=== PATIENT | male | born 1960 | race Caucasian/White ===

== ENCOUNTER 2021-08-07 10:29 | Inpatient (IN) | payer MEDICARE, MEDICAID ==
--- NOTE | 2021-08-07 10:39 | EDM.PDOC ---
ED HPI GENERAL MEDICAL PROBLEM - General Stated Complaint: [facility] Time Seen by Provider: 08/07/21 10:30 Source of Information: Reports: Patient, EMS History Limitations: Reports: Physical Impairment, Respiratory Distress - History of Present Illness INITIAL COMMENTS - FREE TEXT/NARRATIVE: 61-year-old unvaccinated for Covid male presents with shortness of breath. He was seen in the clinic 2 weeks ago and diagnosed with bronchitis, put on tapering prednisone and Zithromax. He seemed to get better but over the last couple of days he has been worse. No fevers or chills. One of his children c alled him today and he sounded so poorly that they sent the ambulance to his home. They found him hypoxic, very low oxygen saturations and struggling. He is not febrile. He is oxygenating into the upper 80s to low 90s with 15 L of nonrebreather. 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) Musculoskeletal History: Reports: Back Pain, Chronic Endocrine/Metabolic History: Reports: Multinodular Thyroid - Infectious Disease History Infectious Disease History: Reports: Chicken Pox, Measles, Mumps - Past Surgical History Head Surgeries/Procedures: Reports: None HEENT Surgical History: Reports: Adenoidectomy, Tonsillectomy Musculoskeletal Surgical History: Reports: Other (See Below) Other Musculoskeletal Surgeries/Procedures:: left ankle break x2 Dermatological Surgical History: Reports: None Social & Family History - Caffeine Use Caffeine Use: Reports: Coffee ED ROS GENERAL - Review of Systems Review Of Systems: See Below Constitutional: Reports: Fever, Chills, Malaise HEENT: Denies: Throat Pain Respiratory: Reports: Shortness of Breath, Wheezing, Cough Cardiovascular: Denies: Chest Pain GI/Abdominal: Reports: No Symptoms. Denies: Nausea, Vomiting : Reports: No Symptoms Musculoskeletal: Reports: Muscle Pain (Some generalized muscle aches) Skin: Reports: Other (Patient was "cyanotic" per EMS on arrival to his apart ment) Neurological: Reports: Dizziness. Denies: Headache Psychiatric: Reports: No Symptoms ED EXAM, GENERAL - Physical Exam Exam: See Below Exam Limited By: No Limitations General Appearance: Alert, Mild Distress (On arrival to the emergency room he had improved, mild respiratory distress with increased respiratory effort) Eye Exam: Bilateral Eye: Normal Inspection Head: Atraumatic Respiratory/Chest: Rales (Bilateral diffuse rales and rhonchi), Rhonchi, Wheezing (Diffuse expiratory wheezing) Cardiovascular: Regular Rate, Rhythm, Tachycardia GI/Abdominal: Soft, Non-Tender Extremities: Other (Patient has a trace of symmetric lower extremity edema bilaterally) Neurological: Alert, Oriented, No Motor/Sensory Deficits Psychiatric: Anxious Skin Exam: Warm, Dry, Other (Skin color is now good, capillary refill is normal) Course - Vital Signs Last Recorded V/S: Last Vital Signs Temp 99.7 F 08/07/21 14:17 Pulse 86 08/07/21 14:17 Resp 20 08/07/21 14:17 BP 118/56 L 08/07/21 14:17 Pulse Ox 91 L 08/07/21 14:17 - Orders/Labs/Meds Orders: Active Orders 24 hr Category Date Time Status CULTURE BLOOD [BC] Urgent Lab 08/07/21 11:00 Received CULTURE BLOOD [BC] Urgent Lab 08/07/21 11:10 Received Baricitinib [Olumiant] Med 08/07/21 13:00 Active 2 mg PO DAILY Blood Culture x2 Reflex Set [OM.PC] Urgent Oth 08/07/21 10:38 Ordered Medication Orders Acetaminophen (Acetaminophen 325 Mg Tab) 650 mg PO Q4H PRN PRN Reason: Pain (Mild 1-3)/fever Albuterol (Albuterol 8 Gm Inhaler) 0 gm INH ASDIRECTED PRN PRN Reason: Shortness of Breath Baricitinib (Baricitinib 2 Mg Tab) 2 mg PO DAILY LUIS ALBERTO Stop: 08/20/21 09:01 Last Admin: 08/07/21 13:12 Dose: 2 mg Documented by: DANDRE Dexamethasone (Dexamethasone 4 Mg/Ml Sdv) 6 mg IVPUSH Q24H [facility] Enoxaparin Sodium (Enoxaparin 40 Mg/0.4 Ml Syringe) 40 mg SUBCUT Q24H [facility] Remdesivir 100 mg/ Sodium (Chloride) 100 mls @ 100 mls/hr IV Q24H [facility] Stop: 08/11/21 13:59 Mometasone Furoate/Formoterol Fumar (Formoterol/Mometasone 200-5 Mcg 8.8 Gm Inhaler) 2 puff IH BIDRT [facility] Ondansetron HCl (Ondansetron 4 Mg/2 Ml Sdv) 4 mg IV Q4H PRN PRN Reason: Nausea/Vomiting Polyethylene Glycol (Polyethylene Glycol 3350 Powder 17 Gm Packet) 17 gm PO DAILY PRN PRN Reason: Constipation Sodium Chloride (Sodium Chloride 0.9% 10 Ml Syringe) 10 ml FLUSH ASDIRECTED PRN PRN Reason: Keep Vein Open Labs: Laboratory Tests 08/07/21 08/07/21 08/07/21 Range/Units 10:37 10:55 11:00 WBC 17.9 H (4.5-11.0) K/uL RBC 5.05 (4.30-5.90) M/uL Hgb 14.2 (12.0-15.0) g/dL Hct 42.8 (40.0-54.0) % MCV 85 (80-98) fL MCH 28 (27-31) pg MCHC 33 (32-36) % Plt Count 477 H (150-400) K/uL Add Manual Diff Yes Neutrophils % (Manual) 89 H (36-66) % Band Neutrophils % 2 L (5-11) % Lymphocytes % (Manual) 7 L (24-44) % Monocytes % (Manual) 2 (2-6) % Atypical Lymphocytes Rare Puncture Site Rt radial ABG pH 7.476 H (7.350-7.450) ABG pCO2 34.5 L (35.0-42.0) mmHg ABG pO2 111.0 H (75.0-100.0) mmHg ABG HCO3 25.2 (22.0-26.0) mmol/L ABG Total CO2 21.6 L (23.0-27.0) mmol/L ABG O2 Saturation 98.3 H (95.0-98.0) % ABG O2 Content 19.8 (15.0-23.0) %vol ABG Base Excess 2.4 mm/L ABG Hemoglobin 14.7 (13.5-18.0) g/dL ABG Oxyhemoglobin 95.4 % ABG Carboxyhemoglobin 2.3 H (0.0-1.6) % ABG Methemoglobin 0.7 % Daquan Test Pass O2 Delivery Device Non rebr mask Oxygen Flow Rate 15.0 L Sodium (140-148) mmol/L Potassium (3.6-5.2) mmol/L Chloride (100-108) mmol/L Carbon Dioxide (21-32) mmol/L Anion Gap (5.0-14.0) mmol/L BUN (7-18) mg/dL Creatinine (0.8-1.3) mg/dL Est Cr Clr Drug Dosing mL/min Estimated GFR (MDRD) (>60) Glucose (74-106) mg/dL Lactic Acid (0.4-2.0) mmol/L Calcium (8.5-10.1) mg/dL Total Bilirubin (0.2-1.0) mg/dL AST (15-37) U/L ALT (12-78) U/L Alkaline Phosphatase (46-116) U/L Total Protein (6.4-8.2) g/dL Albumin (3.4-5.0) g/dL Globulin (2.3-3.5) g/dL Albumin/Globulin Ratio (1.2-2.2) Influenza Type A RNA Negative (NEGATIVE) RSV RNA (INAAT) Negative (NEGATIVE) Influenza Type B RNA Negative (NEGATIVE) SARS-CoV-2 RNA (TOM) Positive H (NEGATIVE) 08/07/21 08/07/21 Range/Units 11:00 11:00 WBC (4.5-11.0) K/uL RBC (4.30-5.90) M/uL Hgb (12.0-15.0) g/dL Hct (40.0-54.0) % MCV (80-98) fL MCH (27-31) pg MCHC (32-36) % Plt Count (150-400) K/uL Add Manual Diff Neutrophils % (Manual) (36-66) % Band Neutrophils % (5-11) % Lymphocytes % (Manual) (24-44) % Monocytes % (Manual) (2-6) % Atypical Lymphocytes Puncture Site ABG pH (7.350-7.450) ABG pCO2 (35.0-42.0) mmHg ABG pO2 (75.0-100.0) mmHg ABG HCO3 (22.0-26.0) mmol/L ABG Total CO2 (23.0-27.0) mmol/L ABG O2 Saturation (95.0-98.0) % ABG O2 Content (15.0-23.0) %vol ABG Base Excess mm/L ABG Hemoglobin (13.5-18.0) g/dL ABG Oxyhemoglobin % ABG Carboxyhemoglobin (0.0-1.6) % ABG Methemoglobin % [place] Test O2 Delivery Device Oxygen Flow Rate L Sodium 136 L (140-148) mmol/L Potassium 3.5 L (3.6-5.2) mmol/L Chloride 94 L (100-108) mmol/L Carbon Dioxide 30 (21-32) mmol/L Anion Gap 15.5 H (5.0-14.0) mmol/L BUN 33 H (7-18) mg/dL Creatinine 2.0 H (0.8-1.3) mg/dL Est Cr Clr Drug Dosing 43.11 mL/min Estimated GFR (MDRD) 34 L (>60) Glucose 119 H (74-106) mg/dL Lactic Acid 3.2 H (0.4-2.0) mmol/L Calcium 7.9 L (8.5-10.1) mg/dL Total Bilirubin 2.1 H (0.2-1.0) mg/dL AST 98 H (15-37) U/L ALT 89 H (12-78) U/L Alkaline Phosphatase 160 H (46-116) U/L Total Protein 7.0 (6.4-8.2) g/dL Albumin 2.3 L (3.4-5.0) g/dL Globulin 4.7 H (2.3-3.5) g/dL Albumin/Globulin Ratio 0.5 L (1.2-2.2) Influenza Type A RNA (NEGATIVE) RSV RNA (INAAT) (NEGATIVE) Influenza Type B RNA (NEGATIVE) SARS-CoV-2 RNA (TOM) (NEGATIVE) Meds: Medications Generic Name Dose Route Start Last Admin Trade Name Freq PRN Reason Stop Dose Admin Acetaminophen 650 mg 08/07/21 14:16 Acetaminophen 325 Mg Tab PO Q4H PRN Pain (Mild 1-3)/fever Albuterol 0 gm 08/07/21 14:16 Albuterol 8 Gm Inhaler INH ASDIRECTED PRN Shortness of Breath Baricitinib 2 mg 08/07/21 13:00 08/07/21 13:12 Baricitinib 2 Mg Tab PO 08/20/21 09:01 2 mg DAILY LUIS ALBERTO Administration Dexamethasone 6 mg 08/08/21 09:00 Dexamethasone 4 Mg/Ml Sdv IVPUSH Q24H LUIS ALBERTO Enoxaparin Sodium 40 mg 08/07/21 16:00 Enoxaparin 40 Mg/0.4 Ml Syringe SUBCUT Q24H ULIS ALBERTO Remdesivir 100 mg/ Sodium 100 mls @ 100 mls/hr 08/08/21 13:00 Chloride IV 08/11/21 13:59 Q24H LUIS ALBERTO Mometasone Furoate/Formoterol Fumar 2 puff 08/07/21 21:00 Formoterol/Mometasone 200-5 Mcg 8.8 Gm Inhaler IH BIDRT LUIS ALBERTO Ondansetron HCl 4 mg 08/07/21 14:16 Ondansetron 4 Mg/2 Ml Sdv IV Q4H PRN Nausea/Vomiting Polyethylene Glycol 17 gm 08/07/21 14:16 Polyethylene Glycol 3350 Powder 17 Gm Packet PO DAILY PRN Constipation Sodium Chloride 10 ml 08/07/21 14:16 Sodium Chloride 0.9% 10 Ml Syringe FLUSH ASDIRECTED PRN Keep Vein Open Discontinued Medications Generic Name Dose Route Start Last Admin Trade Name Portia PRN Reason Stop Dose Admin Remdesivir 200 mg/ Sodium 250 mls @ 250 mls/hr 08/07/21 13:00 08/07/21 13:09 Chloride IV 08/07/21 13:59 250 mls/hr ONETIME ONE Administration Methylprednisolone Sodium Succinate 125 mg 08/07/21 11:06 08/07/21 11:09 Methylprednisolone Sodium Succinate 125 Mg/2 Ml Sdv IVPUSH 08/07/21 11:07 125 mg ONETIME ONE Administration - Re-Assessments/Exams Free Text/Narrative Re-Assessment/Exam: 08/07/21 13:06 High flow oxygen was continued and a portable chest x-ray was obtained. This showed bilateral pulmonary infiltrates, left greater than right. IVs were started and the patient was given 125 mg of IV Solu-Medrol. A DuoNeb was initially ordered but held pending coronavirus testing, which returned positive. After consultation with the hospitalist service, 200 mg of IV remdesivir was given and the patient will be prepared for inpatient hospitalization for treatment for pneumonia due to COVID-19, resulting in hypoxia. Departure - Departure Time of Disposition: 14:02 Disposition: Admitted As Inpatient 67 Clinical Impression: Pneumonia due to COVID-19 virus, Hypoxia - Discharge Information Sepsis Event Note (ED) - Focused Exam Vital Signs: Vital Signs Temp Pulse Resp BP Pulse Ox 08/07/21 11:43 100 101/64 87 L 08/07/21 11:14 91 16 109/51 L 88 L 08/07/21 10:36 96.6 F L 108 H 30 H 103/50 L 90 L - My Orders Last 24 Hours: My Active Orders 08/07/21 10:38 Blood Culture x2 Reflex Set [OM.PC] Urgent 08/07/21 11:00 CULTURE BLOOD [BC] Urgent 08/07/21 11:10 CULTURE BLOOD [BC] Urgent - Assessment/Plan Last 24 Hours: My Active Orders 08/07/21 10:38 Blood Culture x2 Reflex Set [OM.PC] Urgent 08/07/21 11:00 CULTURE BLOOD [BC] Urgent 08/07/21 11:10 CULTURE BLOOD [BC] Urgent
[2021-08-07] MEDS ORDERED: methylPREDNISolone Sodium Succinate 125 MG/2 ML SDV IVPUSH ONE (11:06)
[2021-08-07 11:29] LABS: CORONAVIRUS COVID-19 NAA POSITIVE (NEGATIVE)
--- NOTE | 2021-08-07 11:40 | CR ---
CHEST: Portable 08/07/2021 at 11:33 AM CLINICAL HISTORY:Hypoxia COMPARISON:2018 FINDINGS: There are diffuse bilateral pulmonary infiltrates left greater than right. Heart is enlarged but similar to prior study. No effusions are seen. Impression: Moderate diffuse bilateral pulmonary infiltrates
[2021-08-07] MEDS ORDERED: REMDESIVIR 200 MG in Sodium Chloride 0.9% 250 ML IV ONE ×2 (12:13→13:00)
--- NOTE | 2021-08-07 12:44 | PCM.HP.2 ---
H&P History of Present Illness - General Date of Service: 08/07/21 Admit Problem/Dx: Admission Diagnosis/Problem Admission Diagnosis/Problem Hypoxia Source of Information: Patient, Provider, RN Notes Reviewed History Limitations: Reports: No Limitations - History of Present Illness Initial Comments - Free Text/Narative: Mr. Loaiza is a 61-year-old gentleman who was admitted through the emergency department with weakness, shortness of breath, and hypoxia, secondary to COVID- 19 infection with bilateral pneumonia. He is not felt well over the past 8 days with progressive weakness and shortness of breath. Family called EMS to have the patient checked on when they were unable to get a hold of him. He was found to be extremely hypoxic with an oxygen saturation on room air of 60%. He was brought into the emergency department for further evaluation. Chest x-ray shows bilateral pulmonary infiltrates consistent with COVID-19 infection. He is currently on maximal flow with a nonrebreather mask and has adequate saturations. White blood cell count is elevated and procalcitonin level is 1.07. D-dimer is close to 2000 and C-reactive protein is 24. 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) Respiratory History: Reports: Asthma Musculoskeletal History: Reports: Back Pain, Chronic Endocrine/Metabolic History: Reports: Multinodular Thyroid, Obesity/BMI 30+ - Infectious Disease History Infectious Disease History: Reports: Chicken Pox, Measles, Mumps - Past Surgical History Head Surgeries/Procedures: Reports: None HEENT Surgical History: Reports: Adenoidectomy, Tonsillectomy Musculoskeletal Surgical History: Reports: Other (See Below) Other Musculoskeletal Surgeries/Procedures:: left ankle break x2 Social & Family History - Tobacco Use Tobacco Use Status *Q: Former Tobacco User Used Tobacco, but Quit: Yes Month/Year Tobacco Last Used: 2014 - Caffeine Use Caffeine Use: Reports: Coffee - Recreational Drug Use Recreational Drug Use: No H&P Review of Systems - Review of Systems: Review Of Systems: See Below General: Reports: Malaise, Weakness, Fatigue. Denies: Fever, Chills HEENT: Reports: No Symptoms Pulmonary: Reports: Shortness of Breath, Cough. Denies: Wheezing, Pleuritic Chest Pain, Sputum, Hemoptysis Cardiovascular: Reports: Dyspnea on Exertion. Denies: Chest Pain, Palpitations, Orthopnea, PND, Edema, Lightheadedness Gastrointestinal: Reports: No Symptoms Genitourinary: Reports: No Symptoms Musculoskeletal: Reports: No Symptoms Skin: Reports: No Symptoms Psychiatric: Reports: No Symptoms Neurological: Reports: No Symptoms Hematologic/Lymphatic: Reports: No Symptoms Immunologic: Reports: No Symptoms Exam - Exam Exam: See Below - Vital Signs Vital Signs: Last Vital Signs Temp 96.6 F L 08/07/21 10:36 Pulse 92 08/07/21 12:35 Resp 16 08/07/21 11:14 BP 114/72 08/07/21 12:35 Pulse Ox 90 L 08/07/21 12:35 Weight: 350 lb - Exam Quality Assessment: Supplemental Oxygen, DVT Prophylaxis General: Alert, Oriented, Cooperative, Moderate Distress HEENT: Conjunctiva Clear, Hearing Intact, Mucosa Moist & Kuna, Normal Nasal Septum, Posterior Pharynx Clear, Pupils Equal Neck: Supple, Trachea Midline, +2 Carotid Pulse wo Bruit Lungs: Decreased Breath Sounds, Crackles. No: Rales, Rhonchi, Wheezing Cardiovascular: Regular Rate, Regular Rhythm, Normal S1, Normal S2. No: Systolic Murmur, Diastolic Murmur GI/Abdominal Exam: Soft, Non-Tender, No Organomegaly, No Distention Back Exam: Normal Inspection, Full Range of Motion Extremities: Non-Tender, No Pedal Edema Skin: Warm, Dry, Intact Neurological: Cranial Nerves Intact, Strength Equal Bilateral, Normal Speech, Normal Tone, Sensation Intact. No: Focal Deficit Neuro Extensive - Mental Status: Alert, Oriented x3, Normal Mood/Affect, Normal Cognition, Memory Intact - Patient Data Lab Results Last 24 hrs: Laboratory Results - last 24 hr 08/07/21 08/07/21 08/07/21 Range/Units 10:37 10:55 11:00 WBC 17.9 H (4.5-11.0) K/uL RBC 5.05 (4.30-5.90) M/uL Hgb 14.2 (12.0-15.0) g/dL Hct 42.8 (40.0-54.0) % MCV 85 (80-98) fL MCH 28 (27-31) pg MCHC 33 (32-36) % Plt Count 477 H (150-400) K/uL Add Manual Diff Yes Neutrophils % (Manual) 89 H (36-66) % Band Neutrophils % 2 L (5-11) % Lymphocytes % (Manual) 7 L (24-44) % Monocytes % (Manual) 2 (2-6) % Atypical Lymphocytes Rare Puncture Site Rt radial ABG pH 7.476 H (7.350-7.450) ABG pCO2 34.5 L (35.0-42.0) mmHg ABG pO2 111.0 H (75.0-100.0) mmHg ABG HCO3 25.2 (22.0-26.0) mmol/L ABG Total CO2 21.6 L (23.0-27.0) mmol/L ABG O2 Saturation 98.3 H (95.0-98.0) % ABG O2 Content 19.8 (15.0-23.0) %vol ABG Base Excess 2.4 mm/L ABG Hemoglobin 14.7 (13.5-18.0) g/dL ABG Oxyhemoglobin 95.4 % ABG Carboxyhemoglobin 2.3 H (0.0-1.6) % ABG Methemoglobin 0.7 % [facility] Test Pass O2 Delivery Device Non rebr mask Oxygen Flow Rate 15.0 L Sodium (140-148) mmol/L Potassium (3.6-5.2) mmol/L Chloride (100-108) mmol/L Carbon Dioxide (21-32) mmol/L Anion Gap (5.0-14.0) mmol/L BUN (7-18) mg/dL Creatinine (0.8-1.3) mg/dL Est Cr Clr Drug Dosing mL/min Estimated GFR (MDRD) (>60) Glucose (74-106) mg/dL Lactic Acid (0.4-2.0) mmol/L Calcium (8.5-10.1) mg/dL Total Bilirubin (0.2-1.0) mg/dL AST (15-37) U/L ALT (12-78) U/L Alkaline Phosphatase (46-116) U/L Total Protein (6.4-8.2) g/dL Albumin (3.4-5.0) g/dL Globulin (2.3-3.5) g/dL Albumin/Globulin Ratio (1.2-2.2) Influenza Type A RNA Negative (NEGATIVE) RSV RNA (INAAT) Negative (NEGATIVE) Influenza Type B RNA Negative (NEGATIVE) SARS-CoV-2 RNA (TOM) Positive H (NEGATIVE) 08/07/21 08/07/21 Range/Units 11:00 11:00 WBC (4.5-11.0) K/uL RBC (4.30-5.90) M/uL Hgb (12.0-15.0) g/dL Hct (40.0-54.0) % MCV (80-98) fL MCH (27-31) pg MCHC (32-36) % Plt Count (150-400) K/uL Add Manual Diff Neutrophils % (Manual) (36-66) % Band Neutrophils % (5-11) % Lymphocytes % (Manual) (24-44) % Monocytes % (Manual) (2-6) % Atypical Lymphocytes Puncture Site ABG pH (7.350-7.450) ABG pCO2 (35.0-42.0) mmHg ABG pO2 (75.0-100.0) mmHg ABG HCO3 (22.0-26.0) mmol/L ABG Total CO2 (23.0-27.0) mmol/L ABG O2 Saturation (95.0-98.0) % ABG O2 Content (15.0-23.0) %vol ABG Base Excess mm/L ABG Hemoglobin (13.5-18.0) g/dL ABG Oxyhemoglobin % ABG Carboxyhemoglobin (0.0-1.6) % ABG Methemoglobin % [facility] Test O2 Delivery Device Oxygen Flow Rate L Sodium 136 L (140-148) mmol/L Potassium 3.5 L (3.6-5.2) mmol/L Chloride 94 L (100-108) mmol/L Carbon Dioxide 30 (21-32) mmol/L Anion Gap 15.5 H (5.0-14.0) mmol/L BUN 33 H (7-18) mg/dL Creatinine 2.0 H (0.8-1.3) mg/dL Est Cr Clr Drug Dosing 43.11 mL/min Estimated GFR (MDRD) 34 L (>60) Glucose 119 H (74-106) mg/dL Lactic Acid 3.2 H (0.4-2.0) mmol/L Calcium 7.9 L (8.5-10.1) mg/dL Total Bilirubin 2.1 H (0.2-1.0) mg/dL AST 98 H (15-37) U/L ALT 89 H (12-78) U/L Alkaline Phosphatase 160 H (46-116) U/L Total Protein 7.0 (6.4-8.2) g/dL Albumin 2.3 L (3.4-5.0) g/dL Globulin 4.7 H (2.3-3.5) g/dL Albumin/Globulin Ratio 0.5 L (1.2-2.2) Influenza Type A RNA (NEGATIVE) RSV RNA (INAAT) (NEGATIVE) Influenza Type B RNA (NEGATIVE) SARS-CoV-2 RNA (TOM) (NEGATIVE) Result Diagrams: 08/07/21 11:00 08/07/21 11:00 Sepsis Event Note - Evaluation Sepsis Screening Result: Possible Sepsis Risk - Focused Exam Vital Signs: Vital Signs Temp Pulse Resp BP Pulse Ox 08/07/21 12:35 92 114/72 90 L 08/07/21 11:43 100 101/64 87 L 08/07/21 11:14 91 16 109/51 L 88 L 08/07/21 10:36 96.6 F L 108 H 30 H 103/50 L 90 L *Q Meaningful Use (ADM) - VTE Risk Assess *Q Each Risk Factor Represents 1 Point: Obesity ( BMI > 25 kg/m2), Serious lung disease including pneumonia, Abnormal Pulmonary Function (COPD), Other Risk Factor (COVID-19 infection) Total Score 1 Point Risk Factors: 4 Each Risk Factor Represents 2 Points: Age 60 - 74 Years Total Score 2 Point Risk Factors: 2 Each Risk Factor Represents 3 Points: None Total Score 3 Point Risk Factors: 0 Each Risk Factor Represents 5 Points: None Total Score 5 Point Risk Factors: 0 Venous Thromboembolism Risk Factor Score *Q: 6 Problem List Initiated/Reviewed/Updated: Yes Orders Last 24hrs: Active Orders 24 hr Category Date Time Status Patient Status Manage Transfer [TRANSFER] Routine ADT 08/07/21 12:34 Active CRP [C-REACTIVE PROTEIN] [CHEM] Stat Lab 08/07/21 12:43 Ordered CULTURE BLOOD [BC] Urgent Lab 08/07/21 11:00 Received CULTURE BLOOD [BC] Urgent Lab 08/07/21 11:10 Received D Dimer [D-DIMER QUANTITATIVE] [COAG] Stat Lab 08/07/21 12:43 Ordered PROCALCITONIN [CHEM] Stat Lab 08/07/21 12:34 Received Baricitinib [Olumiant] Med 08/07/21 12:45 Ordered 4 mg PO DAILY Remdesivir 200 mg Med 08/07/21 13:00 Active Sodium Chloride 0.9% [Normal Saline] 250 ml IV ONETIME Blood Culture x2 Reflex Set [OM.PC] Urgent Oth 08/07/21 10:38 Ordered Resuscitation Status Routine Resus Stat 08/07/21 12:37 Ordered Medication Orders Baricitinib (Baricitinib 2 Mg Tab) 4 mg PO DAILY LUIS ALBERTO Stop: 08/20/21 09:01 Remdesivir 200 mg/ Sodium (Chloride) 250 mls @ 250 mls/hr IV ONETIME ONE Stop: 08/07/21 13:59 Assessment/Plan Comment:: ASSESSMENT AND PLAN COVID-19 INFECTION-with bilateral pneumonia and acute on chronic hypoxic respiratory failure. He is requiring high level of supplemental oxygen and when found by EMS today was noted to have oxygen saturation in the 60s on room air. He has improved and currently is on nonrebreather at 100% with adequate oxygenation. -Transition to high flow humidified oxygen -Limit IV fluids -Prone positioning if possible -Remdesivir 200 mg IV today, then 100 mg daily for an additional 4 days, today is day 1 of 5 -Solu-Medrol 125 mg IV given in the emergency department -Start dexamethasone 6 mg IV daily tomorrow -Baricitinib 2 mg p.o. daily, reduce dose because of kidney function ACUTE HYPOXIC RESPIRATORY FAILURE-secondary to COVID-19 infection and underlying COPD -Management as above COPD-no evidence of acute exacerbation -Continue outpatient medications CHRONIC KIDNEY DISEASE-unclear as to what his baseline renal function is -Closely monitor urine output and renal function MAINTENANCE ISSUES -DVT prophylaxis; Lovenox 40 mg subcu daily -GI prophylaxis; not indicated -Paulino catheter; not indicated -Nutrition; regular diet -Nicotine dependence; not required CODE STATUS-FULL CODE ADMISSION STATUS-patient will be admitted to inpatient status, expect at least a 2 night hospital stay for evaluation and management of problems as outlined above. At the time of this admission I do not reasonably expected evaluation and management of this problem will require more than a 96 hour hospital stay. DISPOSITION-anticipate discharge to home after the hospital stay. PRIMARY CARE PROVIDER-patient does not currently have a primary care provider - Mortality Measure Prognosis:: Good
[2021-08-07] MEDS ORDERED: Ondansetron 4 MG/2 ML SDV IV PRN (14:16)
[2021-08-07] MEDS ORDERED: Sodium Chloride 0.9% 10 ML Syringe FLUSH PRN (14:16)
[2021-08-07] MEDS ORDERED: Polyethylene Glycol 3350 Powder 17 GM Packet PO PRN (14:16)
[2021-08-07] MEDS ORDERED: Albuterol 8 GM Inhaler INH PRN (14:16)
[2021-08-07] MEDS ORDERED: Acetaminophen 325 MG Tab PO PRN (14:16)
[2021-08-07] MEDS: Enoxaparin 40 MG/0.4 ML Syringe SUBCUT SCH (16:08)
[2021-08-07] MEDS: Formoterol/Mometasone 200-5 MCG 8.8 GM Inhaler IH SCH (20:46)
[2021-08-07] MEDS: Benzonatate 100 MG Cap PO PRN (20:46)
[2021-08-07] MEDS ORDERED: Azithromycin 250 MG Tab PO SCH (23:45)
[2021-08-08] MEDS ORDERED: Doxycycline 100 MG in Sodium Chloride 0.9% 100 ML IV ONE ×2
[2021-08-08] MEDS ORDERED: Dimethicone 20%/Zinc Oxide 25% 56 GM Spray Bottle TOP PRN (05:04)
--- NOTE | 2021-08-08 06:18 | PCM.SN.2 ---
- Free Text/Narrative Note: Telephone calls 2nd Floor Med-Surg time 08/07/2021 @ 23:45 O: severe sepsis risk, WBC 17.9, lactic acid 3.2, crp 24.74 A: sepsis risk, Covid 19 with pneumonia, COPD P: IV Doxy 100 mg every 12 hours PO Zithromax 500mg now, then 250 mg daily x 4 days blood cultures x2 pending am labs pending Time 08/08/2021@ 03:24 O: has note voided >12 hours, bladder scan >1000ml, uncomfortable A: bladder retention P: place indwelling lemus cath for strict I&O urine sample pending Time 08/08/2021@ 05:51 S: patient is anxious, frequent calls worried about health A: anxious about health P: Ativan 0.5 mg po every 4 hours as needed for anxiety may need to increase as needed.
[2021-08-08] MEDS: Formoterol/Mometasone 200-5 MCG 8.8 GM Inhaler IH SCH ×2 (07:36→20:05)
[2021-08-08] MEDS: LORazepam 0.5 MG Tab PO PRN ×2 (08:35→20:01)
[2021-08-08] MEDS: Doxycycline 100 MG in Sodium Chloride 0.9% 100 ML IV SCH ×2 (08:36→20:02)
[2021-08-08] MEDS: Dexamethasone 4 MG/ML SDV IVPUSH SCH (08:36)
[2021-08-08] MEDS ORDERED: Potassium Chloride 20 MEQ Tab.ER PO ONE ×2 (09:30→17:00)
[2021-08-08] MEDS: cefTRIAXone 1 GM in Sodium Chloride 0.9% 50 ML IV SCH (11:23)
[2021-08-08] MEDS ORDERED: REMDESIVIR 100 MG in Sodium Chloride 0.9% 100 ML IV SCH (13:00)
--- NOTE | 2021-08-08 14:50 | PCM.PN ---
- General Info Date of Service: 08/08/21 Subjective Update: Mr. Loaiza has continued to require high flow oxygen throughout the night and has had saturations with activity and even at rest into the 80s. Subjectively he denies shortness of breath, respiratory rate has been in the low to mid 20s. Because of increased hypoxia during the night he was started on antibiotic therapy with doxycycline and ceftriaxone. Functional Status: Denies: Tolerating Diet, Ambulating - Review of Systems General: Reports: Weakness, Fatigue. Denies: Fever, Chills Pulmonary: Reports: Shortness of Breath, Cough. Denies: Pleuritic Chest Pain, Sputum, Hemoptysis, Wheezing Cardiovascular: Reports: Dyspnea on Exertion. Denies: Chest Pain, Palpitations, Orthopnea, PND, Edema, Lightheadedness Gastrointestinal: Reports: No Symptoms Genitourinary: Reports: No Symptoms - Patient Data Vitals - Most Recent: Last Vital Signs Temp 96.6 F L 08/08/21 14:28 Pulse 79 08/08/21 14:28 Resp 18 08/08/21 14:28 BP 121/72 08/08/21 14:28 Pulse Ox 92 L 08/08/21 14:28 Weight - Most Recent: 297 lb I&O - Last 24 Hours: Intake & Output 08/07/21 08/08/21 08/08/21 22:59 06:59 14:59 Intake Total 660 Output Total 2600 250 Balance 660 -2600 -250 Lab Results Last 24 Hours: Laboratory Results - last 24 hr 08/08/21 08/08/21 08/08/21 Range/Units 03:24 04:35 04:35 WBC 19.4 H (4.5-11.0) K/uL RBC 4.93 (4.30-5.90) M/uL Hgb 14.3 (12.0-15.0) g/dL Hct 41.8 (40.0-54.0) % MCV 85 (80-98) fL MCH 29 (27-31) pg MCHC 34 (32-36) % Plt Count 418 H (150-400) K/uL Add Manual Diff Yes Neutrophils % (Manual) 81 H (36-66) % Band Neutrophils % 2 L (5-11) % Lymphocytes % (Manual) 12 L (24-44) % Monocytes % (Manual) 5 (2-6) % D-Dimer, Quantitative 5832.57 H (0.0-500.0) ng/mL Sodium (140-148) mmol/L Potassium (3.6-5.2) mmol/L Chloride (100-108) mmol/L Carbon Dioxide (21-32) mmol/L Anion Gap (5.0-14.0) mmol/L BUN (7-18) mg/dL Creatinine (0.8-1.3) mg/dL Est Cr Clr Drug Dosing mL/min Estimated GFR (MDRD) (>60) Glucose (74-106) mg/dL Calcium (8.5-10.1) mg/dL Total Bilirubin (0.2-1.0) mg/dL AST (15-37) U/L ALT (12-78) U/L Alkaline Phosphatase (46-116) U/L C-Reactive Protein (0.0-0.3) mg/dL Total Protein (6.4-8.2) g/dL Albumin (3.4-5.0) g/dL Globulin (2.3-3.5) g/dL Albumin/Globulin Ratio (1.2-2.2) Urine Color Yellow (YELLOW) Urine Appearance Slightly cloudy A (CLEAR) Urine pH 5.5 (5.0-8.0) Ur Specific [place] 1.025 (1.008-1.030) Urine Protein 30 H (NEGATIVE) mg/dL Urine Glucose (UA) Negative (NEGATIVE) mg/dL Urine Ketones Negative (NEGATIVE) mg/dL Urine Occult Blood Small H (NEGATIVE) Urine Nitrite Negative (NEGATIVE) Urine Bilirubin Small H (NEGATIVE) Urine Urobilinogen 2.0 H (0.2-1.0) EU/dL Ur Leukocyte Esterase Negative (NEGATIVE) Urine RBC 0-5 (0-5) Urine WBC 0-5 (0-5) Ur Epithelial Cells Rare Amorphous Sediment Moderate Urine Bacteria Few Urine Mucus Not seen 08/08/21 Range/Units 04:35 WBC (4.5-11.0) K/uL RBC (4.30-5.90) M/uL Hgb (12.0-15.0) g/dL Hct (40.0-54.0) % MCV (80-98) fL MCH (27-31) pg MCHC (32-36) % Plt Count (150-400) K/uL Add Manual Diff Neutrophils % (Manual) (36-66) % Band Neutrophils % (5-11) % Lymphocytes % (Manual) (24-44) % Monocytes % (Manual) (2-6) % D-Dimer, Quantitative (0.0-500.0) ng/mL Sodium 141 (140-148) mmol/L Potassium 3.4 L (3.6-5.2) mmol/L Chloride 100 (100-108) mmol/L Carbon Dioxide 29 (21-32) mmol/L Anion Gap 15.4 H (5.0-14.0) mmol/L BUN 31 H (7-18) mg/dL Creatinine 1.3 (0.8-1.3) mg/dL Est Cr Clr Drug Dosing 76.15 mL/min Estimated GFR (MDRD) 56 L (>60) Glucose 152 H (74-106) mg/dL Calcium 8.2 L (8.5-10.1) mg/dL Total Bilirubin 1.4 H (0.2-1.0) mg/dL AST 88 H (15-37) U/L ALT 85 H (12-78) U/L Alkaline Phosphatase 161 H (46-116) U/L C-Reactive Protein 23.30 H (0.0-0.3) mg/dL Total Protein 6.7 (6.4-8.2) g/dL Albumin 2.2 L (3.4-5.0) g/dL Globulin 4.5 H (2.3-3.5) g/dL Albumin/Globulin Ratio 0.5 L (1.2-2.2) Urine Color (YELLOW) Urine Appearance (CLEAR) Urine pH (5.0-8.0) Ur Specific [place] (1.008-1.030) Urine Protein (NEGATIVE) mg/dL Urine Glucose (UA) (NEGATIVE) mg/dL Urine Ketones (NEGATIVE) mg/dL Urine Occult Blood (NEGATIVE) Urine Nitrite (NEGATIVE) Urine Bilirubin (NEGATIVE) Urine Urobilinogen (0.2-1.0) EU/dL Ur Leukocyte Esterase (NEGATIVE) Urine RBC (0-5) Urine WBC (0-5) Ur Epithelial Cells Amorphous Sediment Urine Bacteria Urine Mucus Silviano Results Last 24 Hours: Microbiology 08/07/21 11:10 Aerobic Blood Culture - Preliminary Blood - Arterial Line - Direct Stick NO GROWTH AFTER 1 DAY Anaerobic Blood Culture - Preliminary NO GROWTH AFTER 1 DAY 08/07/21 11:00 Aerobic Blood Culture - Preliminary Blood - Arm, Right NO GROWTH AFTER 1 DAY Anaerobic Blood Culture - Preliminary NO GROWTH AFTER 1 DAY Med Orders - Current: Current Medications Acetaminophen (Acetaminophen 325 Mg Tab) 650 mg PO Q4H PRN PRN Reason: Pain (Mild 1-3)/fever Albuterol (Albuterol 8 Gm Inhaler) 0 gm INH ASDIRECTED PRN PRN Reason: Shortness of Breath Baricitinib (Baricitinib 2 Mg Tab) 2 mg PO DAILY [facility] Stop: 08/20/21 09:01 Last Admin: 08/08/21 10:04 Dose: 2 mg Documented by: Benzonatate (Benzonatate 100 Mg Cap) 100 mg PO Q6H PRN PRN Reason: Cough Last Admin: 08/07/21 20:46 Dose: 100 mg Documented by: Dexamethasone (Dexamethasone 4 Mg/Ml Sdv) 6 mg IVPUSH Q24H [facility] Last Admin: 08/08/21 08:36 Dose: 6 mg Documented by: Dimethicone/Zinc Oxide (Dimethicone 20%/Zinc Oxide 25% 56 Gm [place] Bottle) 1 gm TOP ASDIRECTED PRN PRN Reason: groin Enoxaparin Sodium (Enoxaparin 40 Mg/0.4 Ml Syringe) 40 mg SUBCUT Q24H [facility] Last Admin: 08/07/21 16:08 Dose: 40 mg Documented by: Remdesivir 100 mg/ Sodium (Chloride) 100 mls @ 100 mls/hr IV Q24H [facility] Stop: 08/11/21 13:59 Doxycycline Hyclate 100 mg/ (Sodium Chloride) 100 mls @ 100 mls/hr IV Q12H [facility] Last Admin: 08/08/21 08:36 Dose: 100 mls/hr Documented by: Ceftriaxone Sodium 1 gm/ (Sodium Chloride) 50 mls @ 100 mls/hr IV Q24H [facility] Last Admin: 08/08/21 11:23 Dose: 100 mls/hr Documented by: Lorazepam (Lorazepam 0.5 Mg Tab) 0.5 mg PO Q4H PRN PRN Reason: Anxiety Last Admin: 08/08/21 08:35 Dose: 0.5 mg Documented by: Mometasone Furoate/Formoterol Fumar (Formoterol/Mometasone 200-5 Mcg 8.8 Gm Inhaler) 2 puff IH BIDRT [facility] Last Admin: 08/08/21 07:36 Dose: 2 puff Documented by: Ondansetron HCl (Ondansetron 4 Mg/2 Ml Sdv) 4 mg IV Q4H PRN PRN Reason: Nausea/Vomiting Polyethylene Glycol (Polyethylene Glycol 3350 Powder 17 Gm Packet) 17 gm PO DA BLAISE PRN PRN Reason: Constipation Potassium Chloride (Potassium Chloride 20 Meq Tab.Er) 40 meq PO ONETIME ONE Stop: 08/08/21 17:01 Sodium Chloride (Sodium Chloride 0.9% 10 Ml Syringe) 10 ml FLUSH ASDIRECTED PRN PRN Reason: Keep Vein Open Discontinued Medications Azithromycin (Azithromycin 250 Mg Tab) 250 mg PO DAILY [facility] Last Admin: 08/08/21 00:02 Dose: 500 mg Documented by: Azithromycin (Azithromycin 250 Mg Tab) 250 mg PO BEDTIME [facility]IS [facility]BERTO Stop: 08/11/21 21:01 Remdesivir 200 mg/ Sodium (Chloride) 250 mls @ 250 mls/hr IV ONETIME ONE Stop: 08/07/21 13:59 Last Admin: 08/07/21 13:09 Dose: 250 mls/hr Documented by: Doxycycline Hyclate 100 mg/ (Sodium Chloride) 100 mls @ 100 mls/hr IV NOW ONE Stop: 08/08/21 00:59 Last Admin: 08/08/21 00:02 Dose: 100 mls/hr Documented by: Methylprednisolone Sodium Succinate (Methylprednisolone Sodium Succinate 125 Mg/2 Ml Sdv) 125 mg IVPUSH ONETIME ONE Stop: 08/07/21 11:07 Last Admin: 08/07/21 11:09 Dose: 125 mg Documented by: Potassium Chloride (Potassium Chloride 20 Meq Tab.Er) 40 meq PO ONETIME ONE Stop: 08/08/21 09:31 Last Admin: 08/08/21 09:58 Dose: 40 meq Documented by: - Exam Quality Assessment: Supplemental Oxygen, DVT Prophylaxis Urinary Catheter Total Time: 0Days 6Hours General: Alert, Oriented, Cooperative, Moderate Distress Lungs: Decreased Breath Sounds, Crackles. No: Rales, Rhonchi, Wheezing Cardiovascular: Regular Rate, Regular Rhythm, No Murmurs GI/Abdominal Exam: Soft, Non-Tender, No Organomegaly, No Distention Extremities: Non-Tender, No Pedal Edema - Patient Data Lab Results Last 24 hrs: Laboratory Results - last 24 hr 08/08/21 08/08/21 08/08/21 Range/Units 03:24 04:35 04:35 WBC 19.4 H (4.5-11.0) K/uL RBC 4.93 (4.30-5.90) M/uL Hgb 14.3 (12.0-15.0) g/dL Hct 41.8 (40.0-54.0) % MCV 85 (80-98) fL MCH 29 (27-31) pg MCHC 34 (32-36) % Plt Count 418 H (150-400) K/uL Add Manual Diff Yes Neutrophils % (Manual) 81 H (36-66) % Band Neutrophils % 2 L (5-11) % Lymphocytes % (Manual) 12 L (24-44) % Monocytes % (Manual) 5 (2-6) % D-Dimer, Quantitative 5832.57 H (0.0-500.0) ng/mL Sodium (140-148) mmol/L Potassium (3.6-5.2) mmol/L Chloride (100-108) mmol/L Carbon Dioxide (21-32) mmol/L Anion Gap (5.0-14.0) mmol/L BUN (7-18) mg/dL Creatinine (0.8-1.3) mg/dL Est Cr Clr Drug Dosing mL/min Estimated GFR (MDRD) (>60) Glucose (74-106) mg/dL Calcium (8.5-10.1) mg/dL Total Bilirubin (0.2-1.0) mg/dL AST (15-37) U/L ALT (12-78) U/L Alkaline Phosphatase (46-116) U/L C-Reactive Protein (0.0-0.3) mg/dL Total Protein (6.4-8.2) g/dL Albumin (3.4-5.0) g/dL Globulin (2.3-3.5) g/dL Albumin/Globulin Ratio (1.2-2.2) Urine Color Yellow (YELLOW) Urine Appearance Slightly cloudy A (CLEAR) Urine pH 5.5 (5.0-8.0) Ur Specific [place] 1.025 (1.008-1.030) Urine Protein 30 H (NEGATIVE) mg/dL Urine Glucose (UA) Negative (NEGATIVE) mg/dL Urine Ketones Negative (NEGATIVE) mg/dL Urine Occult Blood Small H (NEGATIVE) Urine Nitrite Negative (NEGATIVE) Urine Bilirubin Small H (NEGATIVE) Urine Urobilinogen 2.0 H (0.2-1.0) EU/dL Ur Leukocyte Esterase Negative (NEGATIVE) Urine RBC 0-5 (0-5) Urine WBC 0-5 (0-5) Ur Epithelial Cells Rare Amorphous Sediment Moderate Urine Bacteria Few Urine Mucus Not seen 08/08/21 Range/Units 04:35 WBC (4.5-11.0) K/uL RBC (4.30-5.90) M/uL Hgb (12.0-15.0) g/dL Hct (40.0-54.0) % MCV (80-98) fL MCH (27-31) pg MCHC (32-36) % Plt Count (150-400) K/uL Add Manual Diff Neutrophils % (Manual) (36-66) % Band Neutrophils % (5-11) % Lymphocytes % (Manual) (24-44) % Monocytes % (Manual) (2-6) % D-Dimer, Quantitative (0.0-500.0) ng/mL Sodium 141 (140-148) mmol/L Potassium 3.4 L (3.6-5.2) mmol/L Chloride 100 (100-108) mmol/L Carbon Dioxide 29 (21-32) mmol/L Anion Gap 15.4 H (5.0-14.0) mmol/L BUN 31 H (7-18) mg/dL Creatinine 1.3 (0.8-1.3) mg/dL Est Cr Clr Drug Dosing 76.15 mL/min Estimated GFR (MDRD) 56 L (>60) Glucose 152 H (74-106) mg/dL Calcium 8.2 L (8.5-10.1) mg/dL Total Bilirubin 1.4 H (0.2-1.0) mg/dL AST 88 H (15-37) U/L ALT 85 H (12-78) U/L Alkaline Phosphatase 161 H (46-116) U/L C-Reactive Protein 23.30 H (0.0-0.3) mg/dL Total Protein 6.7 (6.4-8.2) g/dL Albumin 2.2 L (3.4-5.0) g/dL Globulin 4.5 H (2.3-3.5) g/dL Albumin/Globulin Ratio 0.5 L (1.2-2.2) Urine Color (YELLOW) Urine Appearance (CLEAR) Urine pH (5.0-8.0) Ur Specific [place] (1.008-1.030) Urine Protein (NEGATIVE) mg/dL Urine Glucose (UA) (NEGATIVE) mg/dL Urine Ketones (NEGATIVE) mg/dL Urine Occult Blood (NEGATIVE) Urine Nitrite (NEGATIVE) Urine Bilirubin (NEGATIVE) Urine Urobilinogen (0.2-1.0) EU/dL Ur Leukocyte Esterase (NEGATIVE) Urine RBC (0-5) Urine WBC (0-5) Ur Epithelial Cells Amorphous Sediment Urine Bacteria Urine Mucus Result Diagrams: 08/08/21 04:35 08/08/21 04:35 Silviano Results Last 24 hrs: Microbiology 08/07/21 11:10 Aerobic Blood Culture - Preliminary Blood - Arterial Line - Direct Stick NO GROWTH AFTER 1 DAY Anaerobic Blood Culture - Preliminary NO GROWTH AFTER 1 DAY 08/07/21 11:00 Aerobic Blood Culture - Preliminary Blood - Arm, Right NO GROWTH AFTER 1 DAY Anaerobic Blood Culture - Preliminary NO GROWTH AFTER 1 DAY Sepsis Event Note - Evaluation Sepsis Screening Result: Severe Sepsis Risk - Focused Exam Vital Signs: Vital Signs Temp Pulse Resp BP Pulse Ox 08/08/21 14:28 96.6 F L 79 18 121/72 92 L 08/08/21 11:13 95.9 F L 86 28 H 111/51 L 91 L 08/08/21 08:26 97.2 F 70 18 119/72 90 L 08/08/21 07:20 88 L - Problem List Review Problem List Initiated/Reviewed/Updated: Yes - My Orders Last 24 Hours: My Active Orders 08/07/21 14:16 Acetaminophen [TylenoL] 650 mg PO Q4H PRN Albuterol [Ventolin HFA] 0 gm INH ASDIRECTED PRN Ondansetron [Zofran] 4 mg IV Q4H PRN Sodium Chloride 0.9% [Saline Flush] 10 ml FLUSH ASDIRECTED PRN polyethylene glycoL 3350 [MiraLAX] 17 gm PO DAILY PRN 08/07/21 14:16 Patient Status [ADT] Routine Height and Weight [RC] DAILY Intake and Output [RC] QSHIFT Notify Provider Vital Signs [RC] ASDIRECTED Oxygen Therapy [RC] PRN Pulse Oximetry [RC] CONTINUOUS RT Aerosol Therapy [RC] ASDIRECTED RT Post Treatment Assessment [RC] Click to Edit Up to Chair [RC] QID VTE/DVT Education [RC] Per Unit Routine Vital Signs [RC] Q4H Saline Lock Insert [OM.PC] Routine 08/07/21 16:00 Enoxaparin [Lovenox] 40 mg SUBCUT Q24H 08/07/21 21:00 Mometasone/Formoterol [Dulera 200-5 MCG] 2 puff IH BIDRT 08/08/21 05:04 Dimethicone/Zinc Oxide [Rash Relief-Zinc Oxide [place]] 1 gm TOP ASDIRECTED PRN 08/08/21 09:00 dexAMETHasone [Decadron] 6 mg IVPUSH Q24H 08/08/21 10:00 cefTRIAXone [Rocephin] 1 gm Sodium Chloride 0.9% [Normal Saline] 50 ml IV Q24H 08/08/21 13:00 Remdesivir 100 mg Sodium Chloride 0.9% [Normal Saline] 100 ml IV Q24H 08/08/21 17:00 Potassium Chloride [Klor-Con M20] 40 meq PO ONETIME ONE - Plan Plan:: ASSESSMENT AND PLAN COVID-19 INFECTION-with bilateral pneumonia and acute on chronic hypoxic respiratory failure. He is continued to require high flow oxygen and has had episodes of intermittent desaturation. -Trial of noninvasive positive pressure ventilation -Continue antibiotic therapy with doxycycline and ceftriaxone, today is day 1 of 7 -Limit IV fluids -Prone positioning if possible -Remdesivir 200 mg IV today, then 100 mg daily for an additional 4 days, today is day 2 of 5 -Start dexamethasone 6 mg IV daily, today is day 1 -Baricitinib 2 mg p.o. daily, reduce dose because of kidney function, today is day 2 of 14 ACUTE HYPOXIC RESPIRATORY FAILURE-secondary to COVID-19 infection and underlying COPD -Management as above COPD-no evidence of acute exacerbation -Continue outpatient medications CHRONIC KIDNEY DISEASE-renal function has improved significantly from admission -Closely monitor urine output and renal function BLADDER OUTLET OBSTRUCTION-Paulino catheter placed last night -Flomax 0.4 mg p.o. daily -Trial of catheter removal in a few days MAINTENANCE ISSUES -DVT prophylaxis; Lovenox 40 mg subcu daily -GI prophylaxis; not indicated -Paulino catheter; not indicated -Nutrition; regular diet -Nicotine dependence; not required CODE STATUS-FULL CODE ADMISSION STATUS-patient will be admitted to inpatient status, expect at least a 2 night hospital stay for evaluation and management of problems as outlined above. At the time of this admission I do not reasonably expected evaluation and management of this problem will require more than a 96 hour hospital stay. DISPOSITION-anticipate discharge to home after the hospital stay. PRIMARY CARE PROVIDER-patient does not currently have a primary care provider
[2021-08-08] MEDS: Enoxaparin 40 MG/0.4 ML Syringe SUBCUT SCH (15:18)
[2021-08-08] MEDS: Benzonatate 100 MG Cap PO PRN (20:01)
[2021-08-08] MEDS: Tamsulosin 0.4 MG Cap.ER PO SCH (20:05)
[2021-08-08] MEDS ORDERED: Acetaminophen 325 MG Tab ONE (20:15)
[2021-08-08] MEDS ORDERED: Azithromycin 250 MG Tab PO SCH (21:00)
[2021-08-09] MEDS: LORazepam 0.5 MG Tab PO PRN ×2 (00:54→08:11)
[2021-08-09] MEDS ORDERED: LORazepam 2 MG/ML SDV IVPUSH ONE (04:46)
[2021-08-09] MEDS ORDERED: LORazepam 2 MG/ML SDV ONE (04:50)
[2021-08-09] MEDS ORDERED: Morphine 2 MG/ML SYRINGE ONE (06:01)
[2021-08-09] MEDS: Morphine 2 MG/ML SYRINGE IVPUSH PRN ×2 (06:08→08:11)
[2021-08-09] MEDS: Formoterol/Mometasone 200-5 MCG 8.8 GM Inhaler IH SCH ×2 (07:12→21:13)
[2021-08-09] MEDS ORDERED: Furosemide 20 MG/2 ML VIAL IVPUSH ONE (09:00)
[2021-08-09] MEDS: Dexamethasone 4 MG/ML SDV IVPUSH SCH (09:10)
[2021-08-09] MEDS ORDERED: propofoL 100 ML ONE (09:35)
[2021-08-09] MEDS ORDERED: Succinylcholine 200 MG/10 ML MDV ONE (10:00)
[2021-08-09] MEDS ORDERED: Propofol 200 MG/20 ML SDV ONE (10:00)
[2021-08-09] MEDS: Heparin Sodium 5,000 UNITS in Sodium Chloride 0.9% 500 ML IV SCH (10:30)
[2021-08-09] MEDS: Doxycycline 100 MG in Sodium Chloride 0.9% 100 ML IV SCH ×2 (10:43→21:34)
[2021-08-09] MEDS: propofoL 100 ML IV SCH ×4 (10:48→16:57)
--- NOTE | 2021-08-09 11:49 | CR ---
CHEST: Portable chest 08/09/2021 at 10:08 AM CLINICAL HISTORY:ET tube placement COMPARISON:08/07/2021 FINDINGS: Endotracheal tube is been placed. The tube is approximately 8 cm from the [place]. Patient has diffuse bilateral pulmonary infiltrates. Heart is enlarged. Impression: Endotracheal intubation as above Moderate diffuse bilateral pneumonic infiltrate.
--- NOTE | 2021-08-09 11:51 | CR ---
CHEST: Portable 07/09/2021 and 10:38 AM CLINICAL HISTORY:Endotracheal tube position COMPARISON:Earlier same day FINDINGS: Endotracheal tube is been advanced. It is currently a proximally 6 cm from the [place]. Diffuse bilateral pulmonary infiltrates persist. There is improvement in aeration. Impression: Endotracheal tube as above Diffuse bilateral pulmonary infiltrates persist
[2021-08-09] MEDS: cefTRIAXone 1 GM in Sodium Chloride 0.9% 50 ML IV SCH (12:11)
[2021-08-09] MEDS: Pantoprazole 40 MG Vial IVPUSH SCH (12:13)
--- NOTE | 2021-08-09 12:33 | ANES ---
DATE OF SERVICE: 08/09/2021 Mr. Loaiza is a 61-year-old patient whom I was called to evaluate for an intubation due to respiratory distress. He was up on the second floor. I discussed this with the patient, and he agreed. He also agreed to have an arterial line placed. I gave him 200 mg of propofol as well as 200 mg of succinylcholine, and I intubated him with a 3.0 MAC and an 8.0 endotracheal tube. There was positive end-tidal CO2. Bilateral breath sounds were equal and positive. This was secured by the respiratory therapy staff. He was then transferred down to the ICU as to where I put a left naris 18-Persian nasogastric tube. This was confirmed in the stomach. I then put a 20-gauge Arrow left radial catheter in arterially. This went in very nicely. It was sutured with 2-0 Prolene, and Tegaderm and tape were applied. It had a good waveform and good blood return. Bj Tristan CRNA /[id number]
--- NOTE | 2021-08-09 15:37 | PCM.PN ---
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 He is on maximal support as far as oxygen supplementation and respiratory rate has been into the 30s and even the low 40s with low saturations. I discussed this with the patient and he does want to proceed with intubation and mechanical ventilation. He was intubated by the Tristan of the anesthesia service and has been transferred to the intensive care unit and started on mechanical ventilation. - Review of Systems General: Reports: Weakness, Fatigue. Denies: Fever, Chills Pulmonary: Reports: Shortness of Breath, Cough, Sputum. Denies: Pleuritic Chest Pain, Hemoptysis, Wheezing Cardiovascular: Reports: Dyspnea on Exertion. Denies: Chest Pain, Palpitations, Orthopnea, PND, Edema, Lightheadedness Gastrointestinal: Reports: No Symptoms Genitourinary: Reports: No Symptoms - Patient Data Vitals - Most Recent: Last Vital Signs Temp 96.6 F L 08/09/21 15:00 Pulse 119 H 08/09/21 15:00 Resp 29 H 08/09/21 15:00 BP 112/71 08/09/21 15:00 Pulse Ox 90 L 08/09/21 15:00 Weight - Most Recent: 323 lb 6.69 oz I&O - Last 24 Hours: Intake & Output 08/09/21 08/09/21 08/09/21 06:59 14:59 22:59 Intake Total 300 450 Output Total 750 400 Balance -450 50 Lab Results Last 24 Hours: Laboratory Results - last 24 hr 08/09/21 08/09/21 08/09/21 Range/Units 08:12 08:25 08:25 WBC 22.2 H (4.5-11.0) K/uL RBC 5.16 (4.30-5.90) M/uL Hgb 14.8 (12.0-15.0) g/dL Hct 43.9 (40.0-54.0) % MCV 85 (80-98) fL MCH 29 (27-31) pg MCHC 34 (32-36) % Plt Count 287 (150-400) K/uL Add Manual Diff Yes Neutrophils % (Manual) 93 H (36-66) % Lymphocytes % (Manual) 5 L (24-44) % Monocytes % (Manual) 2 (2-6) % Puncture Site Rt radial ABG pH 7.444 (7.350-7.450) ABG pCO2 43.9 H (35.0-42.0) mmHg ABG pO2 44.8 L* (75.0-100.0) mmHg ABG HCO3 29.7 H (22.0-26.0) mmol/L ABG Total CO2 25.7 (23.0-27.0) mmol/L ABG O2 Saturation 80.8 L (95.0-98.0) % ABG O2 Content 16.6 (15.0-23.0) %vol ABG Base Excess 5.3 mm/L ABG Hemoglobin 14.9 (13.5-18.0) g/dL ABG Oxyhemoglobin 79.4 % ABG Carboxyhemoglobin 1.1 (0.0-1.6) % ABG Methemoglobin 0.6 % Daquan Test Passed O2 Delivery Device Oxygen Flow Rate L Sodium 146 (140-148) mmol/L Potassium 3.8 (3.6-5.2) mmol/L Chloride 106 (100-108) mmol/L Carbon Dioxide 28 (21-32) mmol/L Anion Gap 11.7 (5.0-14.0) mmol/L BUN 26 H (7-18) mg/dL Creatinine 1.1 (0.8-1.3) mg/dL Est Cr Clr Drug Dosing 90.00 mL/min Estimated GFR (MDRD) > 60 (>60) Glucose 109 H (74-106) mg/dL Calcium 7.7 L (8.5-10.1) mg/dL Total Bilirubin 1.4 H (0.2-1.0) mg/dL AST 73 H (15-37) U/L ALT 73 (12-78) U/L Alkaline Phosphatase 179 H (46-116) U/L Troponin I (0.000-0.056) ng/mL Total Protein 6.6 (6.4-8.2) g/dL Albumin 2.2 L (3.4-5.0) g/dL Globulin 4.4 H (2.3-3.5) g/dL Albumin/Globulin Ratio 0.5 L (1.2-2.2) 08/09/21 08/09/21 08/09/21 Range/Units 08:25 11:03 13:15 WBC (4.5-11.0) K/uL RBC (4.30-5.90) M/uL Hgb (12.0-15.0) g/dL Hct (40.0-54.0) % MCV (80-98) fL MCH (27-31) pg MCHC (32-36) % Plt Count (150-400) K/uL Add Manual Diff Neutrophils % (Manual) (36-66) % Lymphocytes % (Manual) (24-44) % Monocytes % (Manual) (2-6) % Puncture Site A-line A-line ABG pH 7.292 L 7.262 L (7.350-7.450) ABG pCO2 66.1 H 71.0 H* (35.0-42.0) mmHg ABG pO2 72.0 L 82.9 (75.0-100.0) mmHg ABG HCO3 31.0 H 31.0 H (22.0-26.0) mmol/L ABG Total CO2 27.9 H 28.0 H (23.0-27.0) mmol/L ABG O2 Saturation 91.5 L 93.9 L (95.0-98.0) % ABG O2 Content 18.4 19.2 (15.0-23.0) %vol ABG Base Excess 2.8 1.9 mm/L ABG Hemoglobin 14.5 14.7 (13.5-18.0) g/dL ABG Oxyhemoglobin 90.2 92.6 % ABG Carboxyhemoglobin 0.5 0.5 (0.0-1.6) % ABG Methemoglobin 0.9 0.9 % Daquan Test A-line A-line O2 Delivery Device Ventilator Oxygen Flow Rate L Sodium (140-148) mmol/L Potassium (3.6-5.2) mmol/L Chloride (100-108) mmol/L Carbon Dioxide (21-32) mmol/L Anion Gap (5.0-14.0) mmol/L BUN (7-18) mg/dL Creatinine (0.8-1.3) mg/dL Est Cr Clr Drug Dosing mL/min Estimated GFR (MDRD) (>60) Glucose (74-106) mg/dL Calcium (8.5-10.1) mg/dL Total Bilirubin (0.2-1.0) mg/dL AST (15-37) U/L ALT (12-78) U/L Alkaline Phosphatase (46-116) U/L Troponin I 0.017 (0.000-0.056) ng/mL Total Protein (6.4-8.2) g/dL Albumin (3.4-5.0) g/dL Globulin (2.3-3.5) g/dL Albumin/Globulin Ratio (1.2-2.2) Silviano Results Last 24 Hours: Microbiology 08/07/21 11:10 Aerobic Blood Culture - Preliminary Blood - Arterial Line - Direct Stick NO GROWTH AFTER 2 DAYS Anaerobic Blood Culture - Preliminary NO GROWTH AFTER 2 DAYS 08/07/21 11:00 Aerobic Blood Culture - Preliminary Blood - Arm, Right NO GROWTH AFTER 2 DAYS Anaerobic Blood Culture - Preliminary NO GROWTH AFTER 2 DAYS Med Orders - Current: Current Medications Acetaminophen (Acetaminophen 325 Mg Tab) 650 mg PO Q4H PRN PRN Reason: Pain (Mild 1-3)/fever Last Admin: 08/08/21 20:01 Dose: 325 mg Documented by: Albuterol (Albuterol 8 Gm Inhaler) 0 gm INH ASDIRECTED PRN PRN Reason: Shortness of Breath Last Admin: 08/09/21 05:53 Dose: 1 puff Documented by: Baricitinib (Baricitinib 2 Mg Tab) 4 mg PO DAILY [facility] Stop: 08/20/21 09:01 Last Admin: 08/09/21 12:13 Dose: 4 mg Documented by: Benzonatate (Benzonatate 100 Mg Cap) 100 mg PO Q6H PRN PRN Reason: Cough Last Admin: 08/08/21 20:01 Dose: 100 mg Documented by: Dexamethasone (Dexamethasone 4 Mg/Ml Sdv) 6 mg IVPUSH Q24H [facility] Last Admin: 08/09/21 09:10 Dose: 6 mg Documented by: Dimethicone/Zinc Oxide (Dimethicone 20%/Zinc Oxide 25% 56 Gm [facility] [place] Bottle) 1 gm TOP ASDIRECTED PRN PRN Reason: groin Enoxaparin Sodium (Enoxaparin 40 Mg/0.4 Ml Syringe) 40 mg SUBCUT Q24H [facility] Last Admin: 08/08/21 15:18 Dose: 40 mg Documented by: Doxycycline Hyclate 100 mg/ (Sodium Chloride) 100 mls @ 100 mls/hr IV Q12H [facility] Last Admin: 08/09/21 10:43 Dose: 100 mls/hr Documented by: Ceftriaxone Sodium 1 gm/ (Sodium Chloride) 50 mls @ 100 mls/hr IV Q24H [facility] Last Admin: 08/09/21 12:11 Dose: 100 mls/hr Documented by: Heparin Sodium (Porcine) 5,000 (units/ Sodium Chloride) 501 mls @ 5 mls/hr IV Q72H [facility] Last Admin: 08/09/21 10:30 Dose: 5 mls/hr Documented by: Propofol (Diprivan 100 Ml) 100 mls @ 4.042 mls/hr IV TITRATE [facility]; Protocol Last Admin: 08/09/21 13:53 Dose: 40 mcg/kg/min, 32.332 mls/hr Documented by: Lorazepam (Lorazepam 0.5 Mg Tab) 0.5 mg PO Q4H PRN PRN Reason: Anxiety Last Admin: 08/09/21 08:11 Dose: 0.5 mg Documented by: Mometasone Furoate/Formoterol Fumar (Formoterol/Mometasone 200-5 Mcg 8.8 Gm Inhaler) 2 puff IH BIDRT [facility] Last Admin: 08/09/21 07:12 Dose: 2 puff Documented by: Morphine Sulfate (Morphine 2 Mg/Ml Syringe) 2 mg IVPUSH Q2H PRN PRN Reason: AIR HUNGER Last Admin: 08/09/21 08:11 Dose: 2 mg Documented by: Ondansetron HCl (Ondansetron 4 Mg/2 Ml Sdv) 4 mg IV Q4H PRN PRN Reason: Nausea/Vomiting Pantoprazole Sodium (Pantoprazole 40 Mg Vial) 40 mg IVPUSH DAILY [facility] Last Admin: 08/09/21 12:13 Dose: 40 mg Documented by: Polyethylene Glycol (Polyethylene Glycol 3350 Powder 17 Gm Packet) 17 gm PO HEBERT LY PRN PRN Reason: Constipation Sodium Chloride (Sodium Chloride 0.9% 10 Ml Syringe) 10 ml FLUSH ASDIRECTED PRN PRN Reason: Keep Vein Open Tamsulosin HCl (Tamsulosin 0.4 Mg Cap.Er) 0.4 mg PO BEDTIME [facility] Last Admin: 08/08/21 20:05 Dose: 0.4 mg Documented by: Discontinued Medications Acetaminophen (Acetaminophen 325 Mg Tab) Confirm Administered Dose 325 mg .ROUTE .STK-MED ONE Stop: 08/08/21 20:16 Last Admin: 08/08/21 20:31 Dose: 325 mg Documented by: Azithromycin (Azithromycin 250 Mg Tab) 250 mg PO DAILY [facility] Last Admin: 08/08/21 00:02 Dose: 500 mg Documented by: Azithromycin (Azithromycin 250 Mg Tab) 250 mg PO BEDTIME [facility] Stop: 08/11/21 21:01 Baricitinib (Baricitinib 2 Mg Tab) 2 mg PO DAILY [facility] Stop: 08/20/21 09:01 Last Admin: 08/09/21 10:50 Dose: Not Given Documented by: Furosemide (Furosemide 20 Mg/2 Ml Vial) 20 mg IVPUSH NOW ONE Stop: 08/09/21 09:01 Last Admin: 08/09/21 09:14 Dose: 20 mg Documented by: Remdesivir 200 mg/ Sodium (Chloride) 250 mls @ 250 mls/hr IV ONETIME ONE Stop: 08/07/21 13:59 Last Admin: 08/07/21 13:09 Dose: 250 mls/hr Documented by: Remdesivir 100 mg/ Sodium (Chloride) 100 mls @ 100 mls/hr IV Q24H [facility] Stop: 08/11/21 13:59 Last Admin: 08/08/21 15:17 Dose: 100 mls/hr Documented by: Doxycycline Hyclate 100 mg/ (Sodium Chloride) 100 mls @ 100 mls/hr IV NOW ONE Stop: 08/08/21 00:59 Last Admin: 08/08/21 00:02 Dose: 100 mls/hr Documented by: Propofol (Diprivan 100 Ml) Confirm Administered Dose 100 mls @ as directed .ROUTE .STK-MED ONE Stop: 08/09/21 09:36 Last Admin: 08/09/21 10:49 Dose: Not Given Documented by: Lorazepam (Lorazepam 2 Mg/Ml Sdv) 1 mg IVPUSH ONETIME ONE Stop: 08/09/21 04:47 Last Admin: 08/09/21 04:52 Dose: 1 mg Documented by: Lorazepam (Lorazepam 2 Mg/Ml Sdv) Confirm Administered Dose 2 mg .ROUTE .STK-MED ONE Stop: 08/09/21 04:51 Last Admin: 08/09/21 05:27 Dose: Not Given Documented by: Methylprednisolone Sodium Succinate (Methylprednisolone Sodium Succinate 125 Mg/2 Ml Sdv) 125 mg IVPUSH ONETIME ONE Stop: 08/07/21 11:07 Last Admin: 08/07/21 11:09 Dose: 125 mg Documented by: Morphine Sulfate (Morphine 2 Mg/Ml Syringe) Confirm Administered Dose 2 mg .ROUTE .STK-MED ONE Stop: 08/09/21 06:02 Last Admin: 08/09/21 06:21 Dose: Not Given Documented by: Potassium Chloride (Potassium Chloride 20 Meq Tab.Er) 40 meq PO ONETIME ONE Stop: 08/08/21 09:31 Last Admin: 08/08/21 09:58 Dose: 40 meq Documented by: Potassium Chloride (Potassium Chloride 20 Meq Tab.Er) 40 meq PO ONETIME ONE Stop: 08/08/21 17:01 Last Admin: 08/08/21 17:08 Dose: 40 meq Documented by: - Exam Quality Assessment: Supplemental Oxygen, Urine Catheter, DVT Prophylaxis Urinary Catheter Total Time: 1Days 4Hours General: Alert, Oriented, Cooperative, Severe Distress Lungs: Decreased Breath Sounds, Crackles, Rhonchi. No: Rales, Wheezing Cardiovascular: Regular Rhythm, No Murmurs, Tachycardia GI/Abdominal Exam: Soft, Non-Tender, No Organomegaly, No Distention Extremities: Non-Tender, No Pedal Edema - Patient Data Lab Results Last 24 hrs: Laboratory Results - last 24 hr 08/09/21 08/09/21 08/09/21 Range/Units 08:12 08:25 08:25 WBC 22.2 H (4.5-11.0) K/uL RBC 5.16 (4.30-5.90) M/uL Hgb 14.8 (12.0-15.0) g/dL Hct 43.9 (40.0-54.0) % MCV 85 (80-98) fL MCH 29 (27-31) pg MCHC 34 (32-36) % Plt Count 287 (150-400) K/uL Add Manual Diff Yes Neutrophils % (Manual) 93 H (36-66) % Lymphocytes % (Manual) 5 L (24-44) % Monocytes % (Manual) 2 (2-6) % Puncture Site Rt radial ABG pH 7.444 (7.350-7.450) ABG pCO2 43.9 H (35.0-42.0) mmHg ABG pO2 44.8 L* (75.0-100.0) mmHg ABG HCO3 29.7 H (22.0-26.0) mmol/L ABG Total CO2 25.7 (23.0-27.0) mmol/L ABG O2 Saturation 80.8 L (95.0-98.0) % ABG O2 Content 16.6 (15.0-23.0) %vol ABG Base Excess 5.3 mm/L ABG Hemoglobin 14.9 (13.5-18.0) g/dL ABG Oxyhemoglobin 79.4 % ABG Carboxyhemoglobin 1.1 (0.0-1.6) % ABG Methemoglobin 0.6 % Daquan Test Passed O2 Delivery Device Oxygen Flow Rate L Sodium 146 (140-148) mmol/L Potassium 3.8 (3.6-5.2) mmol/L Chloride 106 (100-108) mmol/L Carbon Dioxide 28 (21-32) mmol/L Anion Gap 11.7 (5.0-14.0) mmol/L BUN 26 H (7-18) mg/dL Creatinine 1.1 (0.8-1.3) mg/dL Est Cr Clr Drug Dosing 90.00 mL/min Estimated GFR (MDRD) > 60 (>60) Glucose 109 H (74-106) mg/dL Calcium 7.7 L (8.5-10.1) mg/dL Total Bilirubin 1.4 H (0.2-1.0) mg/dL AST 73 H (15-37) U/L ALT 73 (12-78) U/L Alkaline Phosphatase 179 H (46-116) U/L Troponin I (0.000-0.056) ng/mL Total Protein 6.6 (6.4-8.2) g/dL Albumin 2.2 L (3.4-5.0) g/dL Globulin 4.4 H (2.3-3.5) g/dL Albumin/Globulin Ratio 0.5 L (1.2-2.2) 08/09/21 08/09/21 08/09/21 Range/Units 08:25 11:03 13:15 WBC (4.5-11.0) K/uL RBC (4.30-5.90) M/uL Hgb (12.0-15.0) g/dL Hct (40.0-54.0) % MCV (80-98) fL MCH (27-31) pg MCHC (32-36) % Plt Count (150-400) K/uL Add Manual Diff Neutrophils % (Manual) (36-66) % Lymphocytes % (Manual) (24-44) % Monocytes % (Manual) (2-6) % Puncture Site A-line A-line ABG pH 7.292 L 7.262 L (7.350-7.450) ABG pCO2 66.1 H 71.0 H* (35.0-42.0) mmHg ABG pO2 72.0 L 82.9 (75.0-100.0) mmHg ABG HCO3 31.0 H 31.0 H (22.0-26.0) mmol/L ABG Total CO2 27.9 H 28.0 H (23.0-27.0) mmol/L ABG O2 Saturation 91.5 L 93.9 L (95.0-98.0) % ABG O2 Content 18.4 19.2 (15.0-23.0) %vol ABG Base Excess 2.8 1.9 mm/L ABG Hemoglobin 14.5 14.7 (13.5-18.0) g/dL ABG Oxyhemoglobin 90.2 92.6 % ABG Carboxyhemoglobin 0.5 0.5 (0.0-1.6) % ABG Methemoglobin 0.9 0.9 % Da[place]an Test A-line A-line O2 Delivery Device Ventilator Oxygen Flow Rate L Sodium (140-148) mmol/L Potassium (3.6-5.2) mmol/L Chloride (100-108) mmol/L Carbon Dioxide (21-32) mmol/L Anion Gap (5.0-14.0) mmol/L BUN (7-18) mg/dL Creatinine (0.8-1.3) mg/dL Est Cr Clr Drug Dosing mL/min Estimated GFR (MDRD) (>60) Glucose (74-106) mg/dL Calcium (8.5-10.1) mg/dL Total Bilirubin (0.2-1.0) mg/dL AST (15-37) U/L ALT (12-78) U/L Alkaline Phosphatase (46-116) U/L Troponin I 0.017 (0.000-0.056) ng/mL Total Protein (6.4-8.2) g/dL Albumin (3.4-5.0) g/dL Globulin (2.3-3.5) g/dL Albumin/Globulin Ratio (1.2-2.2) Result Diagrams: 08/10/21 05:45 08/10/21 05:45 Silviano Results Last 24 hrs: Microbiology 08/07/21 11:10 Aerobic Blood Culture - Preliminary Blood - Arterial Line - Direct Stick NO GROWTH AFTER 2 DAYS Anaerobic Blood Culture - Preliminary NO GROWTH AFTER 2 DAYS 08/07/21 11:00 Aerobic Blood Culture - Preliminary Blood - Arm, Right NO GROWTH AFTER 2 DAYS Anaerobic Blood Culture - Preliminary NO GROWTH AFTER 2 DAYS Sepsis Event Note - Evaluation Sepsis Screening Result: No Definite Risk - Focused Exam Vital Signs: Vital Signs Temp Pulse Resp BP BP Pulse Ox 08/09/21 15:00 96.6 F L 119 H 29 H 112/71 90 L 08/09/21 13:55 96.6 F L 115 H 28 H 105/62 94 L 08/09/21 13:00 96.8 F L 113 H 28 H 98/64 93 L 08/09/21 12:00 97.1 F 113 H 29 H 98/64 92 L 08/09/21 11:00 97.3 F 117 H 22 H 100/62 91 L 08/09/21 10:22 98.1 F 116 H 19 102/65 88 L 08/09/21 07:35 98.1 F 111 H 44 H 125/60 80 L 08/09/21 07:00 81 L 08/09/21 04:44 90 L - Problem List Review Problem List Initiated/Reviewed/Updated: Yes - My Orders Last 24 Hours: My Active Orders 08/08/21 21:00 Tamsulosin [Flomax] 0.4 mg PO BEDTIME 08/09/21 10:00 Heparin Sodium 5,000 units Sodium Chloride 0.9% [Normal Saline] 500 ml IV Q72H 08/09/21 10:36 RASS Sedation Scale [RC] ASDIRECTED Desired Level of Sedation (RASS) [AST] Click to Edit 08/09/21 10:45 propofoL [Diprivan 100 ML] 100 ml IV TITRATE 08/09/21 11:07 Mechanical Ventilation [RT Ventilator, Adult] [RC] ASDIRECTED 08/09/21 11:28 Cardiac Monitoring [RC] Q6H 08/09/21 11:30 Baricitinib [Olumiant] 4 mg PO DAILY Pantoprazole [ProTONIX IV] 40 mg IVPUSH DAILY 08/09/21 11:42 Nasogastric Orogastric Tube Insertion [OM.PC] Routine 08/09/21 11:49 Arterial Line Assessment [RC] Q6H Arterial Line Insertion [OM.PC] Routine Arterial Line Management [OM.PC] Routine 08/09/21 Lunch NPO Now [Nothing per Oral Now Diet] [DIET] 08/09/21 12:29 Nrsg Assess Restraint Init/Mon [Nrsg Assess Restraint Init/Mon] [RC] Q1H 08/09/21 12:41 Patient Status [ADT] Routine 08/09/21 14:21 RT End Tidal CO2 Monitoring [RC] ASDIRECTED 08/09/21 15:13 Communication Order [RC] BID 08/09/21 17:00 BASIC METABOLIC PANEL,BMP [CHEM] Stat BLOOD GAS ARTERIAL [BG] Stat 08/10/21 05:00 Chest 1V Frontal [CR] DAILY BLOOD GAS ARTERIAL [BG] Timed CBC WITH AUTO DIFF [HEME] Timed COMPREHENSIVE METABOLIC PN,CMP [CHEM] Timed MAGNESIUM [CHEM] Timed 08/10/21 05:11 CRP [C-REACTIVE PROTEIN] [CHEM] AM D Dimer [D-DIMER QUANTITATIVE] [COAG] AM 08/11/21 05:00 Chest 1V Frontal [CR] DAILY 08/12/21 05:00 Chest 1V Frontal [CR] DAILY 08/13/21 05:00 Chest 1V Frontal [CR] DAILY 08/14/21 05:00 Chest 1V Frontal [CR] DAILY - Plan Plan:: ASSESSMENT AND PLAN COVID-19 INFECTION-with bilateral pneumonia and acute hypoxic respiratory failure. During the night and this morning has developed progressive respiratory failure despite maximal supplemental oxygen and use of BiPAP. Discussed this with the patient and he did want to proceed with intubation and mechanical ventilation. -Mechanical ventilation -Continue antibiotic therapy with doxycycline and ceftriaxone, today is day 2 of 7 -Limit IV fluids -Prone positioning -Discontinue Remdesivir -Dexamethasone 6 mg IV daily, today is day 2 -Baricitinib 4 mg p.o. daily, today is day 3 of 14 ACUTE HYPOXIC RESPIRATORY FAILURE-secondary to COVID-19 infection and underlying COPD. Started on mechanical ventilation, initially plateau pressures were elevated. Calculated ideal body weight is 90 kg. Placed on tidal volume of 4cc/kg, PEEP of 18, FiO2 of 100%, rate of 28. With a strategy of permissive hypercapnia. With this has achieved plateau pressure of less than 30 with adequate oxygenation. -Titrate FiO2 to 70% as soon as possible -CT scan of the chest angiogram when he has stabilized on current vent settings ARDS-secondary to COVID-19 infection -Management as above COPD-no evidence of acute exacerbation -Continue outpatient medications CHRONIC KIDNEY DISEASE-renal function improved from admission and stable from yesterday -Closely monitor urine output and renal function BLADDER OUTLET OBSTRUCTION-Paulino catheter -Flomax 0.4 mg p.o. daily MAINTENANCE ISSUES -DVT prophylaxis; Lovenox 40 mg subcu daily -GI prophylaxis; Protonix 40 mg IV daily -Paulino catheter; not indicated -Nutrition; n.p.o. -Nicotine dependence; not required CODE STATUS-FULL CODE ADMISSION STATUS-patient will be admitted to inpatient status, expect at least a 2 night hospital stay for evaluation and management of problems as outlined above. At the time of this admission I do not reasonably expected evaluation and management of this problem will require more than a 96 hour hospital stay. DISPOSITION-anticipate discharge to home after the hospital stay. PRIMARY CARE PROVIDER-patient does not currently have a primary care provider
[2021-08-09] MEDS: Enoxaparin 40 MG/0.4 ML Syringe SUBCUT SCH (16:51)
[2021-08-09] MEDS: Tamsulosin 0.4 MG Cap.ER PO SCH (21:13)
[2021-08-10] MEDS: propofoL 100 ML IV SCH ×8 (00:08→20:24)
[2021-08-10] MEDS: Formoterol/Mometasone 200-5 MCG 8.8 GM Inhaler IH SCH ×2 (07:58→21:06)
[2021-08-10] MEDS ORDERED: Furosemide 40 MG/4 ML VIAL IVPUSH ONE (08:16)
[2021-08-10] MEDS: Pantoprazole 40 MG Vial IVPUSH SCH (08:23)
[2021-08-10] MEDS: Dexamethasone 4 MG/ML SDV IVPUSH SCH (08:24)
[2021-08-10] MEDS: Doxycycline 100 MG in Sodium Chloride 0.9% 100 ML IV SCH ×2 (08:25→21:01)
[2021-08-10] MEDS ORDERED: Furosemide 20 MG/2 ML VIAL IVPUSH ONE (08:30)
[2021-08-10] MEDS ORDERED: Iopamidol 755 Mg/ML 100 ML Bottle IV ONE (09:14)
[2021-08-10] MEDS ORDERED: Sodium Chloride 0.9% 100 ML IV SCH (09:15)
--- NOTE | 2021-08-10 09:15 | CR ---
CHEST: Portable 08/10/2021 at 2:57 AM CLINICAL HISTORY:Intubation, infiltrates COMPARISON:08/09/2021 FINDINGS: Endotracheal tube is in the mid to upper trachea approximately 9 cm from the [place]ber[place]. Diffuse bilateral infiltrates persist without significant interval change. Impression: Endotracheal tube as above. Persistent diffuse bilateral pulmonary infiltrates
[2021-08-10] MEDS: Enoxaparin 150 MG/1 ML Syringe SUBCUT SCH ×2 (09:29→21:05)
[2021-08-10] MEDS: cefTRIAXone 1 GM in Sodium Chloride 0.9% 50 ML IV SCH (09:35)
--- NOTE | 2021-08-10 11:31 | CT ---
Ang Chest CLINICAL HISTORY: Hypoxia, covid, elevated d-dimer TECHNIQUE: Thin section axial contiguous tomographic sections were taken through the chest after bolus IV iodinated contrast administration. Coronal and sagittal images were reconstructed. Auto dosage reduction and iterative reconstruction techniques employed. FINDINGS: There is moderate motion artifact. Patient has significant diffuse bilateral pneumonic infiltrates with areas of consolidation as well as groundglass opacities. Patient has been intubated. Endotracheal tube has advanced since recent chest x-rays. It is now 1.5 cm from the [place]ber[place]. There is nonocclusive thrombus in the bifurcation of the right pulmonary artery. There are some smaller filling defects in the lower lobe branching arteries smaller clots in the upper lobes are not excluded. There are some filling defects in the lower lobe branching arteries on the left. Aortic arch is free of aneurysm or dissection. NG tube is in place. There is a 4 cm right renal cyst IMPRESSION: Bilateral nonocclusive or minimally occlusive pulmonary emboli Severe diffuse bilateral pulmonary infiltrates with areas of consolidation and groundglass opacity consistent with the patient's history of covid Endotracheal tube has advanced to 1.5 cm from the [place]ber[place]. ICU was notified of these findings by phone at the time of the dictation at 11:25 AM
--- NOTE | 2021-08-10 15:01 | PCM.PN ---
- General Info Date of Service: 08/10/21 Subjective Update: Mr. Loaiza has remained fairly stable with mechanical ventilation over the past 24 hours. He is now down to an FiO2 of 70% with adequate oxygenation. He has r emained hemodynamically stable and afebrile. CT scan of the chest was obtained today with contrast and does show evidence of bilateral nonobstructing pulmonary emboli. He is unable to provide meaningful information concerning symptoms or review of systems because of intubation and sedation. - Patient Data Vitals - Most Recent: Last Vital Signs Temp 97.3 F 08/10/21 13:00 Pulse 114 H 08/10/21 14:21 Resp 43 H 08/10/21 14:21 BP 97/66 08/10/21 14:21 Pulse Ox 92 L 08/10/21 14:21 Weight - Most Recent: 331 lb 12.731 oz I&O - Last 24 Hours: Intake & Output 08/09/21 08/10/21 08/10/21 22:59 06:59 14:59 Intake Total 260 715 150 Output Total 390 305 550 Balance -130 410 -400 Lab Results Last 24 Hours: Laboratory Results - last 24 hr 08/09/21 08/09/21 08/09/21 Range/Units 08:25 16:54 16:54 WBC (4.5-11.0) K/uL RBC (4.30-5.90) M/uL Hgb (12.0-15.0) g/dL Hct (40.0-54.0) % MCV (80-98) fL MCH (27-31) pg MCHC (32-36) % Plt Count (150-400) K/uL Add Manual Diff Neutrophils % (Manual) (36-66) % Lymphocytes % (Manual) (24-44) % Monocytes % (Manual) (2-6) % D-Dimer, Quantitative (0.0-500.0) ng/mL Puncture Site Line ABG pH 7.252 L (7.350-7.450) ABG pCO2 69.7 H* (35.0-42.0) mmHg ABG pO2 111.0 H (75.0-100.0) mmHg ABG HCO3 29.7 H (22.0-26.0) mmol/L ABG Total CO2 26.8 (23.0-27.0) mmol/L ABG O2 Saturation 97.2 (95.0-98.0) % ABG O2 Content 20.2 (15.0-23.0) %vol ABG Base Excess 0.6 mm/L ABG Hemoglobin 15.0 (13.5-18.0) g/dL ABG Oxyhemoglobin 95.3 % ABG Carboxyhemoglobin 1.2 (0.0-1.6) % ABG Methemoglobin 0.8 % [facility] Test TNP O2 Delivery Device Ventilator Oxygen Flow Rate L Sodium 147 (140-148) mmol/L Potassium 4.9 (3.6-5.2) mmol/L Chloride 106 (100-108) mmol/L Carbon Dioxide 30 (21-32) mmol/L Anion Gap 11.0 (5.0-14.0) mmol/L BUN 30 H (7-18) mg/dL Creatinine 1.3 (0.8-1.3) mg/dL Est Cr Clr Drug Dosing 76.15 mL/min Estimated GFR (MDRD) 56 L (>60) Glucose 154 H (74-106) mg/dL Calcium 7.6 L (8.5-10.1) mg/dL Magnesium (1.8-2.4) mg/dL Total Bilirubin (0.2-1.0) mg/dL AST (15-37) U/L ALT (12-78) U/L Alkaline Phosphatase (46-116) U/L Troponin I 0.017 (0.000-0.056) ng/mL C-Reactive Protein (0.0-0.3) mg/dL Total Protein (6.4-8.2) g/dL Albumin (3.4-5.0) g/dL Globulin (2.3-3.5) g/dL Albumin/Globulin Ratio (1.2-2.2) 08/10/21 08/10/21 08/10/21 Range/Units 05:45 05:45 05:45 WBC 17.2 H (4.5-11.0) K/uL RBC 5.25 (4.30-5.90) M/uL Hgb 15.0 (12.0-15.0) g/dL Hct 47.8 (40.0-54.0) % MCV 91 (80-98) fL MCH 29 (27-31) pg MCHC 31 L (32-36) % Plt Count 207 (150-400) K/uL Add Manual Diff Yes Neutrophils % (Manual) 92 H (36-66) % Lymphocytes % (Manual) 7 L (24-44) % Monocytes % (Manual) 1 L (2-6) % D-Dimer, Quantitative (0.0-500.0) ng/mL Puncture Site Lt brachial ABG pH 7.307 L (7.350-7.450) ABG pCO2 60.7 H (35.0-42.0) mmHg ABG pO2 76.1 (75.0-100.0) mmHg ABG HCO3 29.5 H (22.0-26.0) mmol/L ABG Total CO2 26.1 (23.0-27.0) mmol/L ABG O2 Saturation 94.9 L (95.0-98.0) % ABG O2 Content 19.9 (15.0-23.0) %vol ABG Base Excess 1.9 mm/L ABG Hemoglobin 15.3 (13.5-18.0) g/dL ABG Oxyhemoglobin 92.5 % ABG Carboxyhemoglobin 1.7 H (0.0-1.6) % ABG Methemoglobin 0.8 % [facility] Test A-line O2 Delivery Device Ventilator Oxygen Flow Rate L Sodium 148 (140-148) mmol/L Potassium 4.9 (3.6-5.2) mmol/L Chloride 108 (100-108) mmol/L Carbon Dioxide 30 (21-32) mmol/L Anion Gap 9.8 (5.0-14.0) mmol/L BUN 32 H (7-18) mg/dL Creatinine 1.2 (0.8-1.3) mg/dL Est Cr Clr Drug Dosing 82.50 mL/min Estimated GFR (MDRD) > 60 (>60) Glucose 127 H (74-106) mg/dL Calcium 7.8 L (8.5-10.1) mg/dL Magnesium 3.5 H (1.8-2.4) mg/dL Total Bilirubin 1.8 H (0.2-1.0) mg/dL AST 58 H (15-37) U/L ALT 66 (12-78) U/L Alkaline Phosphatase 162 H (46-116) U/L Troponin I (0.000-0.056) ng/mL C-Reactive Protein (0.0-0.3) mg/dL Total Protein 6.6 (6.4-8.2) g/dL Albumin 2.1 L (3.4-5.0) g/dL Globulin 4.5 H (2.3-3.5) g/dL Albumin/Globulin Ratio 0.5 L (1.2-2.2) 08/10/21 08/10/21 08/10/21 Range/Units 05:45 05:45 13:27 WBC (4.5-11.0) K/uL RBC (4.30-5.90) M/uL Hgb (12.0-15.0) g/dL Hct (40.0-54.0) % MCV (80-98) fL MCH (27-31) pg MCHC (32-36) % Plt Count (150-400) K/uL Add Manual Diff Neutrophils % (Manual) (36-66) % Lymphocytes % (Manual) (24-44) % Monocytes % (Manual) (2-6) % D-Dimer, Quantitative 86905.00 H (0.0-500.0) ng/mL Puncture Site Lt brachial ABG pH 7.129 L* (7.350-7.450) ABG pCO2 98.3 H* (35.0-42.0) mmHg ABG pO2 77.5 (75.0-100.0) mmHg ABG HCO3 31.2 H (22.0-26.0) mmol/L ABG Total CO2 29.2 H (23.0-27.0) mmol/L ABG O2 Saturation 92.2 L (95.0-98.0) % ABG O2 Content 19.9 (15.0-23.0) %vol ABG Base Excess -2.1 mm/L ABG Hemoglobin 15.6 (13.5-18.0) g/dL ABG Oxyhemoglobin 90.6 % ABG Carboxyhemoglobin 0.9 (0.0-1.6) % ABG Methemoglobin 0.8 % [place] Test A-line O2 Delivery Device Ventilator Oxygen Flow Rate L Sodium (140-148) mmol/L Potassium (3.6-5.2) mmol/L Chloride (100-108) mmol/L Carbon Dioxide (21-32) mmol/L Anion Gap (5.0-14.0) mmol/L BUN (7-18) mg/dL Creatinine (0.8-1.3) mg/dL Est Cr Clr Drug Dosing mL/min Estimated GFR (MDRD) (>60) Glucose (74-106) mg/dL Calcium (8.5-10.1) mg/dL Magnesium (1.8-2.4) mg/dL Total Bilirubin (0.2-1.0) mg/dL AST (15-37) U/L ALT (12-78) U/L Alkaline Phosphatase (46-116) U/L Troponin I (0.000-0.056) ng/mL C-Reactive Protein 19.87 H (0.0-0.3) mg/dL Total Protein (6.4-8.2) g/dL Albumin (3.4-5.0) g/dL Globulin (2.3-3.5) g/dL Albumin/Globulin Ratio (1.2-2.2) [facility] Results Last 24 Hours: Microbiology 08/07/21 11:10 Aerobic Blood Culture - Preliminary Blood - Arterial Line - Direct Stick NO GROWTH AFTER 3 DAYS Anaerobic Blood Culture - Preliminary NO GROWTH AFTER 3 DAYS 08/07/21 11:00 Aerobic Blood Culture - Preliminary Blood - Arm, Right NO GROWTH AFTER 3 DAYS Anaerobic Blood Culture - Preliminary NO GROWTH AFTER 3 DAYS Med Orders - Current: Current Medications Acetaminophen (Acetaminophen 325 Mg Tab) 650 mg PO Q4H PRN PRN Reason: Pain (Mild 1-3)/fever Last Admin: 08/08/21 20:01 Dose: 325 mg Documented by: Albuterol (Albuterol 8 Gm Inhaler) 0 gm INH ASDIRECTED PRN PRN Reason: Shortness of Breath Last Admin: 08/09/21 05:53 Dose: 1 puff Documented by: Baricitinib (Baricitinib 2 Mg Tab) 4 mg PO DAILY [facility]ERT[facility] Stop: 08/20/21 09:01 Last Admin: 08/10/21 08:24 Dose: 4 mg Documented by: Benzonatate (Benzonatate 100 Mg Cap) 100 mg PO Q6H PRN PRN Reason: Cough Last Admin: 08/08/21 20:01 Dose: 100 mg Documented by: Dexamethasone (Dexamethasone 4 Mg/Ml Sdv) 6 mg IVPUSH Q24H [facility] Last Admin: 08/10/21 08:24 Dose: 6 mg Documented by: Dimethicone/Zinc Oxide (Dimethicone 20%/Zinc Oxide 25% 56 Gm [place] Bottle) 1 gm TOP ASDIRECTED PRN PRN Reason: groin Enoxaparin Sodium (Enoxaparin 150 Mg/1 Ml Syringe) 150 mg SUBCUT Q12H [facility] Last Admin: 08/10/21 09:29 Dose: 150 mg Documented by: Doxycycline Hyclate 100 mg/ (Sodium Chloride) 100 mls @ 100 mls/hr IV Q12H [facility] Last Admin: 08/10/21 08:25 Dose: 100 mls/hr Documented by: Ceftriaxone Sodium 1 gm/ (Sodium Chloride) 50 mls @ 100 mls/hr IV Q24H [facility] Last Admin: 08/10/21 09:35 Dose: 100 mls/hr Documented by: Heparin Sodium (Porcine) 5,000 (units/ Sodium Chloride) 501 mls @ 5 mls/hr IV Q72H [facility] Last Admin: 08/09/21 10:30 Dose: 5 mls/hr Documented by: Propofol (Diprivan 100 Ml) 100 mls @ 4.042 mls/hr IV TITRATE [facility]; Protocol Last Admin: 08/10/21 13:05 Dose: 35 mcg/kg/min, 28.291 mls/hr Documented by: Lorazepam (Lorazepam 0.5 Mg Tab) 0.5 mg PO Q4H PRN PRN Reason: Anxiety Last Admin: 08/09/21 08:11 Dose: 0.5 mg Documented by: Mometasone Furoate/Formoterol Fumar (Formoterol/Mometasone 200-5 Mcg 8.8 Gm Inhaler) 2 puff IH BIDRT [facility] Last Admin: 08/10/21 07:58 Dose: 2 puff Documented by: Morphine Sulfate (Morphine 2 Mg/Ml Syringe) 2 mg IVPUSH Q2H PRN PRN Reason: [employer]GER Last Admin: 08/09/21 08:11 Dose: 2 mg Documented by: Ondansetron HCl (Ondansetron 4 Mg/2 Ml Sdv) 4 mg IV Q4H PRN PRN Reason: Nausea/Vomiting Pantoprazole Sodium (Pantoprazole 40 Mg Vial) 40 mg IVPUSH DAILY [facility] Last Admin: 08/10/21 08:23 Dose: 40 mg Documented by: Polyethylene Glycol (Polyethylene Glycol 3350 Powder 17 Gm Packet) 17 gm PO DAILY PRN PRN Reason: Constipation Sodium Chloride (Sodium Chloride 0.9% 10 Ml Syringe) 10 ml FLUSH ASDIRECTED PRN PRN Reason: Keep Vein Open Tamsulosin HCl (Tamsulosin 0.4 Mg Cap.Er) 0.4 mg PO BEDTIME [facility] Last Admin: 08/09/21 21:13 Dose: Not Given Documented by: Discontinued Medications Acetaminophen (Acetaminophen 325 Mg Tab) Confirm Administered Dose 325 mg .ROUTE .STK-MED ONE Stop: 08/08/21 20:16 Last Admin: 08/08/21 20:31 Dose: 325 mg Documented by: Azithromycin (Azithromycin 250 Mg Tab) 250 mg PO DAILY [facility] Last Admin: 08/08/21 00:02 Dose: 500 mg Documented by: Azithromycin (Azithromycin 250 Mg Tab) 250 mg PO BEDTIME [facility] Stop: 08/11/21 21:01 Baricitinib (Baricitinib 2 Mg Tab) 2 mg PO DAILY [facility] Stop: 08/20/21 09:01 Last Admin: 08/09/21 10:50 Dose: Not Given Documented by: Enoxaparin Sodium (Enoxaparin 40 Mg/0.4 Ml Syringe) 40 mg SUBCUT Q24H [facility] Last Admin: 08/09/21 16:51 Dose: 40 mg Documented by: Furosemide (Furosemide 20 Mg/2 Ml Vial) 20 mg IVPUSH NOW ONE Stop: 08/09/21 09:01 Last Admin: 08/09/21 09:14 Dose: 20 mg Documented by: Furosemide (Furosemide 20 Mg/2 Ml Vial) 20 mg IVPUSH NOW ONE Stop: 08/10/21 08:31 Last Admin: 08/10/21 09:29 Dose: 20 mg Documented by: Remdesivir 200 mg/ Sodium (Chloride) 250 mls @ 250 mls/hr IV ONETIME ONE Stop: 08/07/21 13:59 Last Admin: 08/07/21 13:09 Dose: 250 mls/hr Documented by: Remdesivir 100 mg/ Sodium (Chloride) 100 mls @ 100 mls/hr IV Q24H [facility] Stop: 08/11/21 13:59 Last Admin: 08/08/21 15:17 Dose: 100 mls/hr Documented by: Doxycycline Hyclate 100 mg/ (Sodium Chloride) 100 mls @ 100 mls/hr IV NOW ONE Stop: 08/08/21 00:59 Last Admin: 08/08/21 00:02 Dose: 100 mls/hr Documented by: Propofol (Diprivan 100 Ml) Confirm Administered Dose 100 mls @ as directed .ROUTE .STK-MED ONE Stop: 08/09/21 09:36 Last Admin: 08/09/21 10:49 Dose: Not Given Documented by: Sodium Chloride (Normal Saline) 100 mls @ 4 mls/sec IV ASDIRECTED [facility]ERT[facility] Stop: 08/10/21 09:16 Last Admin: 08/10/21 10:51 Dose: 4 mls/sec Documented by: Iopamidol (Iopamidol 755 Mg/Ml 100 Ml Bottle) 100 ml IV . DIRECTED ONE Stop: 08/10/21 09:15 Last Admin: 08/10/21 10:51 Dose: 100 ml Documented by: Lorazepam (Lorazepam 2 Mg/Ml Sdv) 1 mg IVPUSH ONETIME ONE Stop: 08/09/21 04:47 Last Admin: 08/09/21 04:52 Dose: 1 mg Documented by: Lorazepam (Lorazepam 2 Mg/Ml Sdv) Confirm Administered Dose 2 mg .ROUTE .STK-MED ONE Stop: 08/09/21 04:51 Last Admin: 08/09/21 05:27 Dose: Not Given Documented by: Methylprednisolone Sodium Succinate (Methylprednisolone Sodium Succinate 125 Mg/2 Ml Sdv) 125 mg IVPUSH ONETIME ONE Stop: 08/07/21 11:07 Last Admin: 08/07/21 11:09 Dose: 125 mg Documented by: Morphine Sulfate (Morphine 2 Mg/Ml Syringe) Confirm Administered Dose 2 mg .ROUTE .STK-MED ONE Stop: 08/09/21 06:02 Last Admin: 08/09/21 06:21 Dose: Not Given Documented by: Potassium Chloride (Potassium Chloride 20 Meq Tab.Er) 40 meq PO ONETIME ONE Stop: 08/08/21 09:31 Last Admin: 08/08/21 09:58 Dose: 40 meq Documented by: Potassium Chloride (Potassium Chloride 20 Meq Tab.Er) 40 meq PO ONETIME ONE Stop: 08/08/21 17:01 Last Admin: 08/08/21 17:08 Dose: 40 meq Documented by: - Exam Quality Assessment: Supplemental Oxygen (Mechanical ventilation), Central Line/PICC, Urine Catheter, DVT Prophylaxis Central Line Total Time: 0Days 1Hours Urinary Catheter Total Time: 2Days 4Hours General: Sedated, Lethargic HEENT: Pupils Equal Lungs: Decreased Breath Sounds, Crackles. No: Rales, Rhonchi, Wheezing Cardiovascular: Regular Rhythm, No Murmurs, Tachycardia GI/Abdominal Exam: Soft, Non-Tender, No Organomegaly, No Distention Extremities: Non-Tender, No Pedal Edema Skin: Warm, Dry, Intact - Patient Data Lab Results Last 24 hrs: Laboratory Results - last 24 hr 08/09/21 08/09/21 08/09/21 Range/Units 08:25 16:54 16:54 WBC (4.5-11.0) K/uL RBC (4.30-5.90) M/uL Hgb (12.0-15.0) g/dL Hct (40.0-54.0) % MCV (80-98) fL MCH (27-31) pg MCHC (32-36) % Plt Count (150-400) K/uL Add Manual Diff Neutrophils % (Manual) (36-66) % Lymphocytes % (Manual) (24-44) % Monocytes % (Manual) (2-6) % D-Dimer, Quantitative (0.0-500.0) ng/mL Puncture Site Line ABG pH 7.252 L (7.350-7.450) ABG pCO2 69.7 H* (35.0-42.0) mmHg ABG pO2 111.0 H (75.0-100.0) mmHg ABG HCO3 29.7 H (22.0-26.0) mmol/L ABG Total CO2 26.8 (23.0-27.0) mmol/L ABG O2 Saturation 97.2 (95.0-98.0) % ABG O2 Content 20.2 (15.0-23.0) %vol ABG Base Excess 0.6 mm/L ABG Hemoglobin 15.0 (13.5-18.0) g/dL ABG Oxyhemoglobin 95.3 % ABG Carboxyhemoglobin 1.2 (0.0-1.6) % ABG Methemoglobin 0.8 % [place] Test TNP O2 Delivery Device Ventilator Oxygen Flow Rate L Sodium 147 (140-148) mmol/L Potassium 4.9 (3.6-5.2) mmol/L Chloride 106 (100-108) mmol/L Carbon Dioxide 30 (21-32) mmol/L Anion Gap 11.0 (5.0-14.0) mmol/L BUN 30 H (7-18) mg/dL Creatinine 1.3 (0.8-1.3) mg/dL Est Cr Clr Drug Dosing 76.15 mL/min Estimated GFR (MDRD) 56 L (>60) Glucose 154 H (74-106) mg/dL Calcium 7.6 L (8.5-10.1) mg/dL Magnesium (1.8-2.4) mg/dL Total Bilirubin (0.2-1.0) mg/dL AST (15-37) U/L ALT (12-78) U/L Alkaline Phosphatase (46-116) U/L Troponin I 0.017 (0.000-0.056) ng/mL C-Reactive Protein (0.0-0.3) mg/dL Total Protein (6.4-8.2) g/dL Albumin (3.4-5.0) g/dL Globulin (2.3-3.5) g/dL Albumin/Globulin Ratio (1.2-2.2) 08/10/21 08/10/21 08/10/21 Range/Units 05:45 05:45 05:45 WBC 17.2 H (4.5-11.0) K/uL RBC 5.25 (4.30-5.90) M/uL Hgb 15.0 (12.0-15.0) g/dL Hct 47.8 (40.0-54.0) % MCV 91 (80-98) fL MCH 29 (27-31) pg MCHC 31 L (32-36) % Plt Count 207 (150-400) K/uL Add Manual Diff Yes Neutrophils % (Manual) 92 H (36-66) % Lymphocytes % (Manual) 7 L (24-44) % Monocytes % (Manual) 1 L (2-6) % D-Dimer, Quantitative (0.0-500.0) ng/mL Puncture Site Lt brachial ABG pH 7.307 L (7.350-7.450) ABG pCO2 60.7 H (35.0-42.0) mmHg ABG pO2 76.1 (75.0-100.0) mmHg ABG HCO3 29.5 H (22.0-26.0) mmol/L ABG Total CO2 26.1 (23.0-27.0) mmol/L ABG O2 Saturation 94.9 L (95.0-98.0) % ABG O2 Content 19.9 (15.0-23.0) %vol ABG Base Excess 1.9 mm/L ABG Hemoglobin 15.3 (13.5-18.0) g/dL ABG Oxyhemoglobin 92.5 % ABG Carboxyhemoglobin 1.7 H (0.0-1.6) % ABG Methemoglobin 0.8 % [facility] Test A-line O2 Delivery Device Ventilator Oxygen Flow Rate L Sodium 148 (140-148) mmol/L Potassium 4.9 (3.6-5.2) mmol/L Chloride 108 (100-108) mmol/L Carbon Dioxide 30 (21-32) mmol/L Anion Gap 9.8 (5.0-14.0) mmol/L BUN 32 H (7-18) mg/dL Creatinine 1.2 (0.8-1.3) mg/dL Est Cr Clr Drug Dosing 82.50 mL/min Estimated GFR (MDRD) > 60 (>60) Glucose 127 H (74-106) mg/dL Calcium 7.8 L (8.5-10.1) mg/dL Magnesium 3.5 H (1.8-2.4) mg/dL Total Bilirubin 1.8 H (0.2-1.0) mg/dL AST 58 H (15-37) U/L ALT 66 (12-78) U/L Alkaline Phosphatase 162 H (46-116) U/L Troponin I (0.000-0.056) ng/mL C-Reactive Protein (0.0-0.3) mg/dL Total Protein 6.6 (6.4-8.2) g/dL Albumin 2.1 L (3.4-5.0) g/dL Globulin 4.5 H (2.3-3.5) g/dL Albumin/Globulin Ratio 0.5 L (1.2-2.2) 08/10/21 08/10/21 08/10/21 Range/Units 05:45 05:45 13:27 WBC (4.5-11.0) K/uL RBC (4.30-5.90) M/uL Hgb (12.0-15.0) g/dL Hct (40.0-54.0) % MCV (80-98) fL MCH (27-31) pg MCHC (32-36) % Plt Count (150-400) K/uL Add Manual Diff Neutrophils % (Manual) (36-66) % Lymphocytes % (Manual) (24-44) % Monocytes % (Manual) (2-6) % D-Dimer, Quantitative 74888.00 H (0.0-500.0) ng/mL Puncture Site Lt brachial ABG pH 7.129 L* (7.350-7.450) ABG pCO2 98.3 H* (35.0-42.0) mmHg ABG pO2 77.5 (75.0-100.0) mmHg ABG HCO3 31.2 H (22.0-26.0) mmol/L ABG Total CO2 29.2 H (23.0-27.0) mmol/L ABG O2 Saturation 92.2 L (95.0-98.0) % ABG O2 Content 19.9 (15.0-23.0) %vol ABG Base Excess -2.1 mm/L ABG Hemoglobin 15.6 (13.5-18.0) g/dL ABG Oxyhemoglobin 90.6 % ABG Carboxyhemoglobin 0.9 (0.0-1.6) % ABG Methemoglobin 0.8 % [facility] Test A-line O2 Delivery Device Ventilator Oxygen Flow Rate L Sodium (140-148) mmol/L Potassium (3.6-5.2) mmol/L Chloride (100-108) mmol/L Carbon Dioxide (21-32) mmol/L Anion Gap (5.0-14.0) mmol/L BUN (7-18) mg/dL Creatinine (0.8-1.3) mg/dL Est Cr Clr Drug Dosing mL/min Estimated GFR (MDRD) (>60) Glucose (74-106) mg/dL Calcium (8.5-10.1) mg/dL Magnesium (1.8-2.4) mg/dL Total Bilirubin (0.2-1.0) mg/dL AST (15-37) U/L ALT (12-78) U/L Alkaline Phosphatase (46-116) U/L Troponin I (0.000-0.056) ng/mL C-Reactive Protein 19.87 H (0.0-0.3) mg/dL Total Protein (6.4-8.2) g/dL Albumin (3.4-5.0) g/dL Globulin (2.3-3.5) g/dL Albumin/Globulin Ratio (1.2-2.2) Result Diagrams: 08/10/21 05:45 08/10/21 05:45 Silv[facility] Results Last 24 hrs: Microbiology 08/07/21 11:10 Aerobic Blood Culture - Preliminary Blood - Arterial Line - Direct Stick NO GROWTH AFTER 3 DAYS Anaerobic Blood Culture - Preliminary NO GROWTH AFTER 3 DAYS 08/07/21 11:00 Aerobic Blood Culture - Preliminary Blood - Arm, Right NO GROWTH AFTER 3 DAYS Anaerobic Blood Culture - Preliminary NO GROWTH AFTER 3 DAYS Sepsis Event Note - Evaluation Sepsis Screening Result: Severe Sepsis Risk - Focused Exam Vital Signs: Vital Signs Temp Pulse Resp BP BP BP Pulse Ox 08/10/21 14:21 114 H 43 H 97/66 92 L 08/10/21 14:00 115 H 44 H 88/60 L 92 L 08/10/21 13:00 97.3 F 116 H 41 H 94/67 91 L 08/10/21 12:00 97.7 F 117 H 39 H 102/71 92 L 08/10/21 11:00 117 H 34 H 117/57 L 92 L 08/10/21 10:00 96.6 F L 115 H 39 H 101/62 91 L 08/10/21 09:00 97.1 F 111 H 32 H 107/72 92 L 08/10/21 08:00 96.9 F 110 H 32 H 108/73 92 L 08/10/21 07:00 96.8 F L 104 H 35 H 109/69 92 L 08/10/21 06:00 29 H 105/65 91 L 08/10/21 05:00 32 H 107/56 L 92 L 08/10/21 04:00 30 H 93/60 92 L 08/10/21 03:00 33 H 97/63 93 L - Problem List Review Problem List Initiated/Reviewed/Updated: Yes - My Orders Last 24 Hours: My Active Orders 08/09/21 14:21 RT End Tidal CO2 Monitoring [RC] ASDIRECTED 08/09/21 15:13 Communication Order [RC] BID 08/10/21 08:59 Central Venous Line Insertion [OM.PC] Routine 08/10/21 09:00 Enoxaparin [Lovenox] 150 mg SUBCUT Q12H 08/10/21 15:00 BASIC METABOLIC PANEL,BMP [CHEM] Stat 08/11/21 05:00 Chest 1V Frontal [CR] DAILY BLOOD GAS ARTERIAL [BG] Timed CBC WITH AUTO DIFF [HEME] Timed COMPREHENSIVE METABOLIC PN,CMP [CHEM] Timed MAGNESIUM [CHEM] Timed 08/11/21 05:11 CRP [C-REACTIVE PROTEIN] [CHEM] AM D Dimer [D-DIMER QUANTITATIVE] [COAG] AM 08/12/21 05:00 Chest 1V Frontal [CR] DAILY 08/13/21 05:00 Chest 1V Frontal [CR] DAILY 08/14/21 05:00 Chest 1V Frontal [CR] DAILY - Plan Plan:: ASSESSMENT AND PLAN COVID-19 INFECTION-with bilateral pneumonia and acute hypoxic respiratory failure. Current ventilator settings; FiO2 of 70%, PEEP of 18, tidal volume of 360, rate of 28. Stable with current settings, FiO2 has been decreased to 70%. Current plateau pressures are adequate with low tidal volume and higher respiratory rate. Level of CO2 retention stable -Mechanical ventilation -Continue antibiotic therapy with doxycycline and ceftriaxone, today is day 3 of 7 -Limit IV fluids -Prone positioning -Remdesivir has been discontinued -Dexamethasone 6 mg IV daily, today is day 3 -Baricitinib 4 mg p.o. daily, today is day 4 of 14 ACUTE HYPOXIC RESPIRATORY FAILURE-secondary to COVID-19 infection and underlying COPD. -Continue current ventilator management BILATERAL PULMONARY EMBOLI-described as primarily nonocclusive on CT scan report -Lovenox 150 mg subcutaneous every 12 hours ARDS-secondary to COVID-19 infection -Management as above COPD-no evidence of acute exacerbation -Continue outpatient medications CHRONIC KIDNEY DISEASE-renal function improved from admission and stable from yesterday -Closely monitor urine output and renal function BLADDER OUTLET OBSTRUCTION-Paulino catheter -Flomax 0.4 mg p.o. daily MAINTENANCE ISSUES -DVT prophylaxis; Lovenox as above -GI prophylaxis; Protonix 40 mg IV daily -Paulino catheter; Paulino catheter placed because of urinary retention, now needed for close monitoring of urine output -Nutrition; n.p.o. -Nicotine dependence; not required CODE STATUS-FULL CODE ADMISSION STATUS-patient will be admitted to inpatient status, expect at least a 2 night hospital stay for evaluation and management of problems as outlined above. At the time of this admission I do not reasonably expected evaluation and management of this problem will require more than a 96 hour hospital stay. DISPOSITION-anticipate discharge to home after the hospital stay. PRIMARY CARE PROVIDER-patient does not currently have a primary care provider
[2021-08-10] MEDS ORDERED: Sodium Polystyrene Sulfonate 15 GM/60 ML Susp 60 ML Bot PO ONE (16:45)
[2021-08-11] MEDS: propofoL 100 ML IV SCH ×6 (01:10→20:41)
[2021-08-11] MEDS ORDERED: Digoxin 500 MCG/2 ML Amp IVPUSH ONE ×2 (03:46→11:26)
[2021-08-11] MEDS: Formoterol/Mometasone 200-5 MCG 8.8 GM Inhaler IH SCH ×2 (07:18→22:07)
[2021-08-11] MEDS: Dexamethasone 4 MG/ML SDV IVPUSH SCH (08:31)
[2021-08-11] MEDS: Enoxaparin 150 MG/1 ML Syringe SUBCUT SCH (08:32)
[2021-08-11] MEDS: Pantoprazole 40 MG Vial IVPUSH SCH (08:33)
[2021-08-11] MEDS: Doxycycline 100 MG in Sodium Chloride 0.9% 100 ML IV SCH ×2 (08:42→20:43)
[2021-08-11] MEDS: cefTRIAXone 1 GM in Sodium Chloride 0.9% 50 ML IV SCH (10:20)
--- NOTE | 2021-08-11 11:31 | PCM.PN ---
- General Info Date of Service: 08/11/21 Subjective Update: Mr. Loaiza variants significant CO2 retention yesterday following his CT scan, that stabilized through the evening yesterday and he is back to previous baseline. Other than sinus tachycardia he has been hemodynamically stable and has remained afebrile. CRP remains significantly elevated as is his D-dimer although improved from yesterday. He is oozing from IV sites and site of Lovenox injection. Remains intubated and sedated so he is unable to provide m eaningful information concerning symptoms or review of systems. - Patient Data Vitals - Most Recent: Last Vital Signs Temp 97.7 F 08/11/21 08:00 Pulse 122 H 08/11/21 11:00 Resp 29 H 08/11/21 11:00 BP 110/68 08/11/21 11:00 Pulse Ox 92 L 08/11/21 11:00 Weight - Most Recent: 326 lb 8.073 oz I&O - Last 24 Hours: Intake & Output 08/10/21 08/11/21 08/11/21 22:59 06:59 14:59 Intake Total 473 725 Output Total 210 600 Balance 263 125 Lab Results Last 24 Hours: Laboratory Results - last 24 hr 08/10/21 08/10/21 08/10/21 Range/Units 13:27 15:00 15:09 WBC (4.5-11.0) K/uL RBC (4.30-5.90) M/uL Hgb (12.0-15.0) g/dL Hct (40.0-54.0) % MCV (80-98) fL MCH (27-31) pg MCHC (32-36) % Plt Count (150-400) K/uL Add Manual Diff Neutrophils % (Manual) (36-66) % Band Neutrophils % (5-11) % Lymphocytes % (Manual) (24-44) % Monocytes % (Manual) (2-6) % D-Dimer, Quantitative (0.0-500.0) ng/mL Puncture Site Lt brachial Line ABG pH 7.129 L* 7.168 L* (7.350-7.450) ABG pCO2 98.3 H* 87.6 H* (35.0-42.0) mmHg ABG pO2 77.5 77.6 (75.0-100.0) mmHg ABG HCO3 31.2 H 30.6 H (22.0-26.0) mmol/L ABG Total CO2 29.2 H 28.2 H (23.0-27.0) mmol/L ABG O2 Saturation 92.2 L 93.3 L (95.0-98.0) % ABG O2 Content 19.9 19.9 (15.0-23.0) %vol ABG Base Excess -2.1 -1.2 mm/L ABG Hemoglobin 15.6 15.3 (13.5-18.0) g/dL ABG Oxyhemoglobin 90.6 92.2 % ABG Carboxyhemoglobin 0.9 0.5 (0.0-1.6) % ABG Methemoglobin 0.8 0.7 % [facility] Test A-line TNP O2 Delivery Device Ventilator Ventilator Oxygen Flow Rate L Sodium 147 (140-148) mmol/L Potassium 5.8 H (3.6-5.2) mmol/L Chloride 105 (100-108) mmol/L Carbon Dioxide 30 (21-32) mmol/L Anion Gap 17.8 H (5.0-14.0) mmol/L BUN 38 H (7-18) mg/dL Creatinine 1.5 H (0.8-1.3) mg/dL Est Cr Clr Drug Dosing 66.00 mL/min Estimated GFR (MDRD) 48 L (>60) Glucose 177 H (74-106) mg/dL Calcium 7.8 L (8.5-10.1) mg/dL Magnesium (1.8-2.4) mg/dL Total Bilirubin (0.2-1.0) mg/dL AST (15-37) U/L ALT (12-78) U/L Alkaline Phosphatase (46-116) U/L C-Reactive Protein (0.0-0.3) mg/dL Total Protein (6.4-8.2) g/dL Albumin (3.4-5.0) g/dL Globulin (2.3-3.5) g/dL Albumin/Globulin Ratio (1.2-2.2) 08/10/21 08/10/21 08/10/21 Range/Units 17:05 23:06 23:06 WBC (4.5-11.0) K/uL RBC (4.30-5.90) M/uL Hgb (12.0-15.0) g/dL Hct (40.0-54.0) % MCV (80-98) fL MCH (27-31) pg MCHC (32-36) % Plt Count (150-400) K/uL Add Manual Diff Neutrophils % (Manual) (36-66) % Band Neutrophils % (5-11) % Lymphocytes % (Manual) (24-44) % Monocytes % (Manual) (2-6) % D-Dimer, Quantitative (0.0-500.0) ng/mL Puncture Site Line Line ABG pH 7.224 L 7.358 (7.350-7.450) ABG pCO2 73.7 H* 57.7 H (35.0-42.0) mmHg ABG pO2 84.0 95.4 (75.0-100.0) mmHg ABG HCO3 29.3 H 31.6 H (22.0-26.0) mmol/L ABG Total CO2 26.5 27.8 H (23.0-27.0) mmol/L ABG O2 Saturation 95.0 97.5 (95.0-98.0) % ABG O2 Content 20.5 20.1 (15.0-23.0) %vol ABG Base Excess -0.6 4.8 mm/L ABG Hemoglobin 15.5 14.9 (13.5-18.0) g/dL ABG Oxyhemoglobin 93.7 95.6 % ABG Carboxyhemoglobin 0.7 1.2 (0.0-1.6) % ABG Methemoglobin 0.7 0.7 % [facility] Test TNP O2 Delivery Device Ventilator Ventilator Oxygen Flow Rate L Sodium 150 H (140-148) mmol/L Potassium 4.5 (3.6-5.2) mmol/L Chloride 109 H (100-108) mmol/L Carbon Dioxide 30 (21-32) mmol/L Anion Gap 15.5 H (5.0-14.0) mmol/L BUN 43 H (7-18) mg/dL Creatinine 1.5 H (0.8-1.3) mg/dL Est Cr Clr Drug Dosing 66.00 mL/min Estimated GFR (MDRD) 48 L (>60) Glucose 141 H (74-106) mg/dL Calcium 7.7 L (8.5-10.1) mg/dL Magnesium (1.8-2.4) mg/dL Total Bilirubin (0.2-1.0) mg/dL AST (15-37) U/L ALT (12-78) U/L Alkaline Phosphatase (46-116) U/L C-Reactive Protein (0.0-0.3) mg/dL Total Protein (6.4-8.2) g/dL Albumin (3.4-5.0) g/dL Globulin (2.3-3.5) g/dL Albumin/Globulin Ratio (1.2-2.2) 08/11/21 08/11/21 08/11/21 Range/Units 04:30 04:30 04:30 WBC 18.9 H (4.5-11.0) K/uL RBC 5.05 (4.30-5.90) M/uL Hgb 14.5 (12.0-15.0) g/dL Hct 47.1 (40.0-54.0) % MCV 93 (80-98) fL MCH 29 (27-31) pg MCHC 31 L (32-36) % Plt Count 281 (150-400) K/uL Add Manual Diff Yes Neutrophils % (Manual) 78 H (36-66) % Band Neutrophils % 11 (5-11) % Lymphocytes % (Manual) 7 L (24-44) % Monocytes % (Manual) 4 (2-6) % D-Dimer, Quantitative (0.0-500.0) ng/mL Puncture Site Line ABG pH 7.346 L (7.350-7.450) ABG pCO2 58.6 H (35.0-42.0) mmHg ABG pO2 80.0 (75.0-100.0) mmHg ABG HCO3 31.2 H (22.0-26.0) mmol/L ABG Total CO2 27.5 H (23.0-27.0) mmol/L ABG O2 Saturation 96.0 (95.0-98.0) % ABG O2 Content 19.8 (15.0-23.0) %vol ABG Base Excess 4.2 mm/L ABG Hemoglobin 15.0 (13.5-18.0) g/dL ABG Oxyhemoglobin 93.9 % ABG Carboxyhemoglobin 1.3 (0.0-1.6) % ABG Methemoglobin 0.9 % [facility] Test O2 Delivery Device Ventilator Oxygen Flow Rate L Sodium 151 H (140-148) mmol/L Potassium 4.5 (3.6-5.2) mmol/L Chloride 109 H (100-108) mmol/L Carbon Dioxide 32 (21-32) mmol/L Anion Gap 14.5 H (5.0-14.0) mmol/L BUN 46 H (7-18) mg/dL Creatinine 1.4 H (0.8-1.3) mg/dL Est Cr Clr Drug Dosing 70.71 mL/min Estimated GFR (MDRD) 52 L (>60) Glucose 142 H (74-106) mg/dL Calcium 7.9 L (8.5-10.1) mg/dL Magnesium 3.8 H (1.8-2.4) mg/dL Total Bilirubin 1.3 H (0.2-1.0) mg/dL AST 58 H (15-37) U/L ALT 59 (12-78) U/L Alkaline Phosphatase 151 H (46-116) U/L C-Reactive Protein (0.0-0.3) mg/dL Total Protein 6.6 (6.4-8.2) g/dL Albumin 2.0 L (3.4-5.0) g/dL Globulin 4.6 H (2.3-3.5) g/dL Albumin/Globulin Ratio 0.4 L (1.2-2.2) 08/11/21 08/11/21 Range/Units 04:30 04:30 WBC (4.5-11.0) K/uL RBC (4.30-5.90) M/uL Hgb (12.0-15.0) g/dL Hct (40.0-54.0) % MCV (80-98) fL MCH (27-31) pg MCHC (32-36) % Plt Count (150-400) K/uL Add Manual Diff Neutrophils % (Manual) (36-66) % Band Neutrophils % (5-11) % Lymphocytes % (Manual) (24-44) % Monocytes % (Manual) (2-6) % D-Dimer, Quantitative 9670.88 H (0.0-500.0) ng/mL Puncture Site ABG pH (7.350-7.450) ABG pCO2 (35.0-42.0) mmHg ABG pO2 (75.0-100.0) mmHg ABG HCO3 (22.0-26.0) mmol/L ABG Total CO2 (23.0-27.0) mmol/L ABG O2 Saturation (95.0-98.0) % ABG O2 Content (15.0-23.0) %vol ABG Base Excess mm/L ABG Hemoglobin (13.5-18.0) g/dL ABG Oxyhemoglobin % ABG Carboxyhemoglobin (0.0-1.6) % ABG Methemoglobin % [facility] Test O2 Delivery Device Oxygen Flow Rate L Sodium (140-148) mmol/L Potassium (3.6-5.2) mmol/L Chloride (100-108) mmol/L Carbon Dioxide (21-32) mmol/L Anion Gap (5.0-14.0) mmol/L BUN (7-18) mg/dL Creatinine (0.8-1.3) mg/dL Est Cr Clr Drug Dosing mL/min Estimated GFR (MDRD) (>60) Glucose (74-106) mg/dL Calcium (8.5-10.1) mg/dL Magnesium (1.8-2.4) mg/dL Total Bilirubin (0.2-1.0) mg/dL AST (15-37) U/L ALT (12-78) U/L Alkaline Phosphatase (46-116) U/L C-Reactive Protein 21.14 H (0.0-0.3) mg/dL Total Protein (6.4-8.2) g/dL Albumin (3.4-5.0) g/dL Globulin (2.3-3.5) g/dL Albumin/Globulin Ratio (1.2-2.2) Silviano Results Last 24 Hours: Microbiology 08/07/21 11:00 Aerobic Blood Culture - Preliminary Blood - Arm, Right NO GROWTH AFTER 4 DAYS Anaerobic Blood Culture - Preliminary NO GROWTH AFTER 4 DAYS 08/07/21 11:10 Aerobic Blood Culture - Preliminary Blood - Arterial Line - Direct Stick NO GROWTH AFTER 4 DAYS Anaerobic Blood Culture - Preliminary NO GROWTH AFTER 4 DAYS Med Orders - Current: Current Medications Acetaminophen (Acetaminophen 325 Mg Tab) 650 mg PO Q4H PRN PRN Reason: Pain (Mild 1-3)/fever Last Admin: 08/08/21 20:01 Dose: 325 mg Documented by: Albuterol (Albuterol 8 Gm Inhaler) 0 gm INH ASDIRECTED PRN PRN Reason: Shortness of Breath Last Admin: 08/09/21 05:53 Dose: 1 puff Documented by: Baricitinib (Baricitinib 2 Mg Tab) 2 mg PO DAILY [facility] Stop: 08/20/21 09:01 Last Admin: 08/11/21 09:36 Dose: 2 mg Documented by: Benzonatate (Benzonatate 100 Mg Cap) 100 mg PO Q6H PRN PRN Reason: Cough Last Admin: 08/08/21 20:01 Dose: 100 mg Documented by: Dexamethasone (Dexamethasone 4 Mg/Ml Sdv) 6 mg IVPUSH Q24H [facility] Last Admin: 08/11/21 08:31 Dose: 6 mg Documented by: Dimethicone/Zinc Oxide (Dimethicone 20%/Zinc Oxide 25% 56 Gm [place] Bottle) 1 gm TOP ASDIRECTED PRN PRN Reason: groin Enoxaparin Sodium (Enoxaparin 150 Mg/1 Ml Syringe) 110 mg SUBCUT Q12H [facility] Doxycycline Hyclate 100 mg/ (Sodium Chloride) 100 mls @ 100 mls/hr IV Q12H [facility] Last Admin: 08/11/21 08:42 Dose: 100 mls/hr Documented by: Ceftriaxone Sodium 1 gm/ (Sodium Chloride) 50 mls @ 100 mls/hr IV Q24H [facility] Last Admin: 08/11/21 10:20 Dose: 100 mls/hr Documented by: Heparin Sodium (Porcine) 5,000 (units/ Sodium Chloride) 501 mls @ 5 mls/hr IV Q72H [facility] Last Admin: 08/09/21 10:30 Dose: 5 mls/hr Documented by: Propofol (Diprivan 100 Ml) 100 mls @ 4.042 mls/hr IV TITRATE [facility]; Protocol Last Admin: 08/11/21 08:29 Dose: 30 mcg/kg/min, 24.249 mls/hr Documented by: Lorazepam (Lorazepam 0.5 Mg Tab) 0.5 mg PO Q4H PRN PRN Reason: Anxiety Last Admin: 08/09/21 08:11 Dose: 0.5 mg Documented by: Mometasone Furoate/Formoterol Fumar (Formoterol/Mometasone 200-5 Mcg 8.8 Gm Inhaler) 2 puff IH BIDRT [facility] Last Admin: 08/11/21 07:18 Dose: 2 puff Documented by: Morphine Sulfate (Morphine 2 Mg/Ml Syringe) 2 mg IVPUSH Q2H PRN PRN Reason: [employer] 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 Last Admin: 08/09/21 08:11 Dose: 2 mg Documented by: Ondansetron HCl (Ondansetron 4 Mg/2 Ml Sdv) 4 mg IV Q4H PRN PRN Reason: Nausea/Vomiting Pantoprazole Sodium (Pantoprazole 40 Mg Vial) 40 mg IVPUSH DAILY [facility] Last Admin: 08/11/21 08:33 Dose: 40 mg Documented by: Polyethylene Glycol (Polyethylene Glycol 3350 Powder 17 Gm Packet) 17 gm PO DAILY PRN PRN Reason: Constipation Sodium Chloride (Sodium Chloride 0.9% 10 Ml Syringe) 10 ml FLUSH ASDIRECTED PRN PRN Reason: Keep Vein Open Discontinued Medications Acetaminophen (Acetaminophen 325 Mg Tab) Confirm Administered Dose 325 mg .ROUTE .STK-MED ONE Stop: 08/08/21 20:16 Last Admin: 08/08/21 20:31 Dose: 325 mg Documented by: Azithromycin (Azithromycin 250 Mg Tab) 250 mg PO DAILY [facility] Last Admin: 08/08/21 00:02 Dose: 500 mg Documented by: Azithromycin (Azithromycin 250 Mg Tab) 250 mg PO BEDTIME [facility] Stop: 08/11/21 21:01 Baricitinib (Baricitinib 2 Mg Tab) 2 mg PO DAILY [facility] Stop: 08/20/21 09:01 Last Admin: 08/09/21 10:50 Dose: Not Given Documented by: Baricitinib (Baricitinib 2 Mg Tab) 4 mg PO DAILY [facility] Stop: 08/20/21 09:01 Last Admin: 08/10/21 08:24 Dose: 4 mg Documented by: Digoxin (Digoxin 500 Mcg/2 Ml Amp) 250 mcg IVPUSH ONETIME ONE Stop: 08/11/21 03:47 Last Admin: 08/11/21 03:57 Dose: 250 mcg Documented by: Enoxaparin Sodium (Enoxaparin 40 Mg/0.4 Ml Syringe) 40 mg SUBCUT Q24H [facility] Last Admin: 08/09/21 16:51 Dose: 40 mg Documented by: Enoxaparin Sodium (Enoxaparin 150 Mg/1 Ml Syringe) 150 mg SUBCUT Q12H [facility] Last Admin: 08/11/21 08:32 Dose: 150 mg Documented by: Furosemide (Furosemide 20 Mg/2 Ml Vial) 20 mg IVPUSH NOW ONE Stop: 08/09/21 09:01 Last Admin: 08/09/21 09:14 Dose: 20 mg Documented by: Furosemide (Furosemide 20 Mg/2 Ml Vial) 20 mg IVPUSH NOW ONE Stop: 08/10/21 08:31 Last Admin: 08/10/21 09:29 Dose: 20 mg Documented by: Remdesivir 200 mg/ Sodium (Chloride) 250 mls @ 250 mls/hr IV ONETIME ONE Stop: 08/07/21 13:59 Last Admin: 08/07/21 13:09 Dose: 250 mls/hr Documented by: Remdesivir 100 mg/ Sodium (Chloride) 100 mls @ 100 mls/hr IV Q24H [facility] Stop: 08/11/21 13:59 Last Admin: 08/08/21 15:17 Dose: 100 mls/hr Documented by: Doxycycline Hyclate 100 mg/ (Sodium Chloride) 100 mls @ 100 mls/hr IV NOW ONE Stop: 08/08/21 00:59 Last Admin: 08/08/21 00:02 Dose: 100 mls/hr Documented by: Propofol (Diprivan 100 Ml) Confirm Administered Dose 100 mls @ as directed .ROUTE .STK-MED ONE Stop: 08/09/21 09:36 Last Admin: 08/09/21 10:49 Dose: Not Given Documented by: Sodium Chloride (Normal Saline) 100 mls @ 4 mls/sec IV ASDIRECTED [facility] Stop: 08/10/21 09:16 Last Admin: 08/10/21 10:51 Dose: 4 mls/sec Documented by: Iopamidol (Iopamidol 755 Mg/Ml 100 Ml Bottle) 100 ml IV . DIRECTED ONE Stop: 08/10/21 09:15 Last Admin: 08/10/21 10:51 Dose: 100 ml Documented by: Lorazepam (Lorazepam 2 Mg/Ml Sdv) 1 mg IVPUSH ONETIME ONE Stop: 08/09/21 04:47 Last Admin: 08/09/21 04:52 Dose: 1 mg Documented by: Lorazepam (Lorazepam 2 Mg/Ml Sdv) Confirm Administered Dose 2 mg .ROUTE .STK-MED ONE Stop: 08/09/21 04:51 Last Admin: 08/09/21 05:27 Dose: Not Given Documented by: Methylprednisolone Sodium Succinate (Methylprednisolone Sodium Succinate 125 Mg/2 Ml Sdv) 125 mg IVPUSH ONETIME ONE Stop: 08/07/21 11:07 Last Admin: 08/07/21 11:09 Dose: 125 mg Documented by: Morphine Sulfate (Morphine 2 Mg/Ml Syringe) Confirm Administered Dose 2 mg .ROUTE .STK-MED ONE Stop: 08/09/21 06:02 Last Admin: 08/09/21 06:21 Dose: Not Given Documented by: Potassium Chloride (Potassium Chloride 20 Meq Tab.Er) 40 meq PO ONETIME ONE Stop: 08/08/21 09:31 Last Admin: 08/08/21 09:58 Dose: 40 meq Documented by: Potassium Chloride (Potassium Chloride 20 Meq Tab.Er) 40 meq PO ONETIME ONE Stop: 08/08/21 17:01 Last Admin: 08/08/21 17:08 Dose: 40 meq Documented by: Propofol (Propofol 200 Mg/20 Ml Sdv) 200 mg .ROUTE .STK-MED ONE Stop: 08/09/21 10:01 Sodium Polystyrene Sulfonate (Sodium Polystyrene Sulfonate 15 Gm/60 Ml Susp 60 Ml Bot) 30 gm PO ONETIME ONE Stop: 08/10/21 16:46 Last Admin: 08/10/21 17:59 Dose: 30 gm Documented by: Succinylcholine Chloride (Succinylcholine 200 Mg/10 Ml Mdv) 200 mg .ROUTE .STK- MED ONE Stop: 08/09/21 10:01 Tamsulosin HCl (Tamsulosin 0.4 Mg Cap.Er) 0.4 mg PO BEDTIME [facility] Last Admin: 08/09/21 21:13 Dose: Not Given Documented by: - Exam Quality Assessment: Supplemental Oxygen (Intubated with mechanical ventilation), Central Line/PICC, Urine Catheter, DVT Prophylaxis Central Line Total Time: 0Days 14Hours Urinary Catheter Total Time: 3Days 4Hours General: Sedated, Lethargic HEENT: Pupils Equal Lungs: Decreased Breath Sounds, Crackles. No: Rales, Rhonchi, Wheezing Cardiovascular: Regular Rhythm, No Murmurs, Tachycardia GI/Abdominal Exam: Soft, Non-Tender, No Organomegaly, No Distention Extremities: Non-Tender, No Pedal Edema - Patient Data Lab Results Last 24 hrs: Laboratory Results - last 24 hr 08/10/21 08/10/21 08/10/21 Range/Units 13:27 15:00 15:09 WBC (4.5-11.0) K/uL RBC (4.30-5.90) M/uL Hgb (12.0-15.0) g/dL Hct (40.0-54.0) % MCV (80-98) fL MCH (27-31) pg MCHC (32-36) % Plt Count (150-400) K/uL Add Manual Diff Neutrophils % (Manual) (36-66) % Band Neutrophils % (5-11) % Lymphocytes % (Manual) (24-44) % Monocytes % (Manual) (2-6) % D-Dimer, Quantitative (0.0-500.0) ng/mL Puncture Site Lt brachial Line ABG pH 7.129 L* 7.168 L* (7.350-7.450) ABG pCO2 98.3 H* 87.6 H* (35.0-42.0) mmHg ABG pO2 77.5 77.6 (75.0-100.0) mmHg ABG HCO3 31.2 H 30.6 H (22.0-26.0) mmol/L ABG Total CO2 29.2 H 28.2 H (23.0-27.0) mmol/L ABG O2 Saturation 92.2 L 93.3 L (95.0-98.0) % ABG O2 Content 19.9 19.9 (15.0-23.0) %vol ABG Base Excess -2.1 -1.2 mm/L ABG Hemoglobin 15.6 15.3 (13.5-18.0) g/dL ABG Oxyhemoglobin 90.6 92.2 % ABG Carboxyhemoglobin 0.9 0.5 (0.0-1.6) % ABG Methemoglobin 0.8 0.7 % [place] Test A-line TNP O2 Delivery Device Ventilator Ventilator Oxygen Flow Rate L Sodium 147 (140-148) mmol/L Potassium 5.8 H (3.6-5.2) mmol/L Chloride 105 (100-108) mmol/L Carbon Dioxide 30 (21-32) mmol/L Anion Gap 17.8 H (5.0-14.0) mmol/L BUN 38 H (7-18) mg/dL Creatinine 1.5 H (0.8-1.3) mg/dL Est Cr Clr Drug Dosing 66.00 mL/min Estimated GFR (MDRD) 48 L (>60) Glucose 177 H (74-106) mg/dL Calcium 7.8 L (8.5-10.1) mg/dL Magnesium (1.8-2.4) mg/dL Total Bilirubin (0.2-1.0) mg/dL AST (15-37) U/L ALT (12-78) U/L Alkaline Phosphatase (46-116) U/L C-Reactive Protein (0.0-0.3) mg/dL Total Protein (6.4-8.2) g/dL Albumin (3.4-5.0) g/dL Globulin (2.3-3.5) g/dL Albumin/Globulin Ratio (1.2-2.2) 08/10/21 08/10/21 08/10/21 Range/Units 17:05 23:06 23:06 WBC (4.5-11.0) K/uL RBC (4.30-5.90) M/uL Hgb (12.0-15.0) g/dL Hct (40.0-54.0) % MCV (80-98) fL MCH (27-31) pg MCHC (32-36) % Plt Count (150-400) K/uL Add Manual Diff Neutrophils % (Manual) (36-66) % Band Neutrophils % (5-11) % Lymphocytes % (Manual) (24-44) % Monocytes % (Manual) (2-6) % D-Dimer, Quantitative (0.0-500.0) ng/mL Puncture Site Line Line ABG pH 7.224 L 7.358 (7.350-7.450) ABG pCO2 73.7 H* 57.7 H (35.0-42.0) mmHg ABG pO2 84.0 95.4 (75.0-100.0) mmHg ABG HCO3 29.3 H 31.6 H (22.0-26.0) mmol/L ABG Total CO2 26.5 27.8 H (23.0-27.0) mmol/L ABG O2 Saturation 95.0 97.5 (95.0-98.0) % ABG O2 Content 20.5 20.1 (15.0-23.0) %vol ABG Base Excess -0.6 4.8 mm/L ABG Hemoglobin 15.5 14.9 (13.5-18.0) g/dL ABG Oxyhemoglobin 93.7 95.6 % ABG Carboxyhemoglobin 0.7 1.2 (0.0-1.6) % ABG Methemoglobin 0.7 0.7 % [facility] Test TNP O2 Delivery Device Ventilator Ventilator Oxygen Flow Rate L Sodium 150 H (140-148) mmol/L Potassium 4.5 (3.6-5.2) mmol/L Chloride 109 H (100-108) mmol/L Carbon Dioxide 30 (21-32) mmol/L Anion Gap 15.5 H (5.0-14.0) mmol/L BUN 43 H (7-18) mg/dL Creatinine 1.5 H (0.8-1.3) mg/dL Est Cr Clr Drug Dosing 66.00 mL/min Estimated GFR (MDRD) 48 L (>60) Glucose 141 H (74-106) mg/dL Calcium 7.7 L (8.5-10.1) mg/dL Magnesium (1.8-2.4) mg/dL Total Bilirubin (0.2-1.0) mg/dL AST (15-37) U/L ALT (12-78) U/L Alkaline Phosphatase (46-116) U/L C-Reactive Protein (0.0-0.3) mg/dL Total Protein (6.4-8.2) g/dL Albumin (3.4-5.0) g/dL Globulin (2.3-3.5) g/dL Albumin/Globulin Ratio (1.2-2.2) 08/11/21 08/11/21 08/11/21 Range/Units 04:30 04:30 04:30 WBC 18.9 H (4.5-11.0) K/uL RBC 5.05 (4.30-5.90) M/uL Hgb 14.5 (12.0-15.0) g/dL Hct 47.1 (40.0-54.0) % MCV 93 (80-98) fL MCH 29 (27-31) pg MCHC 31 L (32-36) % Plt Count 281 (150-400) K/uL Add Manual Diff Yes Neutrophils % (Manual) 78 H (36-66) % Band Neutrophils % 11 (5-11) % Lymphocytes % (Manual) 7 L (24-44) % Monocytes % (Manual) 4 (2-6) % D-Dimer, Quantitative (0.0-500.0) ng/mL Puncture Site Line ABG pH 7.346 L (7.350-7.450) ABG pCO2 58.6 H (35.0-42.0) mmHg ABG pO2 80.0 (75.0-100.0) mmHg ABG HCO3 31.2 H (22.0-26.0) mmol/L ABG Total CO2 27.5 H (23.0-27.0) mmol/L ABG O2 Saturation 96.0 (95.0-98.0) % ABG O2 Content 19.8 (15.0-23.0) %vol ABG Base Excess 4.2 mm/L ABG Hemoglobin 15.0 (13.5-18.0) g/dL ABG Oxyhemoglobin 93.9 % ABG Carboxyhemoglobin 1.3 (0.0-1.6) % ABG Methemoglobin 0.9 % [facility] Test O2 Delivery Device Ventilator Oxygen Flow Rate L Sodium 151 H (140-148) mmol/L Potassium 4.5 (3.6-5.2) mmol/L Chloride 109 H (100-108) mmol/L Carbon Dioxide 32 (21-32) mmol/L Anion Gap 14.5 H (5.0-14.0) mmol/L BUN 46 H (7-18) mg/dL Creatinine 1.4 H (0.8-1.3) mg/dL Est Cr Clr Drug Dosing 70.71 mL/min Estimated GFR (MDRD) 52 L (>60) Glucose 142 H (74-106) mg/dL Calcium 7.9 L (8.5-10.1) mg/dL Magnesium 3.8 H (1.8-2.4) mg/dL Total Bilirubin 1.3 H (0.2-1.0) mg/dL AST 58 H (15-37) U/L ALT 59 (12-78) U/L Alkaline Phosphatase 151 H (46-116) U/L C-Reactive Protein (0.0-0.3) mg/dL Total Protein 6.6 (6.4-8.2) g/dL Albumin 2.0 L (3.4-5.0) g/dL Globulin 4.6 H (2.3-3.5) g/dL Albumin/Globulin Ratio 0.4 L (1.2-2.2) 08/11/21 08/11/21 Range/Units 04:30 04:30 WBC (4.5-11.0) K/uL RBC (4.30-5.90) M/uL Hgb (12.0-15.0) g/dL Hct (40.0-54.0) % MCV (80-98) fL MCH (27-31) pg MCHC (32-36) % Plt Count (150-400) K/uL Add Manual Diff Neutrophils % (Manual) (36-66) % Band Neutrophils % (5-11) % Lymphocytes % (Manual) (24-44) % Monocytes % (Manual) (2-6) % D-Dimer, Quantitative 9670.88 H (0.0-500.0) ng/mL Puncture Site ABG pH (7.350-7.450) ABG pCO2 (35.0-42.0) mmHg ABG pO2 (75.0-100.0) mmHg ABG HCO3 (22.0-26.0) mmol/L ABG Total CO2 (23.0-27.0) mmol/L ABG O2 Saturation (95.0-98.0) % ABG O2 Content (15.0-23.0) %vol ABG Base Excess mm/L ABG Hemoglobin (13.5-18.0) g/dL ABG Oxyhemoglobin % ABG Carboxyhemoglobin (0.0-1.6) % ABG Methemoglobin % [facility]an Test O2 Delivery Device Oxygen Flow Rate L Sodium (140-148) mmol/L Potassium (3.6-5.2) mmol/L Chloride (100-108) mmol/L Carbon Dioxide (21-32) mmol/L Anion Gap (5.0-14.0) mmol/L BUN (7-18) mg/dL Creatinine (0.8-1.3) mg/dL Est Cr Clr Drug Dosing mL/min Estimated GFR (MDRD) (>60) Glucose (74-106) mg/dL Calcium (8.5-10.1) mg/dL Magnesium (1.8-2.4) mg/dL Total Bilirubin (0.2-1.0) mg/dL AST (15-37) U/L ALT (12-78) U/L Alkaline Phosphatase (46-116) U/L C-Reactive Protein 21.14 H (0.0-0.3) mg/dL Total Protein (6.4-8.2) g/dL Albumin (3.4-5.0) g/dL Globulin (2.3-3.5) g/dL Albumin/Globulin Ratio (1.2-2.2) Result Diagrams: 08/11/21 04:30 08/11/21 04:30 Silviano Results Last 24 hrs: Microbiology 08/07/21 11:00 Aerobic Blood Culture - Preliminary Blood - Arm, Right NO GROWTH AFTER 4 DAYS Anaerobic Blood Culture - Preliminary NO GROWTH AFTER 4 DAYS 08/07/21 11:10 Aerobic Blood Culture - Preliminary Blood - Arterial Line - Direct Stick NO GROWTH AFTER 4 DAYS Anaerobic Blood Culture - Preliminary NO GROWTH AFTER 4 DAYS Sepsis Event Note - Evaluation Sepsis Screening Result: Severe Sepsis Risk - Focused Exam Vital Signs: Vital Signs Temp Pulse Pulse Resp BP Pulse Ox 08/11/21 11:00 122 H 29 H 110/68 92 L 08/11/21 10:00 124 H 28 H 110/51 L 92 L 08/11/21 09:00 125 H 29 H 115/58 L 91 L 08/11/21 08:00 97.7 F 125 H 28 H 106/59 L 93 L 08/11/21 07:00 126 H 36 H 114/59 L 08/11/21 06:00 124 H 28 H 108/67 93 L 08/11/21 05:00 124 H 29 H 110/62 93 L 08/11/21 04:00 121 H 28 H 106/71 92 L 08/11/21 03:57 122 H 08/11/21 03:00 97.2 F 117 H 27 H 104/67 92 L 08/11/21 02:00 119 H 26 H 110/77 92 L 08/11/21 01:00 120 H 32 H 113/76 91 L 08/11/21 00:00 116 H 29 H 113/78 91 L - Problem List Review Problem List Initiated/Reviewed/Updated: Yes - My Orders Last 24 Hours: My Active Orders 08/10/21 15:29 Chest 1V Frontal [CR] Urgent 08/11/21 05:00 Chest 1V Frontal [CR] DAILY 08/11/21 09:00 Baricitinib [Olumiant] 2 mg PO DAILY 08/11/21 11:20 Enoxaparin [Lovenox] 110 mg SUBCUT Q12H 08/11/21 11:23 FIBRINOGEN [COAG] Stat INR,PT,PROTHROMBIN TIME [COAG] Stat PTT,PARTIAL THROMBOPLSTIN TIME [COAG] Stat 08/11/21 11:26 Digoxin [Lanoxin] 250 mcg IVPUSH ONETIME ONE 08/11/21 17:00 BASIC METABOLIC PANEL,BMP [CHEM] Stat BLOOD GAS ARTERIAL [BG] Stat 08/12/21 05:00 Chest 1V Frontal [CR] DAILY BLOOD GAS ARTERIAL [BG] Timed CBC WITH AUTO DIFF [HEME] Timed COMPREHENSIVE METABOLIC PN,CMP [CHEM] Timed DIGOXIN [CHEM] Timed MAGNESIUM [CHEM] Timed 08/12/21 05:11 CRP [C-REACTIVE PROTEIN] [CHEM] AM D Dimer [D-DIMER QUANTITATIVE] [COAG] AM 08/13/21 05:00 Chest 1V Frontal [CR] DAILY 08/14/21 05:00 Chest 1V Frontal [CR] DAILY - Plan Plan:: ASSESSMENT AND PLAN COVID-19 INFECTION-with bilateral pneumonia and acute hypoxic respiratory failure. Current ventilator settings; FiO2 of 70%, PEEP of 18, tidal volume of 360, rate of 28. Stable with current settings, FiO2 has been decreased to 70%. -Mechanical ventilation -Continue antibiotic therapy with doxycycline and ceftriaxone, today is day 4 of 7 -Limit IV fluids -Prone positioning -Remdesivir has been discontinued -Dexamethasone 6 mg IV daily, today is day 5 -Baricitinib 4 mg p.o. daily, today is day 5 of 14 ACUTE HYPOXIC RESPIRATORY FAILURE-secondary to COVID-19 infection and underlying COPD. -Continue current ventilator management BILATERAL PULMONARY EMBOLI-described as primarily nonocclusive on CT scan report. He is noted to be oozing from his gums as well as IV and injection sites -Evaluate for DIC, PT, PTT, fibrinogen levels are pending -Lovenox 110 mg subcutaneous every 12 hours ARDS-secondary to COVID-19 infection -Management as above COPD-no evidence of acute exacerbation -Continue outpatient medications CHRONIC KIDNEY DISEASE-renal function did show decline yesterday with increase in creatinine, this has stabilized over the last 24 hours, with modest improvement today -Closely monitor urine output and renal function BLADDER OUTLET OBSTRUCTION-Paulino catheter MAINTENANCE ISSUES -DVT prophylaxis; Lovenox as above -GI prophylaxis; Protonix 40 mg IV daily -Paulino catheter; Paulino catheter placed because of urinary retention, now needed for close monitoring of urine output -Nutrition; n.p.o. -Nicotine dependence; not required CODE STATUS-FULL CODE ADMISSION STATUS-patient will be admitted to inpatient status, expect at least a 2 night hospital stay for evaluation and management of problems as outlined above. At the time of this admission I do not reasonably expected evaluation and management of this problem will require more than a 96 hour hospital stay. DISPOSITION-anticipate discharge to home after the hospital stay. PRIMARY CARE PROVIDER-patient does not currently have a primary care provider
[2021-08-11] MEDS: Enoxaparin 120 MG/0.8 ML Syringe SUBCUT SCH (22:08)
[2021-08-12] MEDS: propofoL 100 ML IV SCH ×6 (00:51→22:34)
[2021-08-12] MEDS: Formoterol/Mometasone 200-5 MCG 8.8 GM Inhaler IH SCH ×2 (07:12→20:52)
[2021-08-12] MEDS ORDERED: Sodium Polystyrene Sulfonate 15 GM/60 ML Susp 60 ML Bot PO ONE (08:22)
[2021-08-12] MEDS ORDERED: Digoxin 500 MCG/2 ML Amp IVPUSH ONE (08:27)
[2021-08-12] MEDS ORDERED: Furosemide 20 MG/2 ML VIAL IVPUSH ONE (08:35)
[2021-08-12] MEDS: Metoprolol Tartrate 25 MG Tab PO SCH ×3 (09:10→20:44)
[2021-08-12] MEDS: Dexamethasone 4 MG/ML SDV IVPUSH SCH (09:27)
[2021-08-12] MEDS: Pantoprazole 40 MG Vial IVPUSH SCH (09:31)
[2021-08-12] MEDS: Doxycycline 100 MG in Sodium Chloride 0.9% 100 ML IV SCH ×2 (09:33→20:48)
[2021-08-12] MEDS: Enoxaparin 120 MG/0.8 ML Syringe SUBCUT SCH ×2 (09:48→22:32)
[2021-08-12] MEDS: Heparin Sodium 5,000 UNITS in Sodium Chloride 0.9% 500 ML IV SCH (10:32)
[2021-08-12] MEDS: cefTRIAXone 1 GM in Sodium Chloride 0.9% 50 ML IV SCH (10:35)
--- NOTE | 2021-08-12 13:11 | PCM.PN ---
- General Info Date of Service: 08/12/21 Subjective Update: Mr. Loaiza to require high level of ventilatory support, but has remained relatively stable with the settings. Oxygenation has been adequate and we have been able to further decrease level of FiO2. Heart rate remains elevated above desired range, blood pressure has slowly improved over the past few days. He appears to be comfortable with current level of sedation. He is unable to provide meaningful information concerning symptoms or review of systems because of sedation and intubation. - Patient Data Vitals - Most Recent: Last Vital Signs Temp 97.7 F 08/12/21 08:00 Pulse 123 H 08/12/21 12:00 Resp 29 H 08/12/21 12:00 BP 132/82 08/12/21 12:00 Pulse Ox 91 L 08/12/21 12:00 Weight - Most Recent: 322 lb 5.053 oz I&O - Last 24 Hours: Intake & Output 08/11/21 08/12/21 08/12/21 22:59 06:59 14:59 Intake Total 640 349 Output Total 480 550 Balance 160 -201 Lab Results Last 24 Hours: Laboratory Results - last 24 hr 08/11/21 08/11/21 08/12/21 Range/Units 16:51 16:51 04:35 WBC 20.1 H (4.5-11.0) K/uL RBC 4.58 (4.30-5.90) M/uL Hgb 13.7 (12.0-15.0) g/dL Hct 44.7 (40.0-54.0) % MCV 98 (80-98) fL MCH 30 (27-31) pg MCHC 31 L (32-36) % Plt Count 446 H (150-400) K/uL Add Manual Diff Yes Neutrophils % (Manual) 86 H (36-66) % Band Neutrophils % 4 L (5-11) % Lymphocytes % (Manual) 5 L (24-44) % Monocytes % (Manual) 5 (2-6) % D-Dimer, Quantitative (0.0-500.0) ng/mL Puncture Site A-line ABG pH 7.330 L (7.350-7.450) ABG pCO2 64.7 H (35.0-42.0) mmHg ABG pO2 78.8 (75.0-100.0) mmHg ABG HCO3 33.1 H (22.0-26.0) mmol/L ABG Total CO2 29.5 H (23.0-27.0) mmol/L ABG O2 Saturation 95.1 (95.0-98.0) % ABG O2 Content 19.2 (15.0-23.0) %vol ABG Base Excess 5.4 mm/L ABG Hemoglobin 14.5 (13.5-18.0) g/dL ABG Oxyhemoglobin 93.9 % ABG Carboxyhemoglobin 0.6 (0.0-1.6) % ABG Methemoglobin 0.7 % [facility] Test A-line O2 Delivery Device Ventilator Oxygen Flow Rate L Sodium 152 H (140-148) mmol/L Potassium 4.7 (3.6-5.2) mmol/L Chloride 110 H (100-108) mmol/L Carbon Dioxide 33 H (21-32) mmol/L Anion Gap 13.7 (5.0-14.0) mmol/L BUN 45 H (7-18) mg/dL Creatinine 1.3 (0.8-1.3) mg/dL Est Cr Clr Drug Dosing 76.15 mL/min Estimated GFR (MDRD) 56 L (>60) Glucose 148 H (74-106) mg/dL Calcium 7.8 L (8.5-10.1) mg/dL Magnesium (1.8-2.4) mg/dL Total Bilirubin (0.2-1.0) mg/dL AST (15-37) U/L ALT (12-78) U/L Alkaline Phosphatase (46-116) U/L C-Reactive Protein (0.0-0.3) mg/dL Total Protein (6.4-8.2) g/dL Albumin (3.4-5.0) g/dL Globulin (2.3-3.5) g/dL Albumin/Globulin Ratio (1.2-2.2) Digoxin (0.90-2.00) ng/mL 08/12/21 08/12/21 08/12/21 Range/Units 04:35 04:35 04:35 WBC (4.5-11.0) K/uL RBC (4.30-5.90) M/uL Hgb (12.0-15.0) g/dL Hct (40.0-54.0) % MCV (80-98) fL MCH (27-31) pg MCHC (32-36) % Plt Count (150-400) K/uL Add Manual Diff Neutrophils % (Manual) (36-66) % Band Neutrophils % (5-11) % Lymphocytes % (Manual) (24-44) % Monocytes % (Manual) (2-6) % D-Dimer, Quantitative 6357.14 H (0.0-500.0) ng/mL Puncture Site Line ABG pH 7.332 L (7.350-7.450) ABG pCO2 63.6 H (35.0-42.0) mmHg ABG pO2 85.0 (75.0-100.0) mmHg ABG HCO3 32.7 H (22.0-26.0) mmol/L ABG Total CO2 29.2 H (23.0-27.0) mmol/L ABG O2 Saturation 96.3 (95.0-98.0) % ABG O2 Content 18.9 (15.0-23.0) %vol ABG Base Excess 5.1 mm/L ABG Hemoglobin 14.2 (13.5-18.0) g/dL ABG Oxyhemoglobin 94.4 % ABG Carboxyhemoglobin 1.2 (0.0-1.6) % ABG Methemoglobin 0.8 % [facility] Test O2 Delivery Device Ventilator Oxygen Flow Rate L Sodium 152 H (140-148) mmol/L Potassium 5.4 H (3.6-5.2) mmol/L Chloride 111 H (100-108) mmol/L Carbon Dioxide 34 H (21-32) mmol/L Anion Gap 12.4 (5.0-14.0) mmol/L BUN 48 H (7-18) mg/dL Creatinine 1.2 (0.8-1.3) mg/dL Est Cr Clr Drug Dosing 82.50 mL/min Estimated GFR (MDRD) > 60 (>60) Glucose 137 H (74-106) mg/dL Calcium 7.6 L (8.5-10.1) mg/dL Magnesium 4.2 H (1.8-2.4) mg/dL Total Bilirubin 1.3 H (0.2-1.0) mg/dL AST 90 H (15-37) U/L ALT 60 (12-78) U/L Alkaline Phosphatase 135 H (46-116) U/L C-Reactive Protein (0.0-0.3) mg/dL Total Protein 6.6 (6.4-8.2) g/dL Albumin 1.9 L (3.4-5.0) g/dL Globulin 4.7 H (2.3-3.5) g/dL Albumin/Globulin Ratio 0.4 L (1.2-2.2) Digoxin 0.76 L (0.90-2.00) ng/mL 08/12/21 Range/Units 04:35 WBC (4.5-11.0) K/uL RBC (4.30-5.90) M/uL Hgb (12.0-15.0) g/dL Hct (40.0-54.0) % MCV (80-98) fL MCH (27-31) pg MCHC (32-36) % Plt Count (150-400) K/uL Add Manual Diff Neutrophils % (Manual) (36-66) % Band Neutrophils % (5-11) % Lymphocytes % (Manual) (24-44) % Monocytes % (Manual) (2-6) % D-Dimer, Quantitative (0.0-500.0) ng/mL Puncture Site ABG pH (7.350-7.450) ABG pCO2 (35.0-42.0) mmHg ABG pO2 (75.0-100.0) mmHg ABG HCO3 (22.0-26.0) mmol/L ABG Total CO2 (23.0-27.0) mmol/L ABG O2 Saturation (95.0-98.0) % ABG O2 Content (15.0-23.0) %vol ABG Base Excess mm/L ABG Hemoglobin (13.5-18.0) g/dL ABG Oxyhemoglobin % ABG Carboxyhemoglobin (0.0-1.6) % ABG Methemoglobin % [facility] Test O2 Delivery Device Oxygen Flow Rate L Sodium (140-148) mmol/L Potassium (3.6-5.2) mmol/L Chloride (100-108) mmol/L Carbon Dioxide (21-32) mmol/L Anion Gap (5.0-14.0) mmol/L BUN (7-18) mg/dL Creatinine (0.8-1.3) mg/dL Est Cr Clr Drug Dosing mL/min Estimated GFR (MDRD) (>60) Glucose (74-106) mg/dL Calcium (8.5-10.1) mg/dL Magnesium (1.8-2.4) mg/dL Total Bilirubin (0.2-1.0) mg/dL AST (15-37) U/L ALT (12-78) U/L Alkaline Phosphatase (46-116) U/L C-Reactive Protein 17.62 H (0.0-0.3) mg/dL Total Protein (6.4-8.2) g/dL Albumin (3.4-5.0) g/dL Globulin (2.3-3.5) g/dL Albumin/Globulin Ratio (1.2-2.2) Digoxin (0.90-2.00) ng/mL [facility] Results Last 24 Hours: Microbiology 08/07/21 11:10 Aerobic Blood Culture - Final Blood - Arterial Line - Direct Stick NO GROWTH AFTER 5 DAYS Anaerobic Blood Culture - Final NO GROWTH AFTER 5 DAYS 08/07/21 11:00 Aerobic Blood Culture - Final Blood - Arm, Right NO GROWTH AFTER 5 DAYS Anaerobic Blood Culture - Final NO GROWTH AFTER 5 DAYS Med Orders - Current: Current Medications Acetaminophen (Acetaminophen 325 Mg Tab) 650 mg PO Q4H PRN PRN Reason: Pain (Mild 1-3)/fever Last Admin: 08/08/21 20:01 Dose: 325 mg Documented by: Albuterol (Albuterol 8 Gm Inhaler) 0 gm INH ASDIRECTED PRN PRN Reason: Shortness of Breath Last Admin: 08/09/21 05:53 Dose: 1 puff Documented by: Baricitinib (Baricitinib 2 Mg Tab) 4 mg PO DAILY [facility]ERT[facility] Stop: 08/20/21 09:01 Last Admin: 08/12/21 09:28 Dose: 4 mg Documented by: Benzonatate (Benzonatate 100 Mg Cap) 100 mg PO Q6H PRN PRN Reason: Cough Last Admin: 08/08/21 20:01 Dose: 100 mg Documented by: Dexamethasone (Dexamethasone 4 Mg/Ml Sdv) 6 mg IVPUSH Q24H [facility] AL[facility]ERTO Last Admin: 08/12/21 09:27 Dose: 6 mg Documented by: Dimethicone/Zinc Oxide (Dimethicone 20%/Zinc Oxide 25% 56 Gm Sharon Bottle) 1 gm TOP ASDIRECTED PRN PRN Reason: groin Enoxaparin Sodium (Enoxaparin 120 Mg/0.8 Ml Syringe) 110 mg SUBCUT Q12H [facility] Last Admin: 08/12/21 09:48 Dose: 110 mg Documented by: Doxycycline Hyclate 100 mg/ (Sodium Chloride) 100 mls @ 100 mls/hr IV Q12H [facility] Last Admin: 08/12/21 09:33 Dose: 100 mls/hr Documented by: Ceftriaxone Sodium 1 gm/ (Sodium Chloride) 50 mls @ 100 mls/hr IV Q24H [facility] Last Admin: 08/12/21 10:35 Dose: 100 mls/hr Documented by: Heparin Sodium (Porcine) 5,000 (units/ Sodium Chloride) 501 mls @ 5 mls/hr IV Q72H [facility] Last Admin: 08/12/21 10:32 Dose: 5 mls/hr Documented by: Propofol (Diprivan 100 Ml) 100 mls @ 4.042 mls/hr IV TITRATE [facility]; Protocol Last Admin: 08/12/21 10:08 Dose: 28 mcg/kg/min, 22.632 mls/hr Documented by: Lorazepam (Lorazepam 0.5 Mg Tab) 0.5 mg PO Q4H PRN PRN Reason: Anxiety Last Admin: 08/09/21 08:11 Dose: 0.5 mg Documented by: Metoprolol Tartrate (Metoprolol Tartrate 25 Mg Tab) 12.5 mg PO Q6H [facility] Last Admin: 08/12/21 09:10 Dose: 12.5 mg Documented by: Mometasone Furoate/Formoterol Fumar (Formoterol/Mometasone 200-5 Mcg 8.8 Gm Inhaler) 2 puff IH BIDRT [facility] Last Admin: 08/12/21 07:12 Dose: 2 puff Documented by: Morphine Sulfate (Morphine 2 Mg/Ml Syringe) 2 mg IVPUSH Q2H PRN PRN Reason: [employer]GER Last Admin: 08/09/21 08:11 Dose: 2 mg Documented by: Ondansetron HCl (Ondansetron 4 Mg/2 Ml Sdv) 4 mg IV Q4H PRN PRN Reason: Nausea/Vomiting Pantoprazole Sodium (Pantoprazole 40 Mg Vial) 40 mg IVPUSH DAILY [facility] Last Admin: 08/12/21 09:31 Dose: 40 mg Documented by: Polyethylene Glycol (Polyethylene Glycol 3350 Powder 17 Gm Packet) 17 gm PO DAILY PRN PRN Reason: Constipation Sodium Chloride (Sodium Chloride 0.9% 10 Ml Syringe) 10 ml FLUSH ASDIRECTED PRN PRN Reason: Keep Vein Open Discontinued Medications Acetaminophen (Acetaminophen 325 Mg Tab) Confirm Administered Dose 325 mg .ROUTE .STK-MED ONE Stop: 08/08/21 20:16 Last Admin: 08/08/21 20:31 Dose: 325 mg Documented by: Azithromycin (Azithromycin 250 Mg Tab) 250 mg PO DAILY [facility] Last Admin: 08/08/21 00:02 Dose: 500 mg Documented by: Azithromycin (Azithromycin 250 Mg Tab) 250 mg PO BEDTIME [facility] AL[facility]ERT[facility] Stop: 08/11/21 21:01 Baricitinib (Baricitinib 2 Mg Tab) 2 mg PO DAILY [facility] Stop: 08/20/21 09:01 Last Admin: 08/09/21 10:50 Dose: Not Given Documented by: Baricitinib (Baricitinib 2 Mg Tab) 4 mg PO DAILY [facility] ALBERTO Stop: 08/20/21 09:01 Last Admin: 08/12/21 09:09 Dose: 4 mg Documented by: Baricitinib (Baricitinib 2 Mg Tab) 2 mg PO DAILY [facility] Stop: 08/20/21 09:01 Last Admin: 08/11/21 09:36 Dose: 2 mg Documented by: Digoxin (Digoxin 500 Mcg/2 Ml Amp) 250 mcg IVPUSH ONETIME ONE Stop: 08/11/21 03:47 Last Admin: 08/11/21 03:57 Dose: 250 mcg Documented by: Digoxin (Digoxin 500 Mcg/2 Ml Amp) 250 mcg IVPUSH ONETIME ONE Stop: 08/11/21 11:27 Last Admin: 08/11/21 12:51 Dose: 250 mcg Documented by: Digoxin (Digoxin 500 Mcg/2 Ml Amp) 250 mcg IVPUSH ONETIME ONE Stop: 08/12/21 08:28 Last Admin: 08/12/21 09:20 Dose: 250 mcg Documented by: Enoxaparin Sodium (Enoxaparin 40 Mg/0.4 Ml Syringe) 40 mg SUBCUT Q24H [facility] Last Admin: 08/09/21 16:51 Dose: 40 mg Documented by: Enoxaparin Sodium (Enoxaparin 150 Mg/1 Ml Syringe) 150 mg SUBCUT Q12H [facility] Last Admin: 08/11/21 08:32 Dose: 150 mg Documented by: Furosemide (Furosemide 20 Mg/2 Ml Vial) 20 mg IVPUSH NOW ONE Stop: 08/09/21 09:01 Last Admin: 08/09/21 09:14 Dose: 20 mg Documented by: Furosemide (Furosemide 20 Mg/2 Ml Vial) 20 mg IVPUSH NOW ONE Stop: 08/10/21 08:31 Last Admin: 08/10/21 09:29 Dose: 20 mg Documented by: Furosemide (Furosemide 20 Mg/2 Ml Vial) 20 mg IVPUSH NOW ONE Stop: 08/12/21 08:36 Last Admin: 08/12/21 09:15 Dose: 20 mg Documented by: Remdesivir 200 mg/ Sodium (Chloride) 250 mls @ 250 mls/hr IV ONETIME ONE Stop: 08/07/21 13:59 Last Admin: 08/07/21 13:09 Dose: 250 mls/hr Documented by: Remdesivir 100 mg/ Sodium (Chloride) 100 mls @ 100 mls/hr IV Q24H [facility] Stop: 08/11/21 13:59 Last Admin: 08/08/21 15:17 Dose: 100 mls/hr Documented by: Doxycycline Hyclate 100 mg/ (Sodium Chloride) 100 mls @ 100 mls/hr IV NOW ONE Stop: 08/08/21 00:59 Last Admin: 08/08/21 00:02 Dose: 100 mls/hr Documented by: Propofol (Diprivan 100 Ml) Confirm Administered Dose 100 mls @ as directed .ROUTE .STK-MED ONE Stop: 08/09/21 09:36 Last Admin: 08/09/21 10:49 Dose: Not Given Documented by: Sodium Chloride (Normal Saline) 100 mls @ 4 mls/sec IV ASDIRECTED [facility] Stop: 08/10/21 09:16 Last Admin: 08/10/21 10:51 Dose: 4 mls/sec Documented by: Iopamidol (Iopamidol 755 Mg/Ml 100 Ml Bottle) 100 ml IV . DIRECTED ONE Stop: 08/10/21 09:15 Last Admin: 08/10/21 10:51 Dose: 100 ml Documented by: Lorazepam (Lorazepam 2 Mg/Ml Sdv) 1 mg IVPUSH ONETIME ONE Stop: 08/09/21 04:47 Last Admin: 08/09/21 04:52 Dose: 1 mg Documented by: Lorazepam (Lorazepam 2 Mg/Ml Sdv) Confirm Administered Dose 2 mg .ROUTE .STK-MED ONE Stop: 08/09/21 04:51 Last Admin: 08/09/21 05:27 Dose: Not Given Documented by: Methylprednisolone Sodium Succinate (Methylprednisolone Sodium Succinate 125 Mg/2 Ml Sdv) 125 mg IVPUSH ONETIME ONE Stop: 08/07/21 11:07 Last Admin: 08/07/21 11:09 Dose: 125 mg Documented by: Morphine Sulfate (Morphine 2 Mg/Ml Syringe) Confirm Administered Dose 2 mg .R OUTE .STK-MED ONE Stop: 08/09/21 06:02 Last Admin: 08/09/21 06:21 Dose: Not Given Documented by: Potassium Chloride (Potassium Chloride 20 Meq Tab.Er) 40 meq PO ONETIME ONE Stop: 08/08/21 09:31 Last Admin: 08/08/21 09:58 Dose: 40 meq Documented by: Potassium Chloride (Potassium Chloride 20 Meq Tab.Er) 40 meq PO ONETIME ONE Stop: 08/08/21 17:01 Last Admin: 08/08/21 17:08 Dose: 40 meq Documented by: Propofol (Propofol 200 Mg/20 Ml Sdv) 200 mg .ROUTE .STK-MED ONE Stop: 08/09/21 10:01 Sodium Polystyrene Sulfonate (Sodium Polystyrene Sulfonate 15 Gm/60 Ml Susp 60 Ml Bot) 30 gm PO ONETIME ONE Stop: 08/10/21 16:46 Last Admin: 08/10/21 17:59 Dose: 30 gm Documented by: Sodium Polystyrene Sulfonate (Sodium Polystyrene Sulfonate 15 Gm/60 Ml Susp 60 Ml Bot) 30 gm PO ONETIME ONE Stop: 08/12/21 08:23 Last Admin: 08/12/21 09:20 Dose: 30 gm Documented by: Succinylcholine Chloride (Succinylcholine 200 Mg/10 Ml Mdv) 200 mg .ROUTE .STK- MED ONE Stop: 08/09/21 10:01 Tamsulosin HCl (Tamsulosin 0.4 Mg Cap.Er) 0.4 mg PO BEDTIME [facility] ALBERTO Last Admin: 08/09/21 21:13 Dose: Not Given Documented by: - Exam Quality Assessment: Supplemental Oxygen (Ventilator), Central Line/PICC, Urine Catheter, DVT Prophylaxis Central Line Total Time: 1Days 14Hours Urinary Catheter Total Time: 4Days 4Hours General: Sedated, Lethargic HEENT: Pupils Equal Lungs: Crackles, Rhonchi. No: Rales, Wheezing Cardiovascular: Regular Rhythm, No Murmurs, Tachycardia GI/Abdominal Exam: Soft, Non-Tender, No Organomegaly, No Distention Extremities: Non-Tender, No Pedal Edema Skin: Warm, Dry, Intact - Patient Data Lab Results Last 24 hrs: Laboratory Results - last 24 hr 08/11/21 08/11/21 08/12/21 Range/Units 16:51 16:51 04:35 WBC 20.1 H (4.5-11.0) K/uL RBC 4.58 (4.30-5.90) M/uL Hgb 13.7 (12.0-15.0) g/dL Hct 44.7 (40.0-54.0) % MCV 98 (80-98) fL MCH 30 (27-31) pg MCHC 31 L (32-36) % Plt Count 446 H (150-400) K/uL Add Manual Diff Yes Neutrophils % (Manual) 86 H (36-66) % Band Neutrophils % 4 L (5-11) % Lymphocytes % (Manual) 5 L (24-44) % Monocytes % (Manual) 5 (2-6) % D-Dimer, Quantitative (0.0-500.0) ng/mL Puncture Site A-line ABG pH 7.330 L (7.350-7.450) ABG pCO2 64.7 H (35.0-42.0) mmHg ABG pO2 78.8 (75.0-100.0) mmHg ABG HCO3 33.1 H (22.0-26.0) mmol/L ABG Total CO2 29.5 H (23.0-27.0) mmol/L ABG O2 Saturation 95.1 (95.0-98.0) % ABG O2 Content 19.2 (15.0-23.0) %vol ABG Base Excess 5.4 mm/L ABG Hemoglobin 14.5 (13.5-18.0) g/dL ABG Oxyhemoglobin 93.9 % ABG Carboxyhemoglobin 0.6 (0.0-1.6) % ABG Methemoglobin 0.7 % [place] Test A-line O2 Delivery Device Ventilator Oxygen Flow Rate L Sodium 152 H (140-148) mmol/L Potassium 4.7 (3.6-5.2) mmol/L Chloride 110 H (100-108) mmol/L Carbon Dioxide 33 H (21-32) mmol/L Anion Gap 13.7 (5.0-14.0) mmol/L BUN 45 H (7-18) mg/dL Creatinine 1.3 (0.8-1.3) mg/dL Est Cr Clr Drug Dosing 76.15 mL/min Estimated GFR (MDRD) 56 L (>60) Glucose 148 H (74-106) mg/dL Calcium 7.8 L (8.5-10.1) mg/dL Magnesium (1.8-2.4) mg/dL Total Bilirubin (0.2-1.0) mg/dL AST (15-37) U/L ALT (12-78) U/L Alkaline Phosphatase (46-116) U/L C-Reactive Protein (0.0-0.3) mg/dL Total Protein (6.4-8.2) g/dL Albumin (3.4-5.0) g/dL Globulin (2.3-3.5) g/dL Albumin/Globulin Ratio (1.2-2.2) Digoxin (0.90-2.00) ng/mL 08/12/21 08/12/21 08/12/21 Range/Units 04:35 04:35 04:35 WBC (4.5-11.0) K/uL RBC (4.30-5.90) M/uL Hgb (12.0-15.0) g/dL Hct (40.0-54.0) % MCV (80-98) fL MCH (27-31) pg MCHC (32-36) % Plt Count (150-400) K/uL Add Manual Diff Neutrophils % (Manual) (36-66) % Band Neutrophils % (5-11) % Lymphocytes % (Manual) (24-44) % Monocytes % (Manual) (2-6) % D-Dimer, Quantitative 6357.14 H (0.0-500.0) ng/mL Puncture Site Line ABG pH 7.332 L (7.350-7.450) ABG pCO2 63.6 H (35.0-42.0) mmHg ABG pO2 85.0 (75.0-100.0) mmHg ABG HCO3 32.7 H (22.0-26.0) mmol/L ABG Total CO2 29.2 H (23.0-27.0) mmol/L ABG O2 Saturation 96.3 (95.0-98.0) % ABG O2 Content 18.9 (15.0-23.0) %vol ABG Base Excess 5.1 mm/L ABG Hemoglobin 14.2 (13.5-18.0) g/dL ABG Oxyhemoglobin 94.4 % ABG Carboxyhemoglobin 1.2 (0.0-1.6) % ABG Methemoglobin 0.8 % [facility] Test O2 Delivery Device Ventilator Oxygen Flow Rate L Sodium 152 H (140-148) mmol/L Potassium 5.4 H (3.6-5.2) mmol/L Chloride 111 H (100-108) mmol/L Carbon Dioxide 34 H (21-32) mmol/L Anion Gap 12.4 (5.0-14.0) mmol/L BUN 48 H (7-18) mg/dL Creatinine 1.2 (0.8-1.3) mg/dL Est Cr Clr Drug Dosing 82.50 mL/min Estimated GFR (MDRD) > 60 (>60) Glucose 137 H (74-106) mg/dL Calcium 7.6 L (8.5-10.1) mg/dL Magnesium 4.2 H (1.8-2.4) mg/dL Total Bilirubin 1.3 H (0.2-1.0) mg/dL AST 90 H (15-37) U/L ALT 60 (12-78) U/L Alkaline Phosphatase 135 H (46-116) U/L C-Reactive Protein (0.0-0.3) mg/dL Total Protein 6.6 (6.4-8.2) g/dL Albumin 1.9 L (3.4-5.0) g/dL Globulin 4.7 H (2.3-3.5) g/dL Albumin/Globulin Ratio 0.4 L (1.2-2.2) Digoxin 0.76 L (0.90-2.00) ng/mL 08/12/21 Range/Units 04:35 WBC (4.5-11.0) K/uL RBC (4.30-5.90) M/uL Hgb (12.0-15.0) g/dL Hct (40.0-54.0) % MCV (80-98) fL MCH (27-31) pg MCHC (32-36) % Plt Count (150-400) K/uL Add Manual Diff Neutrophils % (Manual) (36-66) % Band Neutrophils % (5-11) % Lymphocytes % (Manual) (24-44) % Monocytes % (Manual) (2-6) % D-Dimer, Quantitative (0.0-500.0) ng/mL Puncture Site ABG pH (7.350-7.450) ABG pCO2 (35.0-42.0) mmHg ABG pO2 (75.0-100.0) mmHg ABG HCO3 (22.0-26.0) mmol/L ABG Total CO2 (23.0-27.0) mmol/L ABG O2 Saturation (95.0-98.0) % ABG O2 Content (15.0-23.0) %vol ABG Base Excess mm/L ABG Hemoglobin (13.5-18.0) g/dL ABG Oxyhemoglobin % ABG Carboxyhemoglobin (0.0-1.6) % ABG Methemoglobin % [facility] Test O2 Delivery Device Oxygen Flow Rate L Sodium (140-148) mmol/L Potassium (3.6-5.2) mmol/L Chloride (100-108) mmol/L Carbon Dioxide (21-32) mmol/L Anion Gap (5.0-14.0) mmol/L BUN (7-18) mg/dL Creatinine (0.8-1.3) mg/dL Est Cr Clr Drug Dosing mL/min Estimated GFR (MDRD) (>60) Glucose (74-106) mg/dL Calcium (8.5-10.1) mg/dL Magnesium (1.8-2.4) mg/dL Total Bilirubin (0.2-1.0) mg/dL AST (15-37) U/L ALT (12-78) U/L Alkaline Phosphatase (46-116) U/L C-Reactive Protein 17.62 H (0.0-0.3) mg/dL Total Protein (6.4-8.2) g/dL Albumin (3.4-5.0) g/dL Globulin (2.3-3.5) g/dL Albumin/Globulin Ratio (1.2-2.2) Digoxin (0.90-2.00) ng/mL Result Diagrams: 08/12/21 04:35 08/12/21 04:35 [facility] Results Last 24 hrs: Microbiology 08/07/21 11:10 Aerobic Blood Culture - Final Blood - Arterial Line - Direct Stick NO GROWTH AFTER 5 DAYS Anaerobic Blood Culture - Final NO GROWTH AFTER 5 DAYS 08/07/21 11:00 Aerobic Blood Culture - Final Blood - Arm, Right NO GROWTH AFTER 5 DAYS Anaerobic Blood Culture - Final NO GROWTH AFTER 5 DAYS Sepsis Event Note - Evaluation Sepsis Screening Result: Severe Sepsis Risk - Focused Exam Vital Signs: Vital Signs Temp Pulse Pulse Resp BP BP Pulse Ox 08/12/21 12:00 123 H 29 H 132/82 91 L 08/12/21 11:00 121 H 30 H 132/78 90 L 08/12/21 10:00 119 H 29 H 127/80 89 L 08/12/21 09:20 127 H 08/12/21 09:10 127 H 114/74 08/12/21 09:00 126 H 28 H 114/74 90 L 08/12/21 08:00 97.7 F 122 H 29 H 121/69 92 L 08/12/21 07:00 121 H 30 H 124/73 93 L 08/12/21 06:00 121 H 29 H 121/66 93 L 08/12/21 05:00 119 H 29 H 125/81 95 08/12/21 04:00 97.2 F 118 H 30 H 131/73 95 08/12/21 03:00 118 H 28 H 121/82 95 08/12/21 02:00 116 H 28 H 122/70 96 - Problem List Review Problem List Initiated/Reviewed/Updated: Yes - My Orders Last 24 Hours: My Active Orders 08/11/21 22:00 Enoxaparin [Lovenox] 110 mg SUBCUT Q12H 08/12/21 05:00 Chest 1V Frontal [CR] DAILY 08/12/21 08:30 Metoprolol Tartrate [Lopressor] 12.5 mg PO Q6H 08/12/21 09:00 Baricitinib [Olumiant] 4 mg PO DAILY 08/12/21 17:00 BASIC METABOLIC PANEL,BMP [CHEM] Stat BLOOD GAS ARTERIAL [BG] Stat 08/13/21 05:00 Chest 1V Frontal [CR] DAILY BLOOD GAS ARTERIAL [BG] Timed CBC WITH AUTO DIFF [HEME] Timed COMPREHENSIVE METABOLIC PN,CMP [CHEM] Timed DIGOXIN [CHEM] Timed 08/13/21 08:00 Echo Comp wo Cont [US] Urgent 08/14/21 05:00 Chest 1V Frontal [CR] DAILY - Plan Plan:: ASSESSMENT AND PLAN COVID-19 INFECTION-with bilateral pneumonia and acute hypoxic respiratory failure. Current ventilator settings; FiO2 of 65%, PEEP of 18, tidal volume of 360, rate of 28. Stable with current settings, FiO2 has been decreased to 65%. -Mechanical ventilation -Continue antibiotic therapy with doxycycline and ceftriaxone, today is day 5 of 7 -Limit IV fluids -Prone positioning -Remdesivir has been discontinued -Dexamethasone 6 mg IV daily, today is day 6 -Baricitinib 4 mg p.o. daily, today is day 6 of 14 -IV propofol for sedation ACUTE HYPOXIC RESPIRATORY FAILURE-secondary to COVID-19 infection and underlying COPD. -Continue current ventilator management BILATERAL PULMONARY EMBOLI-described as primarily nonocclusive on CT scan report. Evaluation yesterday was negative for any evidence of DIC -Lovenox 110 mg subcutaneous every 12 hours ARDS-secondary to COVID-19 infection -Management as above COPD-no evidence of acute exacerbation -Continue outpatient medications CHRONIC KIDNEY DISEASE-renal function stable over the past few days -Closely monitor urine output and renal function -Furosemide 20 mg IV today, reassess in a.m. BLADDER OUTLET OBSTRUCTION-Paulino catheter MAINTENANCE ISSUES -DVT prophylaxis; Lovenox as above -GI prophylaxis; Protonix 40 mg IV daily -Paulino catheter; Paulino catheter placed because of urinary retention, now needed for close monitoring of urine output -Nutrition; n.p.o. -Nicotine dependence; not required CODE STATUS-FULL CODE ADMISSION STATUS-patient will be admitted to inpatient status, expect at least a 2 night hospital stay for evaluation and management of problems as outlined above. At the time of this admission I do not reasonably expected evaluation and management of this problem will require more than a 96 hour hospital stay. DISPOSITION-anticipate discharge to home after the hospital stay. PRIMARY CARE PROVIDER-patient does not currently have a primary care provider
[2021-08-12] MEDS: Dextrose 5% in Water 1,000 ML IV SCH (18:46)
[2021-08-13] MEDS: Metoprolol Tartrate 25 MG Tab PO SCH ×4 (02:08→20:00)
[2021-08-13] MEDS: propofoL 100 ML IV SCH ×6 (03:07→23:53)
[2021-08-13] MEDS: Formoterol/Mometasone 200-5 MCG 8.8 GM Inhaler IH SCH ×2 (07:54→20:08)
[2021-08-13] MEDS: Doxycycline 100 MG in Sodium Chloride 0.9% 100 ML IV SCH ×2 (09:23→21:44)
--- NOTE | 2021-08-13 09:28 | CR ---
CHEST: Portable 08/10/2021 at 3:55 PM CLINICAL HISTORY:Change in bowel gas values COMPARISON:Earlier same day FINDINGS: Diffuse bilateral pulmonary infiltrates persist. There is now a PICC line from the right upper extremity. Tip is in the superior vena cava atrial junction region. Endotracheal tube is 7 cm from the [place]. There is an NG tube in place. IMPRESSION: Diffuse bilateral pulmonary infiltrates are similar to prior study Tubes and catheters described above
[2021-08-13] MEDS: Dexamethasone 4 MG/ML SDV IVPUSH SCH (09:32)
[2021-08-13] MEDS: Enoxaparin 120 MG/0.8 ML Syringe SUBCUT SCH ×2 (09:33→21:45)
[2021-08-13] MEDS: Pantoprazole 40 MG Vial IVPUSH SCH (09:33)
--- NOTE | 2021-08-13 09:34 | CR ---
CHEST: Portable 08/11/2021 at 2:38 AM CLINICAL HISTORY:Endotracheal intubation COMPARISON:08/10/2021 FINDINGS: Endotracheal tube right PICC line and NG tube all appear in good position. Patient is diffuse bilateral pulmonary infiltrates without significant interval change. Impression: No significant change from previous study
--- NOTE | 2021-08-13 09:45 | CR ---
CHEST: Portable 08/12/2021 at 4:39 AM CLINICAL HISTORY:Endotracheal tube COMPARISON:08/11/2021 FINDINGS: There is an endotracheal tube in the midtrachea approximately 6 cm from the [place]. Right PICC line catheter is in good position. NG tube is in place. Diffuse bilateral pulmonary infiltrates are similar to prior study. IMPRESSION: Tubes and catheters as above Persistent diffuse bilateral pulmonary infiltrates similar to prior study
--- NOTE | 2021-08-13 10:06 | PCM.PN ---
- General Info Date of Service: 08/13/21 Subjective Update: No acute events overnight. Patient remains intubated and sedated. FiO2 is down to 60%. Still mildly tachycardic but slightly improved. No fevers. Urine outp ut has been adequate. Sodium level slowly rising. pH on the ABGs is normal but he does have moderate hypercapnia. Plateau pressure was 27 this morning. - Review of Systems General: Denies: Fever - Patient Data Vitals - Most Recent: Last Vital Signs Temp 36.4 C 08/13/21 08:00 Pulse 111 H 08/13/21 08:00 Resp 28 H 08/13/21 08:00 BP 109/61 08/13/21 08:00 Pulse Ox 89 L 08/13/21 08:00 Weight - Most Recent: 144.3 kg I&O - Last 24 Hours: Intake & Output 08/12/21 08/13/21 08/13/21 22:59 06:59 14:59 Intake Total 531 872 300 Output Total 160 650 110 Balance 371 222 190 Lab Results Last 24 Hours: Laboratory Results - last 24 hr 08/12/21 08/12/21 08/13/21 Range/Units 16:45 16:45 04:40 WBC 16.9 H (4.5-11.0) K/uL RBC 3.80 L (4.30-5.90) M/uL Hgb 12.9 (12.0-15.0) g/dL Hct 39.0 L (40.0-54.0) % MCV 103 H (80-98) fL MCH 34 H (27-31) pg MCHC 33 (32-36) % Plt Count 485 H (150-400) K/uL Add Manual Diff Yes Neutrophils % (Manual) 86 H (36-66) % Band Neutrophils % 3 L (5-11) % Lymphocytes % (Manual) 7 L (24-44) % Monocytes % (Manual) 3 (2-6) % Eosinophils % (Manual) 1 L (2-4) % Polychromasia Puncture Site A-line ABG pH 7.308 L (7.350-7.450) ABG pCO2 73.3 H* (35.0-42.0) mmHg ABG pO2 65.5 L (75.0-100.0) mmHg ABG HCO3 35.6 H (22.0-26.0) mmol/L ABG Total CO2 32.3 H (23.0-27.0) mmol/L ABG O2 Saturation 92.0 L (95.0-98.0) % ABG O2 Content 17.2 (15.0-23.0) %vol ABG Base Excess 7.0 mm/L ABG Hemoglobin 13.6 (13.5-18.0) g/dL ABG Oxyhemoglobin 89.8 % ABG Carboxyhemoglobin 1.2 (0.0-1.6) % ABG Methemoglobin 1.2 % [place] Test A-line O2 Delivery Device Ventilator Oxygen Flow Rate L Sodium 155 H (140-148) mmol/L Potassium 5.0 (3.6-5.2) mmol/L Chloride 114 H (100-108) mmol/L Carbon Dioxide 37 H (21-32) mmol/L Anion Gap 9.0 (5.0-14.0) mmol/L BUN 51 H (7-18) mg/dL Creatinine 1.4 H (0.8-1.3) mg/dL Est Cr Clr Drug Dosing 70.71 mL/min Estimated GFR (MDRD) 52 L (>60) Glucose 149 H (74-106) mg/dL Calcium 7.8 L (8.5-10.1) mg/dL Total Bilirubin (0.2-1.0) mg/dL AST (15-37) U/L ALT (12-78) U/L Alkaline Phosphatase (46-116) U/L Total Protein (6.4-8.2) g/dL Albumin (3.4-5.0) g/dL Globulin (2.3-3.5) g/dL Albumin/Globulin Ratio (1.2-2.2) Digoxin (0.90-2.00) ng/mL 08/13/21 08/13/21 Range/Units 04:40 04:40 WBC (4.5-11.0) K/uL RBC (4.30-5.90) M/uL Hgb (12.0-15.0) g/dL Hct (40.0-54.0) % MCV (80-98) fL MCH (27-31) pg MCHC (32-36) % Plt Count (150-400) K/uL Add Manual Diff Neutrophils % (Manual) (36-66) % Band Neutrophils % (5-11) % Lymphocytes % (Manual) (24-44) % Monocytes % (Manual) (2-6) % Eosinophils % (Manual) (2-4) % Polychromasia Puncture Site Line ABG pH 7.375 (7.350-7.450) ABG pCO2 61.8 H (35.0-42.0) mmHg ABG pO2 69.6 L (75.0-100.0) mmHg ABG HCO3 35.2 H (22.0-26.0) mmol/L ABG Total CO2 31.7 H (23.0-27.0) mmol/L ABG O2 Saturation 94.4 L (95.0-98.0) % ABG O2 Content 16.8 (15.0-23.0) %vol ABG Base Excess 8.3 mm/L ABG Hemoglobin 13.0 L (13.5-18.0) g/dL ABG Oxyhemoglobin 91.9 % ABG Carboxyhemoglobin 1.8 H (0.0-1.6) % ABG Methemoglobin 0.9 % [place] Test O2 Delivery Device Ventilator Oxygen Flow Rate L Sodium 155 H (140-148) mmol/L Potassium 4.4 (3.6-5.2) mmol/L Chloride 114 H (100-108) mmol/L Carbon Dioxide 35 H (21-32) mmol/L Anion Gap 10.4 (5.0-14.0) mmol/L BUN 54 H (7-18) mg/dL Creatinine 1.4 H (0.8-1.3) mg/dL Est Cr Clr Drug Dosing 70.71 mL/min Estimated GFR (MDRD) 52 L (>60) Glucose 125 H (74-106) mg/dL Calcium 7.6 L (8.5-10.1) mg/dL Total Bilirubin 1.4 H (0.2-1.0) mg/dL AST 81 H (15-37) U/L ALT 58 (12-78) U/L Alkaline Phosphatase 117 H (46-116) U/L Total Protein 6.3 L (6.4-8.2) g/dL Albumin 1.8 L (3.4-5.0) g/dL Globulin 4.5 H (2.3-3.5) g/dL Albumin/Globulin Ratio 0.4 L (1.2-2.2) Digoxin 0.77 L (0.90-2.00) ng/mL Silv[facility] Results Last 24 Hours: Microbiology 08/07/21 11:10 Aerobic Blood Culture - Final Blood - Arterial Line - Direct Stick NO GROWTH AFTER 5 DAYS Anaerobic Blood Culture - Final NO GROWTH AFTER 5 DAYS 08/07/21 11:00 Aerobic Blood Culture - Final Blood - Arm, Right NO GROWTH AFTER 5 DAYS Anaerobic Blood Culture - Final NO GROWTH AFTER 5 DAYS Med Orders - Current: Current Medications Acetaminophen (Acetaminophen 325 Mg Tab) 650 mg PO Q4H PRN PRN Reason: Pain (Mild 1-3)/fever Last Admin: 08/08/21 20:01 Dose: 325 mg Documented by: Albuterol (Albuterol 8 Gm Inhaler) 0 gm INH ASDIRECTED PRN PRN Reason: Shortness of Breath Last Admin: 08/09/21 05:53 Dose: 1 puff Documented by: Baricitinib (Baricitinib 2 Mg Tab) 4 mg PO DAILY [facility] Stop: 08/20/21 09:01 Last Admin: 08/13/21 09:32 Dose: 4 mg Documented by: Benzonatate (Benzonatate 100 Mg Cap) 100 mg PO Q6H PRN PRN Reason: Cough Last Admin: 08/08/21 20:01 Dose: 100 mg Documented by: Dexamethasone (Dexamethasone 4 Mg/Ml Sdv) 6 mg IVPUSH Q24H [facility] Last Admin: 08/13/21 09:32 Dose: 6 mg Documented by: Dimethicone/Zinc Oxide (Dimethicone 20%/Zinc Oxide 25% 56 Gm [place] Bottle) 1 gm TOP ASDIRECTED PRN PRN Reason: groin Enoxaparin Sodium (Enoxaparin 120 Mg/0.8 Ml Syringe) 110 mg SUBCUT Q12H [facility] Last Admin: 08/13/21 09:33 Dose: 110 mg Documented by: Doxycycline Hyclate 100 mg/ (Sodium Chloride) 100 mls @ 100 mls/hr IV Q12H [facility] Last Admin: 08/13/21 09:23 Dose: 100 mls/hr Documented by: Ceftriaxone Sodium 1 gm/ (Sodium Chloride) 50 mls @ 100 mls/hr IV Q24H [facility] Last Admin: 08/12/21 10:35 Dose: 100 mls/hr Documented by: Heparin Sodium (Porcine) 5,000 (units/ Sodium Chloride) 501 mls @ 5 mls/hr IV Q72H [facility] Last Admin: 08/12/21 10:32 Dose: 5 mls/hr Documented by: Propofol (Diprivan 100 Ml) 100 mls @ 4.042 mls/hr IV TITRATE [facility]; Protocol Last Admin: 08/13/21 07:35 Dose: 28 mcg/kg/min, 22.632 mls/hr Documented by: Dextrose/Water (Dextrose 5% In Water) 1,000 mls @ 0 mls/hr IV ASDIRECTED [facility] Last Admin: 08/12/21 18:46 Dose: 25 mls/hr Documented by: Lorazepam (Lorazepam 0.5 Mg Tab) 0.5 mg PO Q4H PRN PRN Reason: Anxiety Last Admin: 08/09/21 08:11 Dose: 0.5 mg Documented by: Metoprolol Tartrate (Metoprolol Tartrate 25 Mg Tab) 12.5 mg PO Q6H [facility] Last Admin: 08/13/21 07:58 Dose: 12.5 mg Documented by: Mometasone Furoate/Formoterol Fumar (Formoterol/Mometasone 200-5 Mcg 8.8 Gm Inhaler) 2 puff IH BIDRT [facility] Last Admin: 08/13/21 07:54 Dose: 2 puff Documented by: Morphine Sulfate (Morphine 2 Mg/Ml Syringe) 2 mg IVPUSH Q2H PRN PRN Reason: [employer] Last Admin: 08/09/21 08:11 Dose: 2 mg Documented by: Ondansetron HCl (Ondansetron 4 Mg/2 Ml Sdv) 4 mg IV Q4H PRN PRN Reason: Nausea/Vomiting Pantoprazole Sodium (Pantoprazole 40 Mg Vial) 40 mg IVPUSH DAILY [facility] Last Admin: 08/13/21 09:33 Dose: 40 mg Documented by: Polyethylene Glycol (Polyethylene Glycol 3350 Powder 17 Gm Packet) 17 gm PO DAILY PRN PRN Reason: Constipation Sodium Chloride (Sodium Chloride 0.9% 10 Ml Syringe) 10 ml FLUSH ASDIRECTED PRN PRN Reason: Keep Vein Open Discontinued Medications Acetaminophen (Acetaminophen 325 Mg Tab) Confirm Administered Dose 325 mg .ROUTE .STK-MED ONE Stop: 08/08/21 20:16 Last Admin: 08/08/21 20:31 Dose: 325 mg Documented by: Azithromycin (Azithromycin 250 Mg Tab) 250 mg PO DAILY [facility] Last Admin: 08/08/21 00:02 Dose: 500 mg Documented by: Azithromycin (Azithromycin 250 Mg Tab) 250 mg PO BEDTIME [facility] Stop: 08/11/21 21:01 Baricitinib (Baricitinib 2 Mg Tab) 2 mg PO DAILY [facility] Stop: 08/20/21 09:01 Last Admin: 08/09/21 10:50 Dose: Not Given Documented by: Baricitinib (Baricitinib 2 Mg Tab) 4 mg PO DAILY [facility] Stop: 08/20/21 09:01 Last Admin: 08/12/21 09:09 Dose: 4 mg Documented by: Baricitinib (Baricitinib 2 Mg Tab) 2 mg PO DAILY [facility] Stop: 08/20/21 09:01 Last Admin: 08/11/21 09:36 Dose: 2 mg Documented by: Digoxin (Digoxin 500 Mcg/2 Ml Amp) 250 mcg IVPUSH ONETIME ONE Stop: 08/11/21 03:47 Last Admin: 08/11/21 03:57 Dose: 250 mcg Documented by: Digoxin (Digoxin 500 Mcg/2 Ml Amp) 250 mcg IVPUSH ONETIME ONE Stop: 08/11/21 11:27 Last Admin: 08/11/21 12:51 Dose: 250 mcg Documented by: Digoxin (Digoxin 500 Mcg/2 Ml Amp) 250 mcg IVPUSH ONETIME ONE Stop: 08/12/21 08:28 Last Admin: 08/12/21 09:20 Dose: 250 mcg Documented by: Enoxaparin Sodium (Enoxaparin 40 Mg/0.4 Ml Syringe) 40 mg SUBCUT Q24H [facility] Last Admin: 08/09/21 16:51 Dose: 40 mg Documented by: Enoxaparin Sodium (Enoxaparin 150 Mg/1 Ml Syringe) 150 mg SUBCUT Q12H [facility] Last Admin: 08/11/21 08:32 Dose: 150 mg Documented by: Furosemide (Furosemide 20 Mg/2 Ml Vial) 20 mg IVPUSH NOW ONE Stop: 08/09/21 09:01 Last Admin: 08/09/21 09:14 Dose: 20 mg Documented by: Furosemide (Furosemide 20 Mg/2 Ml Vial) 20 mg IVPUSH NOW ONE Stop: 08/10/21 08:31 Last Admin: 08/10/21 09:29 Dose: 20 mg Documented by: Furosemide (Furosemide 20 Mg/2 Ml Vial) 20 mg IVPUSH NOW ONE Stop: 08/12/21 08:36 Last Admin: 08/12/21 09:15 Dose: 20 mg Documented by: Remdesivir 200 mg/ Sodium (Chloride) 250 mls @ 250 mls/hr IV ONETIME ONE Stop: 08/07/21 13:59 Last Admin: 08/07/21 13:09 Dose: 250 mls/hr Documented by: Remdesivir 100 mg/ Sodium (Chloride) 100 mls @ 100 mls/hr IV Q24H [facility] Stop: 08/11/21 13:59 Last Admin: 08/08/21 15:17 Dose: 100 mls/hr Documented by: Doxycycline Hyclate 100 mg/ (Sodium Chloride) 100 mls @ 100 mls/hr IV NOW ONE Stop: 08/08/21 00:59 Last Admin: 08/08/21 00:02 Dose: 100 mls/hr Documented by: Propofol (Diprivan 100 Ml) Confirm Administered Dose 100 mls @ as directed .ROUTE .STK-MED ONE Stop: 08/09/21 09:36 Last Admin: 08/09/21 10:49 Dose: Not Given Documented by: Sodium Chloride (Normal Saline) 100 mls @ 4 mls/sec IV ASDIRECTED [facility] Stop: 08/10/21 09:16 Last Admin: 08/10/21 10:51 Dose: 4 mls/sec Documented by: Iopamidol (Iopamidol 755 Mg/Ml 100 Ml Bottle) 100 ml IV . DIRECTED ONE Stop: 08/10/21 09:15 Last Admin: 08/10/21 10:51 Dose: 100 ml Documented by: Lorazepam (Lorazepam 2 Mg/Ml Sdv) 1 mg IVPUSH ONETIME ONE Stop: 08/09/21 04:47 Last Admin: 08/09/21 04:52 Dose: 1 mg Documented by: Lorazepam (Lorazepam 2 Mg/Ml Sdv) Confirm Administered Dose 2 mg .ROUTE .STK-MED ONE Stop: 08/09/21 04:51 Last Admin: 08/09/21 05:27 Dose: Not Given Documented by: Methylprednisolone Sodium Succinate (Methylprednisolone Sodium Succinate 125 Mg/2 Ml Sdv) 125 mg IVPUSH ONETIME ONE Stop: 08/07/21 11:07 Last Admin: 08/07/21 11:09 Dose: 125 mg Documented by: Morphine Sulfate (Morphine 2 Mg/Ml Syringe) Confirm Administered Dose 2 mg .ROUTE .STK-MED ONE Stop: 08/09/21 06:02 Last Admin: 08/09/21 06:21 Dose: Not Given Documented by: Potassium Chloride (Potassium Chloride 20 Meq Tab.Er) 40 meq PO ONETIME ONE Stop: 08/08/21 09:31 Last Admin: 08/08/21 09:58 Dose: 40 meq Documented by: Potassium Chloride (Potassium Chloride 20 Meq Tab.Er) 40 meq PO ONETIME ONE Stop: 08/08/21 17:01 Last Admin: 08/08/21 17:08 Dose: 40 meq Documented by: Propofol (Propofol 200 Mg/20 Ml Sdv) 200 mg .ROUTE .STK-MED ONE Stop: 08/09/21 10:01 Sodium Polystyrene Sulfonate (Sodium Polystyrene Sulfonate 15 Gm/60 Ml Susp 60 Ml Bot) 30 gm PO ONETIME ONE Stop: 08/10/21 16:46 Last Admin: 08/10/21 17:59 Dose: 30 gm Documented by: Sodium Polystyrene Sulfonate (Sodium Polystyrene Sulfonate 15 Gm/60 Ml Susp 60 Ml Bot) 30 gm PO ONETIME ONE Stop: 08/12/21 08:23 Last Admin: 08/12/21 09:20 Dose: 30 gm Documented by: Succinylcholine Chloride (Succinylcholine 200 Mg/10 Ml Mdv) 200 mg .ROUTE .STK- MED ONE Stop: 08/09/21 10:01 Tamsulosin HCl (Tamsulosin 0.4 Mg Cap.Er) 0.4 mg PO BEDTIME [facility] Last Admin: 08/09/21 21:13 Dose: Not Given Documented by: - Exam Quality Assessment: Supplemental Oxygen, Central Line/PICC, Urine Catheter, DVT Prophylaxis, Restraints. No: Skin Breakdown Central Line Total Time: 2Days 14Hours Urinary Catheter Total Time: 5Days 4Hours General: No Acute Distress, Sedated. No: Alert HEENT: Pupils Equal. No: Scleral Icterus Neck: Supple, Trachea Midline, No JVD Lungs: Normal Respiratory Effort, Decreased Breath Sounds (both bases) Cardiovascular: Regular Rhythm, No Murmurs, Tachycardia GI/Abdominal Exam: Normal Bowel Sounds, Soft, No Distention (Male) Exam: Scrotal Swelling Extremities: No Pedal Edema. No: Increased Warmth Skin: Warm, Dry Psy/Mental Status: No: Alert, Agitated - Patient Data Lab Results Last 24 hrs: Laboratory Results - last 24 hr 08/12/21 08/12/21 08/13/21 Range/Units 16:45 16:45 04:40 WBC 16.9 H (4.5-11.0) K/uL RBC 3.80 L (4.30-5.90) M/uL Hgb 12.9 (12.0-15.0) g/dL Hct 39.0 L (40.0-54.0) % MCV 103 H (80-98) fL MCH 34 H (27-31) pg MCHC 33 (32-36) % Plt Count 485 H (150-400) K/uL Add Manual Diff Yes Neutrophils % (Manual) 86 H (36-66) % Band Neutrophils % 3 L (5-11) % Lymphocytes % (Manual) 7 L (24-44) % Monocytes % (Manual) 3 (2-6) % Eosinophils % (Manual) 1 L (2-4) % Polychromasia Puncture Site A-line ABG pH 7.308 L (7.350-7.450) ABG pCO2 73.3 H* (35.0-42.0) mmHg ABG pO2 65.5 L (75.0-100.0) mmHg ABG HCO3 35.6 H (22.0-26.0) mmol/L ABG Total CO2 32.3 H (23.0-27.0) mmol/L ABG O2 Saturation 92.0 L (95.0-98.0) % ABG O2 Content 17.2 (15.0-23.0) %vol ABG Base Excess 7.0 mm/L ABG Hemoglobin 13.6 (13.5-18.0) g/dL ABG Oxyhemoglobin 89.8 % ABG Carboxyhemoglobin 1.2 (0.0-1.6) % ABG Methemoglobin 1.2 % [place] Test A-line O2 Delivery Device Ventilator Oxygen Flow Rate L Sodium 155 H (140-148) mmol/L Potassium 5.0 (3.6-5.2) mmol/L Chloride 114 H (100-108) mmol/L Carbon Dioxide 37 H (21-32) mmol/L Anion Gap 9.0 (5.0-14.0) mmol/L BUN 51 H (7-18) mg/dL Creatinine 1.4 H (0.8-1.3) mg/dL Est Cr Clr Drug Dosing 70.71 mL/min Estimated GFR (MDRD) 52 L (>60) Glucose 149 H (74-106) mg/dL Calcium 7.8 L (8.5-10.1) mg/dL Total Bilirubin (0.2-1.0) mg/dL AST (15-37) U/L ALT (12-78) U/L Alkaline Phosphatase (46-116) U/L Total Protein (6.4-8.2) g/dL Albumin (3.4-5.0) g/dL Globulin (2.3-3.5) g/dL Albumin/Globulin Ratio (1.2-2.2) Digoxin (0.90-2.00) ng/mL 08/13/21 08/13/21 Range/Units 04:40 04:40 WBC (4.5-11.0) K/uL RBC (4.30-5.90) M/uL Hgb (12.0-15.0) g/dL Hct (40.0-54.0) % MCV (80-98) fL MCH (27-31) pg MCHC (32-36) % Plt Count (150-400) K/uL Add Manual Diff Neutrophils % (Manual) (36-66) % Band Neutrophils % (5-11) % Lymphocytes % (Manual) (24-44) % Monocytes % (Manual) (2-6) % Eosinophils % (Manual) (2-4) % Polychromasia Puncture Site Line ABG pH 7.375 (7.350-7.450) ABG pCO2 61.8 H (35.0-42.0) mmHg ABG pO2 69.6 L (75.0-100.0) mmHg ABG HCO3 35.2 H (22.0-26.0) mmol/L ABG Total CO2 31.7 H (23.0-27.0) mmol/L ABG O2 Saturation 94.4 L (95.0-98.0) % ABG O2 Content 16.8 (15.0-23.0) %vol ABG Base Excess 8.3 mm/L ABG Hemoglobin 13.0 L (13.5-18.0) g/dL ABG Oxyhemoglobin 91.9 % ABG Carboxyhemoglobin 1.8 H (0.0-1.6) % ABG Methemoglobin 0.9 % [place] Test O2 Delivery Device Ventilator Oxygen Flow Rate L Sodium 155 H (140-148) mmol/L Potassium 4.4 (3.6-5.2) mmol/L Chloride 114 H (100-108) mmol/L Carbon Dioxide 35 H (21-32) mmol/L Anion Gap 10.4 (5.0-14.0) mmol/L BUN 54 H (7-18) mg/dL Creatinine 1.4 H (0.8-1.3) mg/dL Est Cr Clr Drug Dosing 70.71 mL/min Estimated GFR (MDRD) 52 L (>60) Glucose 125 H (74-106) mg/dL Calcium 7.6 L (8.5-10.1) mg/dL Total Bilirubin 1.4 H (0.2-1.0) mg/dL AST 81 H (15-37) U/L ALT 58 (12-78) U/L Alkaline Phosphatase 117 H (46-116) U/L Total Protein 6.3 L (6.4-8.2) g/dL Albumin 1.8 L (3.4-5.0) g/dL Globulin 4.5 H (2.3-3.5) g/dL Albumin/Globulin Ratio 0.4 L (1.2-2.2) Digoxin 0.77 L (0.90-2.00) ng/mL Result Diagrams: 08/13/21 04:40 08/13/21 04:40 Silviano Results Last 24 hrs: Microbiology 08/07/21 11:10 Aerobic Blood Culture - Final Blood - Arterial Line - Direct Stick NO GROWTH AFTER 5 DAYS Anaerobic Blood Culture - Final NO GROWTH AFTER 5 DAYS 08/07/21 11:00 Aerobic Blood Culture - Final Blood - Arm, Right NO GROWTH AFTER 5 DAYS Anaerobic Blood Culture - Final NO GROWTH AFTER 5 DAYS Sepsis Event Note - Evaluation Sepsis Screening Result: Severe Sepsis Risk - Focused Exam Vital Signs: Vital Signs Temp Pulse Pulse Resp BP BP Pulse Ox 08/13/21 08:00 36.4 C 111 H 28 H 109/61 89 L 08/13/21 07:58 110 H 108/60 08/13/21 07:00 107 H 28 H 100/57 L 90 L 08/13/21 06:00 107 H 28 H 108/60 90 L 08/13/21 05:00 105 H 29 H 107/59 L 90 L 08/13/21 04:00 36.5 C 103 H 28 H 118/69 90 L 08/13/21 03:00 105 H 29 H 117/66 92 L 08/13/21 02:08 106 H 117/66 08/13/21 02:00 107 H 28 H 122/65 92 L 08/13/21 01:00 36.6 C 107 H 29 H 122/65 91 L 08/13/21 00:00 114 H 28 H 121/71 91 L 08/12/21 23:00 111 H 28 H 124/69 90 L - Problem List Review Problem List Initiated/Reviewed/Updated: Yes - My Orders Last 24 Hours: My Active Orders 08/13/21 08:50 Renew/Continue Urinary Catheter [OM.PC] Routine 08/13/21 10:04 Nrsg Assess Restraint Init/Mon [RC] Q1H 08/13/21 10:15 Initiate/Renew Non-Violent Restraints (All Ages) Q24H 08/13/21 17:00 SODIUM,NA [CHEM] Timed 08/14/21 03:30 Insert Urinary Catheter [OM.PC] Q24H 08/14/21 05:00 BASIC METABOLIC PANEL,BMP [CHEM] Timed BLOOD GAS ARTERIAL [BG] Timed CBC W/O DIFF,HEMOGRAM [HEME] Timed (1) CRP [C-REACTIVE PROTEIN] [CHEM] Timed D-DIMER QUANTITATIVE [COAG] Timed - Plan Plan:: ASSESSMENT AND PLAN - COVID-19 PNEUMONIA-complicated by acute hypoxic respiratory failure. Stable on the ventilator. FiO2 down to 60%. Tolerating treatment so far. -Mechanical ventilation -Continue antibiotic therapy with doxycycline and ceftriaxone, today is day 6 of 7 -Limit IV fluids -Prone positioning -Remdesivir has been discontinued -Dexamethasone 6 mg IV daily, today is day 7 -Baricitinib 4 mg p.o. daily, today is day 7 of 14 -IV propofol for sedation ACUTE HYPOXIC RESPIRATORY FAILURE-secondary to COVID-19 infection and underlying COPD. -Continue current ventilator management BILATERAL PULMONARY EMBOLI-described as primarily nonocclusive on CT scan report. -Enoxaparin 110 mg subcutaneous every 12 hours ARDS-secondary to COVID-19 infection -Management as above COPD-no evidence of acute exacerbation -Continue outpatient medications CHRONIC KIDNEY DISEASE IIIa-renal function stable over the past few days -Closely monitor urine output and renal function -Hold on diuresis this morning, reassess later and again tomorrow BLADDER OUTLET OBSTRUCTION-Paulino catheter MAINTENANCE ISSUES -DVT prophylaxis; enoxaparin -GI prophylaxis; Protonix 40 mg IV daily -Paulino catheter; Paulino catheter placed because of urinary retention, now needed for close monitoring of urine output -Nutrition; n.p.o. DISPOSITION-anticipate transfer to a higher level of care when a critical care bed is available Zev Chapman MD
[2021-08-13] MEDS: cefTRIAXone 1 GM in Sodium Chloride 0.9% 50 ML IV SCH (10:51)
[2021-08-13] MEDS ORDERED: Furosemide 20 MG/2 ML VIAL IVPUSH ONE (20:00)
[2021-08-14] MEDS: Metoprolol Tartrate 25 MG Tab PO SCH ×3 (02:27→20:45)
[2021-08-14] MEDS: propofoL 100 ML IV SCH ×4 (04:31→20:34)
[2021-08-14] MEDS: Formoterol/Mometasone 200-5 MCG 8.8 GM Inhaler IH SCH ×2 (07:34→20:42)
--- NOTE | 2021-08-14 09:07 | CR ---
CHEST: Portable 08/14/2021 at 2:17 AM CLINICAL HISTORY:Endotracheal tube, pneumonia COMPARISON:08/13/2021 FINDINGS: Diffuse bilateral pulmonary infiltrates persist. There is no significant interval change.. Right upper extremity PICC line and NG tube remain in place. The endotracheal tube is now in the proximal trachea approximately 9 cm from the alberta Impression: Moderate diffuse bilateral pulmonary infiltrates similar to prior study Tubes and catheters as above
[2021-08-14] MEDS: Dexamethasone 4 MG/ML SDV IVPUSH SCH (09:08)
[2021-08-14] MEDS: Furosemide 20 MG/2 ML VIAL IVPUSH SCH ×2 (09:16→20:37)
[2021-08-14] MEDS: Pantoprazole 40 MG Vial IVPUSH SCH (09:22)
[2021-08-14] MEDS: Enoxaparin 120 MG/0.8 ML Syringe SUBCUT SCH ×2 (09:25→22:06)
[2021-08-14] MEDS: cefTRIAXone 1 GM in Sodium Chloride 0.9% 50 ML IV SCH ×2 (09:30→10:38)
[2021-08-14] MEDS: Doxycycline 100 MG in Sodium Chloride 0.9% 100 ML IV SCH ×2 (09:32→20:35)
--- NOTE | 2021-08-14 10:19 | PCM.PN ---
- General Info Date of Service: 08/14/21 Subjective Update: No acute events overnight. Patient remains intubated and sedated. He has not had any fevers. FiO2 has been stable at about 60%. He did have some borderline low blood pressures overnight so his metoprolol was held. Blood pressures are better today. I did try to increase his tidal volume up to 5 mL/kg ideal body weight but his plateau pressure patrick to more than 30 so he went back to 4 mL/kg. He does oxygenate better when laying on his left side versus the right. - Review of Systems General: Denies: Fever - Patient Data Vitals - Most Recent: Last Vital Signs Temp 36.1 C 08/14/21 04:00 Pulse 95 08/14/21 09:13 Resp 30 H 08/14/21 06:00 BP 114/72 08/14/21 09:13 Pulse Ox 94 L 08/14/21 06:00 Weight - Most Recent: 144.3 kg I&O - Last 24 Hours: Intake & Output 08/13/21 08/14/21 08/14/21 22:59 06:59 14:59 Intake Total 909 1105 Output Total 255 850 450 Balance 654 255 -450 Lab Results Last 24 Hours: Laboratory Results - last 24 hr 08/13/21 08/14/21 08/14/21 Range/Units 16:59 04:40 04:40 WBC 14.4 H (4.5-11.0) K/uL RBC 3.62 L (4.30-5.90) M/uL Hgb 12.0 (12.0-15.0) g/dL Hct 37.4 L (40.0-54.0) % MCV 103 H (80-98) fL MCH 33 H (27-31) pg MCHC 32 (32-36) % Plt Count 503 H (150-400) K/uL D-Dimer, Quantitative 4555.62 H (0.0-500.0) ng/mL Puncture Site ABG pH (7.350-7.450) ABG pCO2 (35.0-42.0) mmHg ABG pO2 (75.0-100.0) mmHg ABG HCO3 (22.0-26.0) mmol/L ABG Total CO2 (23.0-27.0) mmol/L ABG O2 Saturation (95.0-98.0) % ABG O2 Content (15.0-23.0) %vol ABG Base Excess mm/L ABG Hemoglobin (13.5-18.0) g/dL ABG Oxyhemoglobin % ABG Carboxyhemoglobin (0.0-1.6) % ABG Methemoglobin % O2 Delivery Device Oxygen Flow Rate L Sodium 152 H (140-148) mmol/L Potassium (3.6-5.2) mmol/L Chloride (100-108) mmol/L Carbon Dioxide (21-32) mmol/L Anion Gap (5.0-14.0) mmol/L BUN (7-18) mg/dL Creatinine (0.8-1.3) mg/dL Est Cr Clr Drug Dosing mL/min Estimated GFR (MDRD) (>60) Glucose (74-106) mg/dL Calcium (8.5-10.1) mg/dL C-Reactive Protein (0.0-0.3) mg/dL 08/14/21 08/14/21 Range/Units 04:40 05:45 WBC (4.5-11.0) K/uL RBC (4.30-5.90) M/uL Hgb (12.0-15.0) g/dL Hct (40.0-54.0) % MCV (80-98) fL MCH (27-31) pg MCHC (32-36) % Plt Count (150-400) K/uL D-Dimer, Quantitative (0.0-500.0) ng/mL Puncture Site Line ABG pH 7.390 (7.350-7.450) ABG pCO2 60.1 H (35.0-42.0) mmHg ABG pO2 92.9 (75.0-100.0) mmHg ABG HCO3 35.6 H (22.0-26.0) mmol/L ABG Total CO2 32.1 H (23.0-27.0) mmol/L ABG O2 Saturation 97.4 (95.0-98.0) % ABG O2 Content 16.7 (15.0-23.0) %vol ABG Base Excess 9.0 mm/L ABG Hemoglobin 12.5 L (13.5-18.0) g/dL ABG Oxyhemoglobin 94.7 % ABG Carboxyhemoglobin 2.0 H (0.0-1.6) % ABG Methemoglobin 0.8 % O2 Delivery Device Ventilator Oxygen Flow Rate L Sodium 151 H (140-148) mmol/L Potassium 4.6 (3.6-5.2) mmol/L Chloride 110 H (100-108) mmol/L Carbon Dioxide 35 H (21-32) mmol/L Anion Gap 10.6 (5.0-14.0) mmol/L BUN 55 H (7-18) mg/dL Creatinine 1.3 (0.8-1.3) mg/dL Est Cr Clr Drug Dosing 76.15 mL/min Estimated GFR (MDRD) 56 L (>60) Glucose 127 H (74-106) mg/dL Calcium 7.5 L (8.5-10.1) mg/dL C-Reactive Protein 8.90 H (0.0-0.3) mg/dL Med Orders - Current: Current Medications Acetaminophen (Acetaminophen 325 Mg Tab) 650 mg PO Q4H PRN PRN Reason: Pain (Mild 1-3)/fever Last Admin: 08/08/21 20:01 Dose: 325 mg Documented by: Albuterol (Albuterol 8 Gm Inhaler) 0 gm INH ASDIRECTED PRN PRN Reason: Shortness of Breath Last Admin: 08/09/21 05:53 Dose: 1 puff Documented by: Baricitinib (Baricitinib 2 Mg Tab) 4 mg PO DAILY [facility] Stop: 08/20/21 09:01 Last Admin: 08/14/21 09:15 Dose: 4 mg Documented by: Dexamethasone (Dexamethasone 4 Mg/Ml Sdv) 6 mg IVPUSH Q24H [facility] Last Admin: 08/14/21 09:08 Dose: 6 mg Documented by: Dimethicone/Zinc Oxide (Dimethicone 20%/Zinc Oxide 25% 56 Gm [place] Bottle) 1 gm TOP ASDIRECTED PRN PRN Reason: groin Enoxaparin Sodium (Enoxaparin 120 Mg/0.8 Ml Syringe) 110 mg SUBCUT Q12H [facility] Last Admin: 08/14/21 09:25 Dose: 110 mg Documented by: Furosemide (Furosemide 20 Mg/2 Ml Vial) 20 mg IVPUSH BID [facility] Last Admin: 08/14/21 09:16 Dose: 20 mg Documented by: Doxycycline Hyclate 100 mg/ (Sodium Chloride) 100 mls @ 100 mls/hr IV Q12H [facility] Last Admin: 08/14/21 09:32 Dose: 100 mls/hr Documented by: Ceftriaxone Sodium 1 gm/ (Sodium Chloride) 50 mls @ 100 mls/hr IV Q24H [facility] Last Admin: 08/13/21 10:51 Dose: 100 mls/hr Documented by: Heparin Sodium (Porcine) 5,000 (units/ Sodium Chloride) 501 mls @ 5 mls/hr IV Q72H [facility] Last Admin: 08/12/21 10:32 Dose: 5 mls/hr Documented by: Propofol (Diprivan 100 Ml) 100 mls @ 4.042 mls/hr IV TITRATE [facility]; Protocol Last Admin: 08/14/21 04:31 Dose: 20 mcg/kg/min, 16.166 mls/hr Documented by: Dextrose/Water (Dextrose 5% In Water) 1,000 mls @ 0 mls/hr IV ASDIRECTED [facility] Last Admin: 08/12/21 18:46 Dose: 25 mls/hr Documented by: Lorazepam (Lorazepam 0.5 Mg Tab) 0.5 mg PO Q4H PRN PRN Reason: Anxiety Last Admin: 08/09/21 08:11 Dose: 0.5 mg Documented by: Metoprolol Tartrate (Metoprolol Tartrate 25 Mg Tab) 12.5 mg PO BID [facility] Last Admin: 08/14/21 09:13 Dose: 12.5 mg Documented by: Mometasone Furoate/Formoterol Fumar (Formoterol/Mometasone 200-5 Mcg 8.8 Gm Inhaler) 2 puff IH BIDRT [facility] Last Admin: 08/14/21 07:34 Dose: 2 puff Documented by: Morphine Sulfate (Morphine 2 Mg/Ml Syringe) 2 mg IVPUSH Q2H PRN PRN Reason: [employer] H[employer]GER Last Admin: 08/09/21 08:11 Dose: 2 mg Documented by: Ondansetron HCl (Ondansetron 4 Mg/2 Ml Sdv) 4 mg IV Q4H PRN PRN Reason: Nausea/Vomiting Pantoprazole Sodium (Pantoprazole 40 Mg Vial) 40 mg IVPUSH DAILY [facility] Last Admin: 08/14/21 09:22 Dose: 40 mg Documented by: Polyethylene Glycol (Polyethylene Glycol 3350 Powder 17 Gm Packet) 17 gm PO DAILY PRN PRN Reason: Constipation Sodium Chloride (Sodium Chloride 0.9% 10 Ml Syringe) 10 ml FLUSH ASDIRECTED PRN PRN Reason: Keep Vein Open Discontinued Medications Acetaminophen (Acetaminophen 325 Mg Tab) Confirm Administered Dose 325 mg .ROUTE .STK-MED ONE Stop: 08/08/21 20:16 Last Admin: 08/08/21 20:31 Dose: 325 mg Documented by: Azithromycin (Azithromycin 250 Mg Tab) 250 mg PO DAILY [facility] Last Admin: 08/08/21 00:02 Dose: 500 mg Documented by: Azithromycin (Azithromycin 250 Mg Tab) 250 mg PO BEDTIME [facility] Stop: 08/11/21 21:01 Baricitinib (Baricitinib 2 Mg Tab) 2 mg PO DAILY [facility] Stop: 08/20/21 09:01 Last Admin: 08/09/21 10:50 Dose: Not Given Documented by: Baricitinib (Baricitinib 2 Mg Tab) 4 mg PO DAILY [facility] Stop: 08/20/21 09:01 Last Admin: 08/12/21 09:09 Dose: 4 mg Documented by: Baricitinib (Baricitinib 2 Mg Tab) 2 mg PO DAILY [facility] Stop: 08/20/21 09:01 Last Admin: 08/11/21 09:36 Dose: 2 mg Documented by: Benzonatate (Benzonatate 100 Mg Cap) 100 mg PO Q6H PRN PRN Reason: Cough Last Admin: 08/08/21 20:01 Dose: 100 mg Documented by: Digoxin (Digoxin 500 Mcg/2 Ml Amp) 250 mcg IVPUSH ONETIME ONE Stop: 08/11/21 03:47 Last Admin: 08/11/21 03:57 Dose: 250 mcg Documented by: Digoxin (Digoxin 500 Mcg/2 Ml Amp) 250 mcg IVPUSH ONETIME ONE Stop: 08/11/21 11:27 Last Admin: 08/11/21 12:51 Dose: 250 mcg Documented by: Digoxin (Digoxin 500 Mcg/2 Ml Amp) 250 mcg IVPUSH ONETIME ONE Stop: 08/12/21 08:28 Last Admin: 08/12/21 09:20 Dose: 250 mcg Documented by: Enoxaparin Sodium (Enoxaparin 40 Mg/0.4 Ml Syringe) 40 mg SUBCUT Q24H [facility] Last Admin: 08/09/21 16:51 Dose: 40 mg Documented by: Enoxaparin Sodium (Enoxaparin 150 Mg/1 Ml Syringe) 150 mg SUBCUT Q12H [facility] Last Admin: 08/11/21 08:32 Dose: 150 mg Documented by: Furosemide (Furosemide 20 Mg/2 Ml Vial) 20 mg IVPUSH NOW ONE Stop: 08/09/21 09:01 Last Admin: 08/09/21 09:14 Dose: 20 mg Documented by: Furosemide (Furosemide 20 Mg/2 Ml Vial) 20 mg IVPUSH NOW ONE Stop: 08/10/21 08:31 Last Admin: 08/10/21 09:29 Dose: 20 mg Documented by: Furosemide (Furosemide 20 Mg/2 Ml Vial) 20 mg IVPUSH NOW ONE Stop: 08/12/21 08:36 Last Admin: 08/12/21 09:15 Dose: 20 mg Documented by: Furosemide (Furosemide 20 Mg/2 Ml Vial) 20 mg IVPUSH NOW ONE Stop: 08/13/21 20:01 Last Admin: 08/13/21 19:59 Dose: 20 mg Documented by: Remdesivir 200 mg/ Sodium (Chloride) 250 mls @ 250 mls/hr IV ONETIME ONE Stop: 08/07/21 13:59 Last Admin: 08/07/21 13:09 Dose: 250 mls/hr Documented by: Remdesivir 100 mg/ Sodium (Chloride) 100 mls @ 100 mls/hr IV Q24H [facility] Stop: 08/11/21 13:59 Last Admin: 08/08/21 15:17 Dose: 100 mls/hr Documented by: Doxycycline Hyclate 100 mg/ (Sodium Chloride) 100 mls @ 100 mls/hr IV NOW ONE Stop: 08/08/21 00:59 Last Admin: 08/08/21 00:02 Dose: 100 mls/hr Documented by: Propofol (Diprivan 100 Ml) Confirm Administered Dose 100 mls @ as directed .ROUTE .STK-MED ONE Stop: 08/09/21 09:36 Last Admin: 08/09/21 10:49 Dose: Not Given Documented by: Sodium Chloride (Normal Saline) 100 mls @ 4 mls/sec IV ASDIRECTED [facility] Stop: 08/10/21 09:16 Last Admin: 08/10/21 10:51 Dose: 4 mls/sec Documented by: Iopamidol (Iopamidol 755 Mg/Ml 100 Ml Bottle) 100 ml IV . DIRECTED ONE Stop: 08/10/21 09:15 Last Admin: 08/10/21 10:51 Dose: 100 ml Documented by: Lorazepam (Lorazepam 2 Mg/Ml Sdv) 1 mg IVPUSH ONETIME ONE Stop: 08/09/21 04:47 Last Admin: 08/09/21 04:52 Dose: 1 mg Documented by: Lorazepam (Lorazepam 2 Mg/Ml Sdv) Confirm Administered Dose 2 mg .ROUTE .STK-MED ONE Stop: 08/09/21 04:51 Last Admin: 08/09/21 05:27 Dose: Not Given Documented by: Methylprednisolone Sodium Succinate (Methylprednisolone Sodium Succinate 125 Mg/2 Ml Sdv) 125 mg IVPUSH ONETIME ONE Stop: 08/07/21 11:07 Last Admin: 08/07/21 11:09 Dose: 125 mg Documented by: Metoprolol Tartrate (Metoprolol Tartrate 25 Mg Tab) 12.5 mg PO Q6H [facility] Last Admin: 08/14/21 02:27 Dose: Not Given Documented by: Morphine Sulfate (Morphine 2 Mg/Ml Syringe) Confirm Administered Dose 2 mg .ROUTE .STK-MED ONE Stop: 08/09/21 06:02 Last Admin: 08/09/21 06:21 Dose: Not Given Documented by: Potassium Chloride (Potassium Chloride 20 Meq Tab.Er) 40 meq PO ONETIME ONE Stop: 08/08/21 09:31 Last Admin: 08/08/21 09:58 Dose: 40 meq Documented by: Potassium Chloride (Potassium Chloride 20 Meq Tab.Er) 40 meq PO ONETIME ONE Stop: 08/08/21 17:01 Last Admin: 08/08/21 17:08 Dose: 40 meq Documented by: Propofol (Propofol 200 Mg/20 Ml Sdv) 200 mg .ROUTE .STK-MED ONE Stop: 08/09/21 10:01 Sodium Polystyrene Sulfonate (Sodium Polystyrene Sulfonate 15 Gm/60 Ml Susp 60 Ml Bot) 30 gm PO ONETIME ONE Stop: 08/10/21 16:46 Last Admin: 08/10/21 17:59 Dose: 30 gm Documented by: Sodium Polystyrene Sulfonate (Sodium Polystyrene Sulfonate 15 Gm/60 Ml Susp 60 Ml Bot) 30 gm PO ONETIME ONE Stop: 08/12/21 08:23 Last Admin: 08/12/21 09:20 Dose: 30 gm Documented by: Succinylcholine Chloride (Succinylcholine 200 Mg/10 Ml Mdv) 200 mg .ROUTE .STK- MED ONE Stop: 08/09/21 10:01 Tamsulosin HCl (Tamsulosin 0.4 Mg Cap.Er) 0.4 mg PO BEDTIME [facility] Last Admin: 08/09/21 21:13 Dose: Not Given Documented by: - Exam Quality Assessment: Supplemental Oxygen Central Line Total Time: 3Days 13Hours Urinary Catheter Total Time: 6Days 6Hours General: No Acute Distress, Sedated. No: Alert HEENT: Pupils Equal Lungs: Normal Respiratory Effort, Decreased Breath Sounds (right lung base), Crackles (left lower and midlung ) Cardiovascular: Regular Rate, Regular Rhythm GI/Abdominal Exam: Normal Bowel Sounds, Soft, No Distention Extremities: Pedal Edema (trace bilateral edema ). No: Increased Warmth Skin: Warm, Dry Psy/Mental Status: No: Alert, Agitated - Patient Data Lab Results Last 24 hrs: Laboratory Results - last 24 hr 08/13/21 08/14/21 08/14/21 Range/Units 16:59 04:40 04:40 WBC 14.4 H (4.5-11.0) K/uL RBC 3.62 L (4.30-5.90) M/uL Hgb 12.0 (12.0-15.0) g/dL Hct 37.4 L (40.0-54.0) % MCV 103 H (80-98) fL MCH 33 H (27-31) pg MCHC 32 (32-36) % Plt Count 503 H (150-400) K/uL D-Dimer, Quantitative 4555.62 H (0.0-500.0) ng/mL Puncture Site ABG pH (7.350-7.450) ABG pCO2 (35.0-42.0) mmHg ABG pO2 (75.0-100.0) mmHg ABG HCO3 (22.0-26.0) mmol/L ABG Total CO2 (23.0-27.0) mmol/L ABG O2 Saturation (95.0-98.0) % ABG O2 Content (15.0-23.0) %vol ABG Base Excess mm/L ABG Hemoglobin (13.5-18.0) g/dL ABG Oxyhemoglobin % ABG Carboxyhemoglobin (0.0-1.6) % ABG Methemoglobin % O2 Delivery Device Oxygen Flow Rate L Sodium 152 H (140-148) mmol/L Potassium (3.6-5.2) mmol/L Chloride (100-108) mmol/L Carbon Dioxide (21-32) mmol/L Anion Gap (5.0-14.0) mmol/L BUN (7-18) mg/dL Creatinine (0.8-1.3) mg/dL Est Cr Clr Drug Dosing mL/min Estimated GFR (MDRD) (>60) Glucose (74-106) mg/dL Calcium (8.5-10.1) mg/dL C-Reactive Protein (0.0-0.3) mg/dL 08/14/21 08/14/21 Range/Units 04:40 05:45 WBC (4.5-11.0) K/uL RBC (4.30-5.90) M/uL Hgb (12.0-15.0) g/dL Hct (40.0-54.0) % MCV (80-98) fL MCH (27-31) pg MCHC (32-36) % Plt Count (150-400) K/uL D-Dimer, Quantitative (0.0-500.0) ng/mL Puncture Site Line ABG pH 7.390 (7.350-7.450) ABG pCO2 60.1 H (35.0-42.0) mmHg ABG pO2 92.9 (75.0-100.0) mmHg ABG HCO3 35.6 H (22.0-26.0) mmol/L ABG Total CO2 32.1 H (23.0-27.0) mmol/L ABG O2 Saturation 97.4 (95.0-98.0) % ABG O2 Content 16.7 (15.0-23.0) %vol ABG Base Excess 9.0 mm/L ABG Hemoglobin 12.5 L (13.5-18.0) g/dL ABG Oxyhemoglobin 94.7 % ABG Carboxyhemoglobin 2.0 H (0.0-1.6) % ABG Methemoglobin 0.8 % O2 Delivery Device Ventilator Oxygen Flow Rate L Sodium 151 H (140-148) mmol/L Potassium 4.6 (3.6-5.2) mmol/L Chloride 110 H (100-108) mmol/L Carbon Dioxide 35 H (21-32) mmol/L Anion Gap 10.6 (5.0-14.0) mmol/L BUN 55 H (7-18) mg/dL Creatinine 1.3 (0.8-1.3) mg/dL Est Cr Clr Drug Dosing 76.15 mL/min Estimated GFR (MDRD) 56 L (>60) Glucose 127 H (74-106) mg/dL Calcium 7.5 L (8.5-10.1) mg/dL C-Reactive Protein 8.90 H (0.0-0.3) mg/dL Result Diagrams: 08/14/21 04:40 08/14/21 04:40 Sepsis Event Note - Evaluation Sepsis Screening Result: Severe Sepsis Risk - Focused Exam Vital Signs: Vital Signs Temp Pulse Pulse Resp BP BP Pulse Ox 08/14/21 09:13 95 114/72 08/14/21 06:00 89 30 H 114/68 94 L 08/14/21 05:00 85 30 H 100/52 L 92 L 08/14/21 04:00 36.1 C 89 30 H 102/47 L 92 L 08/14/21 03:00 85 28 H 102/48 L 92 L 08/14/21 02:27 85 105/59 L 08/14/21 02:00 86 28 H 105/59 L 91 L 08/14/21 01:17 88 L 08/14/21 01:00 87 28 H 104/52 L 91 L 08/14/21 00:00 36.4 C 85 28 H 115/66 96 08/13/21 23:00 85 28 H 91/52 L 96 - Problem List Review Problem List Initiated/Reviewed/Updated: Yes - My Orders Last 24 Hours: My Active Orders 08/13/21 10:04 Nrsg Assess Restraint Init/Mon [RC] Q2HR 08/14/21 09:00 Furosemide [Lasix] 20 mg IVPUSH BID Metoprolol Tartrate [Lopressor] 12.5 mg PO BID 08/14/21 10:17 Initiate/Renew Non-Violent Restraints (All Ages) Q24H 08/14/21 10:18 Consult to Dietary [Consult to Steward/Stewardess [employer]] [CONS] Routine 08/15/21 03:30 Insert Urinary Catheter [OM.PC] Q24H 08/15/21 05:00 BASIC METABOLIC PANEL,BMP [CHEM] Timed BLOOD GAS ARTERIAL [BG] Timed CBC W/O DIFF,HEMOGRAM [HEME] Timed (1) MAGNESIUM [CHEM] Timed 08/15/21 05:11 Chest 1V Frontal [CR] DAILY 08/16/21 05:11 Chest 1V Frontal [CR] DAILY 08/17/21 05:11 Chest 1V Frontal [CR] DAILY 08/18/21 05:11 Chest 1V Frontal [CR] DAILY - Plan Plan:: ASSESSMENT AND PLAN - COVID-19 PNEUMONIA-complicated by acute hypoxic respiratory failure. Stable on the ventilator. FiO2 stable at 60%. D-dimer and CRP are improving but remain moderately elevated. Unable to prone. -Mechanical ventilation -Continue antibiotic therapy with doxycycline and ceftriaxone, today is day 7 of 7 -Limit IV fluids -Prone positioning if able -Remdesivir discontinued when intubated -Dexamethasone 6 mg IV daily, today is day 8 -Baricitinib 4 mg p.o. daily, today is day 8 of 14 -IV propofol for sedation -Twice daily diuresis ACUTE HYPOXIC RESPIRATORY FAILURE-secondary to COVID-19 infection and underlying COPD. -Continue current ventilator management BILATERAL PULMONARY EMBOLI-described as primarily nonocclusive on CT scan report. -Enoxaparin 110 mg subcutaneous every 12 hours ARDS-secondary to COVID-19 infection -Management as above Hypernatremia-secondary to free water deficit. Slowly improving with free water flushes. COPD-respiratory status stable. -Continue outpatient medications CHRONIC KIDNEY DISEASE IIIa-renal function stable over the past few days -Closely monitor urine output and renal function BLADDER OUTLET OBSTRUCTION-Paulino catheter MAINTENANCE ISSUES -DVT prophylaxis; enoxaparin -GI prophylaxis; Protonix 40 mg IV daily -Paulino catheter; Paulino catheter placed because of urinary retention and strict I/O monitoring in a critical patient -Nutrition; starting tube feeds today DISPOSITION-anticipate transfer to a higher level of care when a critical care bed is available Zev Chapman MD
[2021-08-14] MEDS: Dextrose 5% in Water 1,000 ML IV SCH (11:55)
[2021-08-15] MEDS: propofoL 100 ML IV SCH ×6 (00:34→23:34)
[2021-08-15] MEDS: Formoterol/Mometasone 200-5 MCG 8.8 GM Inhaler IH SCH ×2 (08:08→21:47)
[2021-08-15] MEDS: Dexamethasone 4 MG/ML SDV IVPUSH SCH (09:03)
[2021-08-15] MEDS: Pantoprazole 40 MG Vial IVPUSH SCH (09:08)
[2021-08-15] MEDS: Metoprolol Tartrate 25 MG Tab PO SCH ×2 (09:16→21:47)
[2021-08-15] MEDS: Furosemide 40 MG/4 ML VIAL IVPUSH SCH ×2 (09:20→21:47)
[2021-08-15] MEDS: Enoxaparin 120 MG/0.8 ML Syringe SUBCUT SCH ×2 (09:25→21:47)
[2021-08-15] MEDS: Dextrose 5% in Water 1,000 ML IV SCH (10:07)
--- NOTE | 2021-08-15 10:24 | PCM.PN ---
- General Info Date of Service: 08/15/21 Subjective Update: No acute events overnight. Respiratory status has been fairly stable. PCO2 did rise to more than 70 this morning. This has come down after some ventilator bishop nges including decreased PEEP, increased tidal volume and decreased respiratory rate. No fevers. Kidney function stable. Tolerating tube feeds. Sodium level slowly improving. - Review of Systems General: Denies: Fever - Patient Data Vitals - Most Recent: Last Vital Signs Temp 36.2 C 08/15/21 00:00 Pulse 101 H 08/15/21 09:16 Resp 30 H 08/15/21 08:00 BP 110/62 08/15/21 09:16 Pulse Ox 93 L 08/15/21 08:00 Weight - Most Recent: 147.7 kg I&O - Last 24 Hours: Intake & Output 08/14/21 08/15/21 08/15/21 22:59 06:59 14:59 Intake Total 892 3071 108 Output Total 550 1075 160 Balance 342 1995 Lab Results Last 24 Hours: Laboratory Results - last 24 hr 08/15/21 08/15/21 08/15/21 Range/Units 05:20 05:20 05:20 WBC 13.4 H (4.5-11.0) K/uL RBC 3.99 L (4.30-5.90) M/uL Hgb 12.0 (12.0-15.0) g/dL Hct 40.0 (40.0-54.0) % MCV 100 H (80-98) fL MCH 30 (27-31) pg MCHC 30 L (32-36) % Plt Count 493 H (150-400) K/uL Puncture Site A-line ABG pH 7.330 L (7.350-7.450) ABG pCO2 73.6 H* (35.0-42.0) mmHg ABG pO2 70.8 L (75.0-100.0) mmHg ABG HCO3 37.7 H (22.0-26.0) mmol/L ABG Total CO2 34.7 H (23.0-27.0) mmol/L ABG O2 Saturation 93.3 L (95.0-98.0) % ABG O2 Content 15.5 (15.0-23.0) %vol ABG Base Excess 9.6 mm/L ABG Hemoglobin 12.1 L (13.5-18.0) g/dL ABG Oxyhemoglobin 90.9 % ABG Carboxyhemoglobin 1.4 (0.0-1.6) % ABG Methemoglobin 1.2 % [place] Test A-line O2 Delivery Device Ventilator Oxygen Flow Rate L Sodium 150 H (140-148) mmol/L Potassium 4.5 (3.6-5.2) mmol/L Chloride 109 H (100-108) mmol/L Carbon Dioxide 37 H (21-32) mmol/L Anion Gap 8.5 (5.0-14.0) mmol/L BUN 54 H (7-18) mg/dL Creatinine 1.2 (0.8-1.3) mg/dL Est Cr Clr Drug Dosing 82.50 mL/min Estimated GFR (MDRD) > 60 (>60) Glucose 142 H (74-106) mg/dL Calcium 7.5 L (8.5-10.1) mg/dL Magnesium 3.5 H (1.8-2.4) mg/dL Med Orders - Current: Current Medications Acetaminophen (Acetaminophen 325 Mg Tab) 650 mg PO Q4H PRN PRN Reason: Pain (Mild 1-3)/fever Last Admin: 08/08/21 20:01 Dose: 325 mg Documented by: Albuterol (Albuterol 8 Gm Inhaler) 0 gm INH ASDIRECTED PRN PRN Reason: Shortness of Breath Last Admin: 08/09/21 05:53 Dose: 1 puff Documented by: Baricitinib (Baricitinib 2 Mg Tab) 4 mg PO DAILY COUNT INCLUDES THE [facility] Stop: 08/20/21 09:01 Last Admin: 08/15/21 09:10 Dose: 4 mg Documented by: Dexamethasone (Dexamethasone 4 Mg/Ml Sdv) 6 mg IVPUSH Q24H COUNT INCLUDES THE [facility] Last Admin: 08/15/21 09:03 Dose: 6 mg Documented by: Dimethicone/Zinc Oxide (Dimethicone 20%/Zinc Oxide 25% 56 Gm [place] Bottle) 1 gm TOP ASDIRECTED PRN PRN Reason: groin Enoxaparin Sodium (Enoxaparin 120 Mg/0.8 Ml Syringe) 110 mg SUBCUT Q12H COUNT INCLUDES THE [facility] Last Admin: 08/15/21 09:25 Dose: 110 mg Documented by: Furosemide (Furosemide 40 Mg/4 Ml Vial) 40 mg IVPUSH BID COUNT INCLUDES THE [facility] Last Admin: 08/15/21 09:20 Dose: 40 mg Documented by: Heparin Sodium (Porcine) 5,000 (units/ Sodium Chloride) 501 mls @ 5 mls/hr IV Q72H COUNT INCLUDES THE [facility] Last Admin: 08/12/21 10:32 Dose: 5 mls/hr Documented by: Propofol (Diprivan 100 Ml) 100 mls @ 4.042 mls/hr IV TITRATE COUNT INCLUDES THE [facility]; Protocol Last Admin: 08/15/21 09:54 Dose: 25 mcg/kg/min, 20.208 mls/hr Documented by: Dextrose/Water (Dextrose 5% In Water) 1,000 mls @ 0 mls/hr IV ASDIRECTED COUNT INCLUDES THE [facility] Last Admin: 08/15/21 10:07 Dose: 25 mls/hr Documented by: Lorazepam (Lorazepam 0.5 Mg Tab) 0.5 mg PO Q4H PRN PRN Reason: Anxiety Last Admin: 08/09/21 08:11 Dose: 0.5 mg Documented by: Metoprolol Tartrate (Metoprolol Tartrate 25 Mg Tab) 12.5 mg PO BID COUNT INCLUDES THE [facility] Last Admin: 08/15/21 09:16 Dose: 12.5 mg Documented by: Mometasone Furoate/Formoterol Fumar (Formoterol/Mometasone 200-5 Mcg 8.8 Gm Inhaler) 2 puff IH BIDRT COUNT INCLUDES THE [facility] Last Admin: 08/15/21 08:08 Dose: 2 puff Documented by: Morphine Sulfate (Morphine 2 Mg/Ml Syringe) 2 mg IVPUSH Q2H PRN PRN Reason: AIR HUNGER Last Admin: 08/09/21 08:11 Dose: 2 mg Documented by: Ondansetron HCl (Ondansetron 4 Mg/2 Ml Sdv) 4 mg IV Q4H PRN PRN Reason: Nausea/Vomiting Pantoprazole Sodium (Pantoprazole 40 Mg Vial) 40 mg IVPUSH DAILY COUNT INCLUDES THE [facility] Last Admin: 08/15/21 09:08 Dose: 40 mg Documented by: Polyethylene Glycol (Polyethylene Glycol 3350 Powder 17 Gm Packet) 17 gm PO DAILY PRN PRN Reason: Constipation Sodium Chloride (Sodium Chloride 0.9% 10 Ml Syringe) 10 ml FLUSH ASDIRECTED PRN PRN Reason: Keep Vein Open Discontinued Medications Acetaminophen (Acetaminophen 325 Mg Tab) Confirm Administered Dose 325 mg .ROUTE .STK-MED ONE Stop: 08/08/21 20:16 Last Admin: 08/08/21 20:31 Dose: 325 mg Documented by: Azithromycin (Azithromycin 250 Mg Tab) 250 mg PO DAILY COUNT INCLUDES THE [facility] Last Admin: 08/08/21 00:02 Dose: 500 mg Documented by: Azithromycin (Azithromycin 250 Mg Tab) 250 mg PO BEDTIME [facility] Stop: 08/11/21 21:01 Baricitinib (Baricitinib 2 Mg Tab) 2 mg PO DAILY [facility] Stop: 08/20/21 09:01 Last Admin: 08/09/21 10:50 Dose: Not Given Documented by: Baricitinib (Baricitinib 2 Mg Tab) 4 mg PO DAILY [facility] Stop: 08/20/21 09:01 Last Admin: 08/12/21 09:09 Dose: 4 mg Documented by: Baricitinib (Baricitinib 2 Mg Tab) 2 mg PO DAILY [facility] Stop: 08/20/21 09:01 Last Admin: 08/11/21 09:36 Dose: 2 mg Documented by: Benzonatate (Benzonatate 100 Mg Cap) 100 mg PO Q6H PRN PRN Reason: Cough Last Admin: 08/08/21 20:01 Dose: 100 mg Documented by: Digoxin (Digoxin 500 Mcg/2 Ml Amp) 250 mcg IVPUSH ONETIME ONE Stop: 08/11/21 03:47 Last Admin: 08/11/21 03:57 Dose: 250 mcg Documented by: Digoxin (Digoxin 500 Mcg/2 Ml Amp) 250 mcg IVPUSH ONETIME ONE Stop: 08/11/21 11:27 Last Admin: 08/11/21 12:51 Dose: 250 mcg Documented by: Digoxin (Digoxin 500 Mcg/2 Ml Amp) 250 mcg IVPUSH ONETIME ONE Stop: 08/12/21 08:28 Last Admin: 08/12/21 09:20 Dose: 250 mcg Documented by: Enoxaparin Sodium (Enoxaparin 40 Mg/0.4 Ml Syringe) 40 mg SUBCUT Q24H COUNT INCLUDES THE [facility] Last Admin: 08/09/21 16:51 Dose: 40 mg Documented by: Enoxaparin Sodium (Enoxaparin 150 Mg/1 Ml Syringe) 150 mg SUBCUT Q12H COUNT INCLUDES THE [facility] Last Admin: 08/11/21 08:32 Dose: 150 mg Documented by: Furosemide (Furosemide 20 Mg/2 Ml Vial) 20 mg IVPUSH NOW ONE Stop: 08/09/21 09:01 Last Admin: 08/09/21 09:14 Dose: 20 mg Documented by: Furosemide (Furosemide 20 Mg/2 Ml Vial) 20 mg IVPUSH NOW ONE Stop: 08/10/21 08:31 Last Admin: 08/10/21 09:29 Dose: 20 mg Documented by: Furosemide (Furosemide 20 Mg/2 Ml Vial) 20 mg IVPUSH NOW ONE Stop: 08/12/21 08:36 Last Admin: 08/12/21 09:15 Dose: 20 mg Documented by: Furosemide (Furosemide 20 Mg/2 Ml Vial) 20 mg IVPUSH NOW ONE Stop: 08/13/21 20:01 Last Admin: 08/13/21 19:59 Dose: 20 mg Documented by: Furosemide (Furosemide 20 Mg/2 Ml Vial) 20 mg IVPUSH BID COUNT INCLUDES THE [facility] Last Admin: 08/14/21 20:37 Dose: 20 mg Documented by: Remdesivir 200 mg/ Sodium (Chloride) 250 mls @ 250 mls/hr IV ONETIME ONE Stop: 08/07/21 13:59 Last Admin: 08/07/21 13:09 Dose: 250 mls/hr Documented by: Remdesivir 100 mg/ Sodium (Chloride) 100 mls @ 100 mls/hr IV Q24H COUNT INCLUDES THE [facility] Stop: 08/11/21 13:59 Last Admin: 08/08/21 15:17 Dose: 100 mls/hr Documented by: Doxycycline Hyclate 100 mg/ (Sodium Chloride) 100 mls @ 100 mls/hr IV Q12H COUNT INCLUDES THE [facility] Last Admin: 08/14/21 20:35 Dose: 100 mls/hr Documented by: Doxycycline Hyclate 100 mg/ (Sodium Chloride) 100 mls @ 100 mls/hr IV NOW ONE Stop: 08/08/21 00:59 Last Admin: 08/08/21 00:02 Dose: 100 mls/hr Documented by: Ceftriaxone Sodium 1 gm/ (Sodium Chloride) 50 mls @ 100 mls/hr IV Q24H COUNT INCLUDES THE [facility] Last Admin: 08/14/21 10:38 Dose: 100 mls/hr Documented by: Propofol (Diprivan 100 Ml) Confirm Administered Dose 100 mls @ as directed .ROUTE .STK-MED ONE Stop: 08/09/21 09:36 Last Admin: 08/09/21 10:49 Dose: Not Given Documented by: Sodium Chloride (Normal Saline) 100 mls @ 4 mls/sec IV ASDIRECTED COUNT INCLUDES THE [facility] Stop: 08/10/21 09:16 Last Admin: 08/10/21 10:51 Dose: 4 mls/sec Documented by: Iopamidol (Iopamidol 755 Mg/Ml 100 Ml Bottle) 100 ml IV . DIRECTED ONE Stop: 08/10/21 09:15 Last Admin: 08/10/21 10:51 Dose: 100 ml Documented by: Lorazepam (Lorazepam 2 Mg/Ml Sdv) 1 mg IVPUSH ONETIME ONE Stop: 08/09/21 04:47 Last Admin: 08/09/21 04:52 Dose: 1 mg Documented by: Lorazepam (Lorazepam 2 Mg/Ml Sdv) Confirm Administered Dose 2 mg .ROUTE .STK-MED ONE Stop: 08/09/21 04:51 Last Admin: 08/09/21 05:27 Dose: Not Given Documented by: Methylprednisolone Sodium Succinate (Methylprednisolone Sodium Succinate 125 Mg/2 Ml Sdv) 125 mg IVPUSH ONETIME ONE Stop: 08/07/21 11:07 Last Admin: 08/07/21 11:09 Dose: 125 mg Documented by: Metoprolol Tartrate (Metoprolol Tartrate 25 Mg Tab) 12.5 mg PO Q6H COUNT INCLUDES THE [facility] Last Admin: 08/14/21 02:27 Dose: Not Given Documented by: Morphine Sulfate (Morphine 2 Mg/Ml Syringe) Confirm Administered Dose 2 mg .ROUTE .STK-MED ONE Stop: 08/09/21 06:02 Last Admin: 08/09/21 06:21 Dose: Not Given Documented by: Potassium Chloride (Potassium Chloride 20 Meq Tab.Er) 40 meq PO ONETIME ONE Stop: 08/08/21 09:31 Last Admin: 08/08/21 09:58 Dose: 40 meq Documented by: Potassium Chloride (Potassium Chloride 20 Meq Tab.Er) 40 meq PO ONETIME ONE Stop: 08/08/21 17:01 Last Admin: 08/08/21 17:08 Dose: 40 meq Documented by: Propofol (Propofol 200 Mg/20 Ml Sdv) 200 mg .ROUTE .STK-MED ONE Stop: 08/09/21 10:01 Sodium Polystyrene Sulfonate (Sodium Polystyrene Sulfonate 15 Gm/60 Ml Susp 60 Ml Bot) 30 gm PO ONETIME ONE Stop: 08/10/21 16:46 Last Admin: 08/10/21 17:59 Dose: 30 gm Documented by: Sodium Polystyrene Sulfonate (Sodium Polystyrene Sulfonate 15 Gm/60 Ml Susp 60 Ml Bot) 30 gm PO ONETIME ONE Stop: 08/12/21 08:23 Last Admin: 08/12/21 09:20 Dose: 30 gm Documented by: Succinylcholine Chloride (Succinylcholine 200 Mg/10 Ml Mdv) 200 mg .ROUTE .STK- MED ONE Stop: 08/09/21 10:01 Tamsulosin HCl (Tamsulosin 0.4 Mg Cap.Er) 0.4 mg PO BEDTIME [facility] Last Admin: 08/09/21 21:13 Dose: Not Given Documented by: - Exam Quality Assessment: Supplemental Oxygen Central Line Total Time: 4Days 15Hours Urinary Catheter Total Time: 7Days 4Hours General: No Acute Distress, Sedated. No: Alert HEENT: Pupils Equal. No: Scleral Icterus Neck: Supple, No JVD Lungs: Normal Respiratory Effort, Decreased Breath Sounds (both bases), Crackles (mild both lower lungs) Cardiovascular: Regular Rate, Regular Rhythm GI/Abdominal Exam: Normal Bowel Sounds, Soft, No Distention Extremities: Pedal Edema (mild bilateral edema). No: Increased Warmth Skin: Warm, Dry. No: Rash Psy/Mental Status: No: Alert, Agitated - Patient Data Lab Results Last 24 hrs: Laboratory Results - last 24 hr 08/15/21 08/15/21 08/15/21 Range/Units 05:20 05:20 05:20 WBC 13.4 H (4.5-11.0) K/uL RBC 3.99 L (4.30-5.90) M/uL Hgb 12.0 (12.0-15.0) g/dL Hct 40.0 (40.0-54.0) % MCV 100 H (80-98) fL MCH 30 (27-31) pg MCHC 30 L (32-36) % Plt Count 493 H (150-400) K/uL Puncture Site A-line ABG pH 7.330 L (7.350-7.450) ABG pCO2 73.6 H* (35.0-42.0) mmHg ABG pO2 70.8 L (75.0-100.0) mmHg ABG HCO3 37.7 H (22.0-26.0) mmol/L ABG Total CO2 34.7 H (23.0-27.0) mmol/L ABG O2 Saturation 93.3 L (95.0-98.0) % ABG O2 Content 15.5 (15.0-23.0) %vol ABG Base Excess 9.6 mm/L ABG Hemoglobin 12.1 L (13.5-18.0) g/dL ABG Oxyhemoglobin 90.9 % ABG Carboxyhemoglobin 1.4 (0.0-1.6) % ABG Methemoglobin 1.2 % [place] Test A-line O2 Delivery Device Ventilator Oxygen Flow Rate L Sodium 150 H (140-148) mmol/L Potassium 4.5 (3.6-5.2) mmol/L Chloride 109 H (100-108) mmol/L Carbon Dioxide 37 H (21-32) mmol/L Anion Gap 8.5 (5.0-14.0) mmol/L BUN 54 H (7-18) mg/dL Creatinine 1.2 (0.8-1.3) mg/dL Est Cr Clr Drug Dosing 82.50 mL/min Estimated GFR (MDRD) > 60 (>60) Glucose 142 H (74-106) mg/dL Calcium 7.5 L (8.5-10.1) mg/dL Magnesium 3.5 H (1.8-2.4) mg/dL Result Diagrams: 08/15/21 05:20 08/15/21 05:20 Sepsis Event Note - Evaluation Sepsis Screening Result: Severe Sepsis Risk - Focused Exam Vital Signs: Vital Signs Temp Pulse Pulse Resp BP BP Pulse Ox 08/15/21 09:16 101 H 110/62 08/15/21 08:00 99 30 H 114/66 93 L 08/15/21 07:00 88 28 H 114/57 L 93 L 08/15/21 06:00 90 29 H 105/60 93 L 08/15/21 05:00 92 29 H 117/64 93 L 08/15/21 04:00 91 29 H 118/65 90 L 08/15/21 03:00 91 28 H 115/70 90 L 08/15/21 02:00 90 29 H 111/64 90 L 08/15/21 01:00 94 30 H 104/54 L 90 L 08/15/21 00:00 36.2 C 94 28 H 113/62 90 L 08/14/21 23:00 93 28 H 108/63 89 L - Problem List Review Problem List Initiated/Reviewed/Updated: Yes - My Orders Last 24 Hours: My Active Orders 08/14/21 10:17 Initiate/Renew Non-Violent Restraints (All Ages) Q24H 08/14/21 10:18 Consult to Dietary [Consult to Business Intelligence Director] [CONS] Routine 08/14/21 14:21 Enteral Feedings [RC] Click to Edit 08/15/21 03:30 Insert Urinary Catheter [OM.PC] Q24H 08/15/21 08:20 Renew/Continue Urinary Catheter [OM.PC] Routine 08/15/21 09:00 Furosemide [Lasix] 40 mg IVPUSH BID 08/15/21 11:00 BLOOD GAS ARTERIAL [BG] Timed 08/16/21 05:00 BASIC METABOLIC PANEL,BMP [CHEM] Timed BLOOD GAS ARTERIAL [BG] Timed CBC W/O DIFF,HEMOGRAM [HEME] Timed (1) CRP [C-REACTIVE PROTEIN] [CHEM] Timed D-DIMER QUANTITATIVE [COAG] Timed PROCALCITONIN [CHEM] Routine 08/16/21 05:11 Chest 1V Frontal [CR] DAILY 08/17/21 05:11 Chest 1V Frontal [CR] DAILY 08/18/21 05:11 Chest 1V Frontal [CR] DAILY - Plan Plan:: ASSESSMENT AND PLAN - COVID-19 PNEUMONIA-complicated by acute hypoxic respiratory failure. Stable on the ventilator. FiO2 stable at 60-65%. Unable to prone. We are seeing improvements in his PCO2 with ventilator changes. Plateau pressure less than 30. -Mechanical ventilation -He has completed 7 days of doxycycline and ceftriaxone -Goal of neutral or negative fluid balance -Prone positioning if able -Dexamethasone 6 mg IV daily, today is day 9 -Baricitinib 4 mg p.o. daily, today is day 9 of 14 -IV propofol for sedation -Twice daily diuresis ACUTE HYPOXIC RESPIRATORY FAILURE-secondary to COVID-19 infection and underlying COPD. -Continue current ventilator management BILATERAL PULMONARY EMBOLI-described as primarily nonocclusive on CT scan report. -Enoxaparin 110 mg subcutaneous every 12 hours ARDS-secondary to COVID-19 infection -Management as above Hypernatremia-secondary to free water deficit. Slowly improving with free water flushes. COPD-respiratory status stable. -Continue outpatient medications CHRONIC KIDNEY DISEASE IIIa-renal function stable over the past few days -Closely monitor urine output and renal function BLADDER OUTLET OBSTRUCTION-Paulino catheter MAINTENANCE ISSUES -DVT prophylaxis; enoxaparin -GI prophylaxis; Protonix 40 mg IV daily -Paulino catheter; Paulino catheter placed because of urinary retention and strict I/O monitoring in a critical patient -Nutrition; tube feeding DISPOSITION-anticipate transfer to a higher level of care when a critical care bed is available Zev Chapman MD
[2021-08-15] MEDS: Heparin Sodium 5,000 UNITS in Sodium Chloride 0.9% 500 ML IV SCH (12:58)
[2021-08-16] MEDS: propofoL 100 ML IV SCH ×3 (03:17→11:06)
[2021-08-16] MEDS: Formoterol/Mometasone 200-5 MCG 8.8 GM Inhaler IH SCH (07:06)
[2021-08-16] MEDS: Dexamethasone 4 MG/ML SDV IVPUSH SCH (08:27)
[2021-08-16] MEDS: Furosemide 40 MG/4 ML VIAL IVPUSH SCH (08:28)
[2021-08-16] MEDS: Pantoprazole 40 MG Vial IVPUSH SCH (08:28)
[2021-08-16] MEDS: Metoprolol Tartrate 25 MG Tab PO SCH (08:29)
[2021-08-16] MEDS: Enoxaparin 120 MG/0.8 ML Syringe SUBCUT SCH (09:59)
--- NOTE | 2021-08-16 10:35 | PCM.DCSUM1 ---
Discharge Summary - Hospital Course Brief History: 61-year-old unvaccinated male with history of obesity and asthma who presented with increasing cough, shortness of breath and weakness. Work-up in the emergency room suggested covid pneumonia with bilateral infiltrates, acute respiratory failure with hypoxia requiring high flow nasal cannula oxygen supplementation. He was admitted to the hospital for further management. Diagnosis: Stroke: No - Discharge Data Discharge Date: 08/16/21 Discharge Disposition: DC/Tfer to Acute Hospital 02 Condition: Critical - Referral to Home Health Primary Care Physician: PCP Unknown - Discharge Diagnosis/Problem(s) (1) Pneumonia due to COVID-19 virus SNOMED Code(s): 764486736376689587 ICD Code: U07.1 - COVID-19; J12.82 - PNEUMONIA DUE TO CORONAVIRUS DISEASE 2018 Status: Acute Current Visit: Yes (2) Acute respiratory failure with hypoxia SNOMED Code(s): 94469080, 993865317 ICD Code: J96.01 - ACUTE RESPIRATORY FAILURE WITH HYPOXIA Status: Acute Current Visit: Yes (3) Asthma SNOMED Code(s): 701205544 ICD Code: J45.909 - UNSPECIFIED ASTHMA, UNCOMPLICATED Status: Chronic Current Visit: Yes Qualifiers: Asthma severity: moderate Asthma complication type: unspecified (4) Obesity (BMI 35.0-39.9 without comorbidity) SNOMED Code(s): 287102527, 117727068 ICD Code: E66.9 - OBESITY, UNSPECIFIED Status: Chronic Current Visit: Yes - Patient Summary/Data Consults: Consultations 08/14/21 10:18 Consult to Dietary [Consult to Dietary Server] [CONS] Routine Comment: Physician Instructions: Quantity: Reason for Consult: tube feeding recs Hospital Course: Fuad presented to the emergency room with increasing cough, shortness of breath and weakness. Work-up in the emergency room suggested Covid infection with bilateral pneumonia and acute respiratory failure with hypoxia. He was quite hypoxic on arrival but did eventually stabilize with heated/high flow nasal cannula. D-dimer was moderately at 1900 elevated and CRP was 24. Procalcitonin level was 1. He was started on dexamethasone 6 mg, remdesivir as well as baricitinib. He was started on enoxaparin at prophylactic dose. He was admitted to the hospital for further management. Over the next 48 hours unfortunately we had a decline in his respiratory status. He required intubation and mechanical ventilation. With the decline in his respiratory status we did add empiric ceftriaxone and doxycycline. The remdesivir was stopped at this point. After intubation he was in the intensive care unit. The next day we did perform a CT pulmonary angiogram which revealed infiltrates consistent with Covid infection as well as bilateral subsegmental pulmonary emboli. His enoxaparin was increased to 1 mg/kg every 12 hours at this point. Over the next couple of days we did see some improvement and we were able to wean down the FiO2. He remained on a high PEEP at 16. We did see some bleeding from his gums so his enoxaparin was decreased down to 0.75 mg/kg (110 mg every 12 hours). This seemed to stop the bleeding difficulties. Over the next couple of days we saw further improvement. We are able to wean the FiO2 down to 65 percent. He did continue to have hypercapnia which did start to rise early in the week. At this point I decreased his PEEP and increased his tidal volume with good response and decreasing PCO2 levels. He is currently on 5 mL/kg ideal body weight for his tidal volume and a PEEP of 12. Plateau pressures have been in the upper 20s. Today will be day 10 of steroids as well as baricitinib. He has completed 7 days of doxycycline and ceftriaxone. He has been receiving therapeutic dose enoxaparin since 08/10. He has been receiving propofol for sedation. He currently has an arterial line in the left wrist. He has a PICC line in the right antecubital fossa. He has a Paulino catheter. Patient remains critically ill with intubation and mechanical ventilation. Plan is for transfer to [facility] for ongoing management with the student development coordinator team. Dr Keene is the accepting physician. He will be transferred via air ambulance because of the critical nature of his illness. - Patient Instructions Diet: NPO Activity: As Tolerated Other/Special Instructions: transfer to [facility] - Dr Keene accepting. covid pneumonia with resp failure - Discharge Plan *PRESCRIPTION DRUG MONITORING PROGRAM REVIEWED*: Not Applicable *COPY OF PRESCRIPTION DRUG MONITORING REPORT IN PATIENT MARVA: Not Applicable Home Medications: Home Meds Albuterol Sulfate [Albuterol Sulfate Hfa] 1 dose INH ASDIRECTED 08/07/21 [History] Fluticasone Propion/Salmeterol [Fluticasone-Salmeterol 250-50] 1 dose INH ASDIRECTED 08/07/21 [History] Oxygen Therapy Mode: Mechanical Ventilation Referrals: PCP,Unknown [Primary Care Provider] - - Discharge Summary/Plan Comment DC Time >30 min.: Yes Total # of Minutes for Discharge Time: 60 -transfer to acute hospital - Patient Data Vitals - Most Recent: Last Vital Signs Temp 36.4 C 08/16/21 10:00 Pulse 84 08/16/21 10:00 Resp 18 08/16/21 10:00 BP 93/55 L 08/16/21 10:00 Pulse Ox 91 L 08/16/21 10:00 Weight - Most Recent: 145.5 kg I&O - Last 24 hours: Intake & Output 08/15/21 08/16/21 08/16/21 22:59 06:59 14:59 Intake Total 1278 1282 Output Total 300 1250 710 Balance 978 32 -710 Lab Results - Last 24 hrs: Laboratory Results - last 24 hr 08/15/21 08/15/21 08/16/21 Range/Units 11:00 16:52 05:55 WBC 15.4 H (4.5-11.0) K/uL RBC 3.63 L (4.30-5.90) M/uL Hgb 11.5 L (12.0-15.0) g/dL Hct 36.4 L (40.0-54.0) % MCV 100 H (80-98) fL MCH 32 H (27-31) pg MCHC 32 (32-36) % Plt Count 448 H (150-400) K/uL D-Dimer, Quantitative (0.0-500.0) ng/mL Puncture Site A-line A-line ABG pH 7.430 7.486 H (7.350-7.450) ABG pCO2 58.3 H 50.3 H (35.0-42.0) mmHg ABG pO2 51.7 L 70.9 L (75.0-100.0) mmHg ABG HCO3 38.0 H 37.6 H (22.0-26.0) mmol/L ABG Total CO2 34.5 H 33.8 H (23.0-27.0) mmol/L ABG O2 Saturation 87.8 L 95.8 (95.0-98.0) % ABG O2 Content 13.9 L 14.8 L (15.0-23.0) %vol ABG Base Excess 11.8 12.5 mm/L ABG Hemoglobin 11.5 L 11.3 L (13.5-18.0) g/dL ABG Oxyhemoglobin 85.5 92.6 % ABG Carboxyhemoglobin 1.7 H 2.5 H (0.0-1.6) % ABG Methemoglobin 0.9 0.8 % [place] Test A-line N/a O2 Delivery Device Ventilator Ventilator Oxygen Flow Rate L Sodium (140-148) mmol/L Potassium (3.6-5.2) mmol/L Chloride (100-108) mmol/L Carbon Dioxide (21-32) mmol/L Anion Gap (5.0-14.0) mmol/L BUN (7-18) mg/dL Creatinine (0.8-1.3) mg/dL Est Cr Clr Drug Dosing mL/min Estimated GFR (MDRD) (>60) Glucose (74-106) mg/dL Calcium (8.5-10.1) mg/dL C-Reactive Protein (0.0-0.3) mg/dL Procalcitonin ng/mL 08/16/21 08/16/21 08/16/21 Range/Units 05:55 05:55 05:55 WBC (4.5-11.0) K/uL RBC (4.30-5.90) M/uL Hgb (12.0-15.0) g/dL Hct (40.0-54.0) % MCV (80-98) fL MCH (27-31) pg MCHC (32-36) % Plt Count (150-400) K/uL D-Dimer, Quantitative 4383.64 H (0.0-500.0) ng/mL Puncture Site Lt radial ABG pH 7.479 H (7.350-7.450) ABG pCO2 52.6 H (35.0-42.0) mmHg ABG pO2 70.5 L (75.0-100.0) mmHg ABG HCO3 38.7 H (22.0-26.0) mmol/L ABG Total CO2 34.6 H (23.0-27.0) mmol/L ABG O2 Saturation 95.1 (95.0-98.0) % ABG O2 Content 15.2 (15.0-23.0) %vol ABG Base Excess 13.2 mm/L ABG Hemoglobin 11.8 L (13.5-18.0) g/dL ABG Oxyhemoglobin 91.8 % ABG Carboxyhemoglobin 2.5 H (0.0-1.6) % ABG Methemoglobin 1.0 % [place] Test A-line O2 Delivery Device Ventilator Oxygen Flow Rate L Sodium 150 H (140-148) mmol/L Potassium 3.7 (3.6-5.2) mmol/L Chloride 107 (100-108) mmol/L Carbon Dioxide 39 H (21-32) mmol/L Anion Gap 7.7 (5.0-14.0) mmol/L BUN 52 H (7-18) mg/dL Creatinine 1.2 (0.8-1.3) mg/dL Est Cr Clr Drug Dosing 82.50 mL/min Estimated GFR (MDRD) > 60 (>60) Glucose 139 H (74-106) mg/dL Calcium 7.6 L (8.5-10.1) mg/dL C-Reactive Protein 6.92 H (0.0-0.3) mg/dL Procalcitonin ng/mL 08/16/21 Range/Units 05:55 WBC (4.5-11.0) K/uL RBC (4.30-5.90) M/uL Hgb (12.0-15.0) g/dL Hct (40.0-54.0) % MCV (80-98) fL MCH (27-31) pg MCHC (32-36) % Plt Count (150-400) K/uL D-Dimer, Quantitative (0.0-500.0) ng/mL Puncture Site ABG pH (7.350-7.450) ABG pCO2 (35.0-42.0) mmHg ABG pO2 (75.0-100.0) mmHg ABG HCO3 (22.0-26.0) mmol/L ABG Total CO2 (23.0-27.0) mmol/L ABG O2 Saturation (95.0-98.0) % ABG O2 Content (15.0-23.0) %vol ABG Base Excess mm/L ABG Hemoglobin (13.5-18.0) g/dL ABG Oxyhemoglobin % ABG Carboxyhemoglobin (0.0-1.6) % ABG Methemoglobin % [place] Test O2 Delivery Device Oxygen Flow Rate L Sodium (140-148) mmol/L Potassium (3.6-5.2) mmol/L Chloride (100-108) mmol/L Carbon Dioxide (21-32) mmol/L Anion Gap (5.0-14.0) mmol/L BUN (7-18) mg/dL Creatinine (0.8-1.3) mg/dL Est Cr Clr Drug Dosing mL/min Estimated GFR (MDRD) (>60) Glucose (74-106) mg/dL Calcium (8.5-10.1) mg/dL C-Reactive Protein (0.0-0.3) mg/dL Procalcitonin 0.52 ng/mL Med Orders - Current: Current Medications Acetaminophen (Acetaminophen 325 Mg Tab) 650 mg PO Q4H PRN PRN Reason: Pain (Mild 1-3)/fever Last Admin: 08/08/21 20:01 Dose: 325 mg Documented by: Albuterol (Albuterol 8 Gm Inhaler) 0 gm INH ASDIRECTED PRN PRN Reason: Shortness of Breath Last Admin: 08/09/21 05:53 Dose: 1 puff Documented by: Baricitinib (Baricitinib 2 Mg Tab) 4 mg PO DAILY [facility] Stop: 08/20/21 09:01 Last Admin: 08/16/21 08:29 Dose: 4 mg Documented by: Dexamethasone (Dexamethasone 4 Mg/Ml Sdv) 6 mg IVPUSH Q24H [facility] Last Admin: 08/16/21 08:27 Dose: 6 mg Documented by: Dimethicone/Zinc Oxide (Dimethicone 20%/Zinc Oxide 25% 56 Gm [place] Bottle) 1 gm TOP ASDIRECTED PRN PRN Reason: groin Enoxaparin Sodium (Enoxaparin 120 Mg/0.8 Ml Syringe) 110 mg SUBCUT Q12H [facility] Last Admin: 08/16/21 09:59 Dose: 110 mg Documented by: Furosemide (Furosemide 40 Mg/4 Ml Vial) 40 mg IVPUSH BID [facility] Last Admin: 08/16/21 08:28 Dose: 40 mg Documented by: Heparin Sodium (Porcine) 5,000 (units/ Sodium Chloride) 501 mls @ 5 mls/hr IV Q72H [facility] Last Admin: 08/15/21 12:58 Dose: 5 mls/hr Documented by: Propofol (Diprivan 100 Ml) 100 mls @ 4.042 mls/hr IV TITRATE [facility]; Protocol Last Admin: 08/16/21 07:03 Dose: 30 mcg/kg/min, 24.249 mls/hr Documented by: Dextrose/Water (Dextrose 5% In Water) 1,000 mls @ 0 mls/hr IV ASDIRECTED [facility] Last Admin: 08/15/21 10:07 Dose: 25 mls/hr Documented by: Lorazepam (Lorazepam 0.5 Mg Tab) 0.5 mg PO Q4H PRN PRN Reason: Anxiety Last Admin: 08/09/21 08:11 Dose: 0.5 mg Documented by: Metoprolol Tartrate (Metoprolol Tartrate 25 Mg Tab) 12.5 mg PO BID [facility] Last Admin: 08/16/21 08:29 Dose: 12.5 mg Documented by: Mometasone Furoate/Formoterol Fumar (Formoterol/Mometasone 200-5 Mcg 8.8 Gm Inhaler) 2 puff IH BIDRT [facility] Last Admin: 08/16/21 07:06 Dose: 2 puff Documented by: Morphine Sulfate (Morphine 2 Mg/Ml Syringe) 2 mg IVPUSH Q2H PRN PRN Reason: AIR HUNGER Last Admin: 08/09/21 08:11 Dose: 2 mg Documented by: Ondansetron HCl (Ondansetron 4 Mg/2 Ml Sdv) 4 mg IV Q4H PRN PRN Reason: Nausea/Vomiting Pantoprazole Sodium (Pantoprazole 40 Mg Vial) 40 mg IVPUSH DAILY [facility] Last Admin: 08/16/21 08:28 Dose: 40 mg Documented by: Polyethylene Glycol (Polyethylene Glycol 3350 Powder 17 Gm Packet) 17 gm PO DAILY PRN PRN Reason: Constipation Sodium Chloride (Sodium Chloride 0.9% 10 Ml Syringe) 10 ml FLUSH ASDIRECTED PRN PRN Reason: Keep Vein Open Discontinued Medications Acetaminophen (Acetaminophen 325 Mg Tab) Confirm Administered Dose 325 mg .ROUTE .STK-MED ONE Stop: 08/08/21 20:16 Last Admin: 08/08/21 20:31 Dose: 325 mg Documented by: Azithromycin (Azithromycin 250 Mg Tab) 250 mg PO DAILY [facility] Last Admin: 08/08/21 00:02 Dose: 500 mg Documented by: Azithromycin (Azithromycin 250 Mg Tab) 250 mg PO BEDTIME [facility] Stop: 08/11/21 21:01 Baricitinib (Baricitinib 2 Mg Tab) 2 mg PO DAILY [facility] Stop: 08/20/21 09:01 Last Admin: 08/09/21 10:50 Dose: Not Given Documented by: Baricitinib (Baricitinib 2 Mg Tab) 4 mg PO DAILY [facility] Stop: 08/20/21 09:01 Last Admin: 08/12/21 09:09 Dose: 4 mg Documented by: Baricitinib (Baricitinib 2 Mg Tab) 2 mg PO DAILY [facility] Stop: 08/20/21 09:01 Last Admin: 08/11/21 09:36 Dose: 2 mg Documented by: Benzonatate (Benzonatate 100 Mg Cap) 100 mg PO Q6H PRN PRN Reason: Cough Last Admin: 08/08/21 20:01 Dose: 100 mg Documented by: Digoxin (Digoxin 500 Mcg/2 Ml Amp) 250 mcg IVPUSH ONETIME ONE Stop: 08/11/21 03:47 Last Admin: 08/11/21 03:57 Dose: 250 mcg Documented by: Digoxin (Digoxin 500 Mcg/2 Ml Amp) 250 mcg IVPUSH ONETIME ONE Stop: 08/11/21 11:27 Last Admin: 08/11/21 12:51 Dose: 250 mcg Documented by: Digoxin (Digoxin 500 Mcg/2 Ml Amp) 250 mcg IVPUSH ONETIME ONE Stop: 08/12/21 08:28 Last Admin: 08/12/21 09:20 Dose: 250 mcg Documented by: Enoxaparin Sodium (Enoxaparin 40 Mg/0.4 Ml Syringe) 40 mg SUBCUT Q24H [facility] Last Admin: 08/09/21 16:51 Dose: 40 mg Documented by: Enoxaparin Sodium (Enoxaparin 150 Mg/1 Ml Syringe) 150 mg SUBCUT Q12H [facility] Last Admin: 08/11/21 08:32 Dose: 150 mg Documented by: Furosemide (Furosemide 20 Mg/2 Ml Vial) 20 mg IVPUSH NOW ONE Stop: 08/09/21 09:01 Last Admin: 08/09/21 09:14 Dose: 20 mg Documented by: Furosemide (Furosemide 20 Mg/2 Ml Vial) 20 mg IVPUSH NOW ONE Stop: 08/10/21 08:31 Last Admin: 08/10/21 09:29 Dose: 20 mg Documented by: Furosemide (Furosemide 20 Mg/2 Ml Vial) 20 mg IVPUSH NOW ONE Stop: 08/12/21 08:36 Last Admin: 08/12/21 09:15 Dose: 20 mg Documented by: Furosemide (Furosemide 20 Mg/2 Ml Vial) 20 mg IVPUSH NOW ONE Stop: 08/13/21 20:01 Last Admin: 08/13/21 19:59 Dose: 20 mg Documented by: Furosemide (Furosemide 20 Mg/2 Ml Vial) 20 mg IVPUSH BID [facility] Last Admin: 08/14/21 20:37 Dose: 20 mg Documented by: Remdesivir 200 mg/ Sodium (Chloride) 250 mls @ 250 mls/hr IV ONETIME ONE Stop: 08/07/21 13:59 Last Admin: 08/07/21 13:09 Dose: 250 mls/hr Documented by: Remdesivir 100 mg/ Sodium (Chloride) 100 mls @ 100 mls/hr IV Q24H [facility] Stop: 08/11/21 13:59 Last Admin: 08/08/21 15:17 Dose: 100 mls/hr Documented by: Doxycycline Hyclate 100 mg/ (Sodium Chloride) 100 mls @ 100 mls/hr IV Q12H [facility] Last Admin: 08/14/21 20:35 Dose: 100 mls/hr Documented by: Doxycycline Hyclate 100 mg/ (Sodium Chloride) 100 mls @ 100 mls/hr IV NOW ONE Stop: 08/08/21 00:59 Last Admin: 08/08/21 00:02 Dose: 100 mls/hr Documented by: Ceftriaxone Sodium 1 gm/ (Sodium Chloride) 50 mls @ 100 mls/hr IV Q24H [facility] Last Admin: 08/14/21 10:38 Dose: 100 mls/hr Documented by: Propofol (Diprivan 100 Ml) Confirm Administered Dose 100 mls @ as directed .ROUTE .STK-MED ONE Stop: 08/09/21 09:36 Last Admin: 08/09/21 10:49 Dose: Not Given Documented by: Sodium Chloride (Normal Saline) 100 mls @ 4 mls/sec IV ASDIRECTED [facility] Stop: 08/10/21 09:16 Last Admin: 08/10/21 10:51 Dose: 4 mls/sec Documented by: Iopamidol (Iopamidol 755 Mg/Ml 100 Ml Bottle) 100 ml IV . DIRECTED ONE Stop: 08/10/21 09:15 Last Admin: 08/10/21 10:51 Dose: 100 ml Documented by: Lorazepam (Lorazepam 2 Mg/Ml Sdv) 1 mg IVPUSH ONETIME ONE Stop: 08/09/21 04:47 Last Admin: 08/09/21 04:52 Dose: 1 mg Documented by: Lorazepam (Lorazepam 2 Mg/Ml Sdv) Confirm Administered Dose 2 mg .ROUTE .STK-MED ONE Stop: 08/09/21 04:51 Last Admin: 08/09/21 05:27 Dose: Not Given Documented by: Methylprednisolone Sodium Succinate (Methylprednisolone Sodium Succinate 125 Mg/2 Ml Sdv) 125 mg IVPUSH ONETIME ONE Stop: 08/07/21 11:07 Last Admin: 08/07/21 11:09 Dose: 125 mg Documented by: Metoprolol Tartrate (Metoprolol Tartrate 25 Mg Tab) 12.5 mg PO Q6H [facility] Last Admin: 08/14/21 02:27 Dose: Not Given Documented by: Morphine Sulfate (Morphine 2 Mg/Ml Syringe) Confirm Administered Dose 2 mg .ROUTE .STK-MED ONE Stop: 08/09/21 06:02 Last Admin: 08/09/21 06:21 Dose: Not Given Documented by: Potassium Chloride (Potassium Chloride 20 Meq Tab.Er) 40 meq PO ONETIME ONE Stop: 08/08/21 09:31 Last Admin: 08/08/21 09:58 Dose: 40 meq Documented by: Potassium Chloride (Potassium Chloride 20 Meq Tab.Er) 40 meq PO ONETIME ONE Stop: 08/08/21 17:01 Last Admin: 08/08/21 17:08 Dose: 40 meq Documented by: Propofol (Propofol 200 Mg/20 Ml Sdv) 200 mg .ROUTE .STK-MED ONE Stop: 08/09/21 10:01 Sodium Polystyrene Sulfonate (Sodium Polystyrene Sulfonate 15 Gm/60 Ml Susp 60 Ml Bot) 30 gm PO ONETIME ONE Stop: 08/10/21 16:46 Last Admin: 08/10/21 17:59 Dose: 30 gm Documented by: Sodium Polystyrene Sulfonate (Sodium Polystyrene Sulfonate 15 Gm/60 Ml Susp 60 Ml Bot) 30 gm PO ONETIME ONE Stop: 08/12/21 08:23 Last Admin: 08/12/21 09:20 Dose: 30 gm Documented by: Succinylcholine Chloride (Succinylcholine 200 Mg/10 Ml Mdv) 200 mg .ROUTE .STK- MED ONE Stop: 08/09/21 10:01 Tamsulosin HCl (Tamsulosin 0.4 Mg Cap.Er) 0.4 mg PO BEDTIME [facility] Last Admin: 08/09/21 21:13 Dose: Not Given Documented by:
--- NOTE | 2021-08-17 08:58 | CR ---
CHEST: Portable 08/16/2021 at 12:12 PM CLINICAL HISTORY:Pneumonia, intubation COMPARISON:08/14/2021 FINDINGS: Diffuse bilateral infiltrates persist. There is increased density in the right lower lobe compared to prior study. Endotracheal tube is in the upper third of the trachea. PICC line remains in place. There is an NG tube. IMPRESSION: Persistent moderate diffuse pneumonic infiltrates. Increasing density in the right lower lobe Tubes and catheters described above
== END 2021-08-16 12:25 | DRG 870 ==
LOC: JP.ED 10:29 → JP.2SS 12:34 → JP.ICU 08-09 09:51
PROVIDERS: ADMIT Hospitalist; ATTEND Internal Medicine
PROC: XW033E5 Introduction of Remdesivir Anti-infective into Peripheral Vein, Percutaneous Approach, New Technology Group 5 (ICD-10-PCS; principal; 2021-08-07)
PROC: 3E0333Z Introduction of Anti-inflammatory into Peripheral Vein, Percutaneous Approach (ICD-10-PCS; 2021-08-08)
PROC: 5A1955Z Respiratory Ventilation, Greater than 96 Consecutive Hours (ICD-10-PCS; 2021-08-09)
PROC: XW0DXM6 Introduction of Baricitinib into Mouth and Pharynx, External Approach, New Technology Group 6 (ICD-10-PCS; 2021-08-09)
PROC: 0BH17EZ Insertion of Endotracheal Airway into Trachea, Via Natural or Artificial Opening (ICD-10-PCS; 2021-08-09)
DX: A41.89 Other specified sepsis (principal); U07.1 COVID-19; R09.02 Hypoxemia; J12.82 Pneumonia due to coronavirus disease 2019; I26.94 Multiple subsegmental thrombotic pulmonary emboli without acute cor pulmonale; J80 Acute respiratory distress syndrome; E04.2 Nontoxic multinodular goiter; J44.0 Chronic obstructive pulmonary disease with (acute) lower respiratory infection; E87.0 Hyperosmolality and hypernatremia; J45.909 Unspecified asthma, uncomplicated; H54.7 Unspecified visual loss; E66.9 Obesity, unspecified; M54.9 Dorsalgia, unspecified; G89.29 Other chronic pain; N32.0 Bladder-neck obstruction; N18.31 Chronic kidney disease, stage 3a; Z88.0 Allergy status to penicillin; Z79.899 Other long term (current) drug therapy; Z98.890 Other specified postprocedural states; Z87.891 Personal history of nicotine dependence
CPT/HCPCS: 0241U; 36415; 36600; 51702; 71045; 71275; 80048; 80053; 80162; 81001; 82803; 83605; 83735; 84145; 84295; 84484; 85025; 85027; 85379; 85384; 85610; 85730; 86140; 87040; 93306; 94002; 94003; 94640; 94660; 94762; 96365; 96375; 99285; A9270-GY; C1751; C9113; J0330; J0696; J1100; J1160; J1644; J1650; J1940; J2060; J2270; J2704; J2930; J3490; J7040; J7050; J7060; Q9967